=== PATIENT | female | born 1955 | race American Indian/Alaskan Native ===

== ENCOUNTER 2017-06-24 14:56 | Outpatient (CLI) | payer BC ==
--- NOTE | 2017-06-24 16:42 | XRay Report ---
FINAL REPORT EXAM: XR CHEST ROUTINE 2V HISTORY: HYPERTENSION TECHNIQUE: Two view chest PA and lateral PRIORS: None. FINDINGS: Cardiac and mediastinal contours are unremarkable. No focal pulmonary infiltrate is identified. No pleural fluid collection seen. Pulmonary vasculature is unremarkable. IMPRESSION: Negative two-view chest
== END 2017-06-24 14:57 | disposition home or self-care (01) ==
LOC: CARD 14:56
PROVIDERS: ATTEND Internal Medicine
DX: E11.9 Type 2 diabetes mellitus without complications (principal); I10 Essential (primary) hypertension; I51.7 Cardiomegaly; G43.909 Migraine, unspecified, not intractable, without status migrainosus; M79.89 Other specified soft tissue disorders; R79.89 Other specified abnormal findings of blood chemistry; Z79.4 Long term (current) use of insulin
CPT/HCPCS: 71046; 93005; 93010

== ENCOUNTER 2017-09-13 13:17 | Emergency (ER) | payer BC ==
--- NOTE | 2017-09-13 14:11 | Emergency Department Report ---
ED Abdominal Pain HPI - General Chief Complaint: Abdominal Pain Stated Complaint: ABD PAIN Time Seen by Provider: 09/13/17 14:04 Source: patient Mode of arrival: Ambulatory Limitations: No Limitations - History of Present Illness MD Complaint: abdominal pain -: Gradual, week(s) (1) Location: RUQ Radiation: back Migration to: no migration Severity: severe Severity scale (0 -10): 7 Quality: cramping Consistency: intermittent Context: other (when to pmd today, sent to ed for " liver imaging" ) - Related Data Previous Rx's Medication Instructions Recorded Last Taken Type Bisacodyl [Dulcolax suppos] 10 mg ND ONCE PRN #6 supp.rect 09/13/17 Unknown Rx Allergies Allergy/AdvReac Type Severity Reaction Status Date / Time No Known Allergies Allergy Unverified 06/24/17 14:57 ED Review of Systems ROS: Stated complaint: ABD PAIN Other details as noted in HPI Constitutional: denies: chills, fever Eyes: denies: eye pain, eye discharge, vision change ENT: denies: ear pain, throat pain Respiratory: denies: cough, shortness of breath, wheezing Cardiovascular: denies: chest pain, palpitations Endocrine: no symptoms reported Gastrointestinal: abdominal pain, nausea. denies: diarrhea Genitourinary: denies: urgency, dysuria, discharge Musculoskeletal: denies: back pain, joint swelling, arthralgia Skin: denies: rash, lesions Neurological: denies: headache, weakness, paresthesias Psychiatric: denies: anxiety, depression Hematological/Lymphatic: denies: easy bleeding, easy bruising ED Past Medical Hx - Past Medical History Hx Hypertension: Yes Hx Diabetes: Yes - Social History Smoking Status: Never Smoker Substance Use Type: None - Medications Home Medications: Home Medications Medication Instructions Recorded Confirmed Last Taken Type Bisacodyl [Dulcolax suppos] 10 mg ND ONCE PRN #6 supp.rect 09/13/17 Unknown Rx ED Physical Exam - General Limitations: No Limitations General appearance: alert, in no apparent distress - Head Head exam: Present: atraumatic, normocephalic - Eye Eye exam: Present: normal appearance - ENT ENT exam: Present: mucous membranes moist - Neck Neck exam: Present: normal inspection - Respiratory Respiratory exam: Present: normal lung sounds bilaterally. Absent: respiratory distress - Cardiovascular Cardiovascular Exam: Present: regular rate, normal rhythm. Absent: systolic murmur, diastolic murmur, rubs, gallop - GI/Abdominal GI/Abdominal exam: Present: soft, tenderness (ruq), normal bowel sounds - Extremities Exam Extremities exam: Present: normal inspection - Back Exam Back exam: Present: normal inspection - Neurological Exam Neurological exam: Present: alert, oriented X3, CN II-XII intact, normal gait. Absent: motor sensory deficit - Psychiatric Psychiatric exam: Present: normal affect, normal mood - Skin Skin exam: Present: warm, dry, intact, normal color. Absent: rash ED Course Vital Signs 09/13/17 09/13/17 13:19 18:18 Temperature 98.8 F 97.5 F L Pulse Rate 60 56 L Respiratory 15 Rate Blood Pressure 234/96 182/82 O2 Sat by Pulse 100 97 Oximetry ED Medical Decision Making - Lab Data Result diagrams: 09/13/17 13:54 09/13/17 13:54 - Radiology Data Radiology results: report reviewed (2mm gb wall, no stones, no pericholecystic fluid= u/s ct at 6:50= 2.5 cm L lung nodule- reported to pt, and no other acute process, constipation. ) Critical Care Time: No Critical care attestation.: If time is entered above; I have spent that time in minutes in the direct care of this critically ill patient, excluding procedure time. ED Disposition Clinical Impression: Abdominal pain Qualifiers: Abdominal location: generalized Qualified Code(s): R10.84 - Generalized abdominal pain Disposition: DC-01 TO HOME OR SELFCARE Is pt being admited?: No Does the pt Need Aspirin: No Condition: Stable Instructions: Abdominal Pain (ED) Additional Instructions: We were unable to find an emergent reason to explain your symptoms. You did not have pancreatitis or any acute, or emergent process on your cat scan. You were very constipated. Our radiologist did report some incidental findings , such as a 2.5 cm Left Lung nodule. Discuss this with your primary doctor in the morning , and arrange a visit. Share this discharge paragraph with your primary doctor, and continue to search for answers, Also, your primary doctor should arrange an evaluation with a wash rack operator. Prescriptions: Bisacodyl [Dulcolax suppos] 10 mg ND ONCE PRN #6 supp.rect PRN Reason: Constipation Referrals: PRIMARY CARE, [Primary Care Provider] - 3-5 Days Time of Disposition: 18:51
[2017-09-13 14:16] LABS: Basophils % (Auto) 0.1 % (0.0-1.8); Hematocrit 37.9 % (30.3-42.9); Hemoglobin 12.3 gm/dl (10.1-14.3); Lymphocytes # (Auto) 1.5 K/mm3 (1.2-5.4); Lymphocytes % (Auto) 24.5 % (13.4-35.0); Mean Corpuscular HGB Conc 33 % (30-34); Mean Corpuscular Hemoglobin 30 pg (28-32); Mean Corpuscular Volume 92 fl (79-97); Monocytes # (Auto) 0.5 K/mm3 (0.0-0.8); Monocytes % (Auto) 8.6 % (0.0-7.3)
[2017-09-13 14:17] LABS: Platelet Count 97 K/mm3 (140-440)
[2017-09-13 14:26] LABS: Alanine Aminotransferase 13 units/L (7-56); Albumin 2.6 g/dL (3.9-5); BUN/Creatinine Ratio 25; Blood Urea Nitrogen 20 mg/dL (7-17); Calcium 8.7 mg/dL (8.4-10.2); Hemolysis Index 0; Lipase 25 units/L (13-60)
--- NOTE | 2017-09-13 15:03 | Ultrasound Report ---
Sonogram right upper quadrant: History: Cholecystitis. Findings: Aortic diameter 2.7 cm. Normal liver. Normal echogenicity. No intrahepatic or extrahepatic duct dilatation. Common bile duct diameter 4 mm. Gallbladder wall thickness 2 mm. No calculi in gallbladder. No pericholecystic fluid. Right kidney 12.2 x 5.1 x 6.8 cm. Cortical thickness is 1.4 cm. No mass. No hydronephrosis. Normal pancreas. Impression: Essentially negative sonogram right upper quadrant.
[2017-09-13 15:40] LABS: Bilirubin,Urine NEG (Negative); Blood,Urine NEG (Negative); Color,Urine Yellow (Yellow); Mucus,Urine FEW /HPF; Urobilinogen,Urine < 2.0 mg/dL (<2.0)
[2017-09-13] MEDS ORDERED: ZOFRAN IV ONE (15:40)
[2017-09-13] MEDS ORDERED: DILAUDID IV ONE (15:41)
[2017-09-13 15:42] LABS: Protein,Urine >500 mg/dL (Negative)
[2017-09-13 18:28] VITALS: BP 182/82
--- NOTE | 2017-09-13 18:44 | Cat Scan Report ---
FINAL REPORT EXAM: CT ABDOMEN PELVIS W CON HISTORY: abd pain . TECHNIQUE: CT examination of the ABDOMEN after IV contrast CT examination of the PELVIS after IV contrast PRIORS: None. FINDINGS: Nonspecific relatively smoothly marginated lung nodule measures 2.5 cm in the left lower lobe base just posterior to the pericardium. The lesion contains heterogeneous fatty contents without calcification. This may be a pulmonary hamartoma but other neoplasm not excluded. Normal-appearing liver, contracted gallbladder, adrenals, pancreas, and spleen. Intact normal caliber abdominal aorta with slight calcified atherosclerotic plaque. Normal caliber IVC. Atherosclerotic plaque also noted in the common iliac arteries. Nonspecific, smoothly marginated, simple appearing, low density bilateral renal lesions are statistically most likely cysts. Each renal lesion contains fluid density. 4 mm nonobstructing left renal calculus. No hydronephrosis. No right renal calculus. No calculus or distention in the visible ureteral segments, partly obscured by adjacent anatomy. No retroperitoneal adenopathy. No mesenteric mass. Normal-appearing stomach and duodenum. No small bowel distention in the abdomen and pelvis. No pelvic free fluid. Normal-appearing urinary bladder. Scattered prominence of stool from the cecum to rectum may reflect constipation. Prominent gas and caliber throughout the colon may be mild paralytic ileus. Calcified nodules in the uterus are most compatible with degenerated fibroids. No adnexal abnormality. No gross ascites or free air. Normal-appearing terminal ileum and appendix. IMPRESSION: Prominent stool and caliber from cecum to rectum most compatible with constipation. Prominent gas throughout the colon may also reflect mild paralytic ileus 4 mm nonobstructing left renal calculus Calcified uterine nodules suggestive of degenerated fibroids
[2017-09-13] MEDS ORDERED: PERCOCET 5/325 ONE (18:46)
[2017-09-13] MEDS ORDERED: PERCOCET 5/325 PO ONE (18:46)
== END 2017-09-13 19:11 | disposition home or self-care (01) ==
LOC: ED 13:17
DX: R10.11 Right upper quadrant pain (principal); I10 Essential (primary) hypertension; E11.9 Type 2 diabetes mellitus without complications
CPT/HCPCS: 36415; 74177; 76705; 80053; 81001; 83690; 85025; 93005; 93010; 96374; 96375; 99284; J1170; J2405; Q9967

== ENCOUNTER 2019-04-04 20:15 | Emergency (ER) | payer SELFPAY ==
--- NOTE | 2019-04-04 20:52 | Event Note ---
ED Screening Note Date of service: 04/04/19 Time: 20:47 ED Screening Note: This is a 63 y.o. F. that presents to the ER diarrhea and HTN. PMH of Type 2 DM, HTN, & ESRD on dialysis. Patient states she attempt to go to dialysis today and turned away due to blood pressure 207/102. Given clonidine 0.2 with no improvement while in office. Patient reports diarrhea have a foul smell and cause her to wear a diaper. Denies tarry stool. This initial assessment/diagnostic orders/clinical plan/treatment(s) is/are subject to change based on patients health status, clinical progression and re- assessment by fellow clinical providers in the ED. Further treatment and workup at subsequent clinical providers discretion. Patient/guardian urged not to elope from the ED as their condition may be serious if not clinically assessed and managed. Initial orders include: Labs
[2019-04-04 21:41] LABS: Alanine Aminotransferase 22 units/L (7-56); Albumin 3.7 g/dL (3.9-5); BUN/Creatinine Ratio 11; Blood Urea Nitrogen 54 mg/dL (7-17); Calcium 8.6 mg/dL (8.4-10.2); Hemolysis Index 49
[2019-04-04 21:52] LABS: Eosinophils % (Auto) 0.1 % (0.0-4.3); Hematocrit 27.4 % (30.3-42.9); Hemoglobin 8.7 gm/dl (10.1-14.3); Lymphocytes # (Auto) 0.8 K/mm3 (1.2-5.4); Lymphocytes % (Auto) 21.1 % (13.4-35.0); Mean Corpuscular HGB Conc 32 % (30-34); Mean Corpuscular Volume 98 fl (79-97); Monocytes # (Auto) 0.4 K/mm3 (0.0-0.8); Monocytes % (Auto) 9.6 % (0.0-7.3); Platelet Count 137 K/mm3 (140-440); Red Cell Distribution Width 19.5 % (13.2-15.2)
[2019-04-04] MEDS ORDERED: INSULIN REGULAR, HUMAN 100 UNITS/1 ML IV ONE (22:31)
--- NOTE | 2019-04-04 22:39 | Emergency Department Report ---
ED General Adult HPI - General Chief complaint: High BP Stated complaint: DIARRHEA, HIGH BLOOD PRESSURE Time Seen by Provider: 04/04/19 20:46 Source: patient Mode of arrival: Ambulatory Limitations: No Limitations - History of Present Illness Initial comments: 63-year-old female with past medical history diabetes, hypertension and end- stage renal disease on dialysis presents to the hospital with elevated blood pressure and diarrhea. Patient with her dialysis clinic by dialysis was not performed because her blood pressure was 207/106. She received Clonidine 0.2 mg. Patient then had an episode of foul smelling diarrhea was sent to the ER for evaluation. Upon her arrival her blood pressure has improved. She denies headache, chest pain, or shortness of breath. She continues to have urine output several times a day. She states she's had foul smelling diarrhea since yesterday on average 3 episodes a day. She denies recent antibiotic use, t ravel, fever, melena, hematochezia, nausea, or vomiting. - Related Data Previous Rx's Medication Instructions Recorded Last Taken Type Bisacodyl [Dulcolax suppos] 10 mg [place] ONCE PRN #6 supp.rect 09/13/17 Unknown Rx Allergies Allergy/AdvReac Type Severity Reaction Status Date / Time No Known Allergies Allergy Unverified 06/24/17 14:57 ED Review of Systems ROS: Stated complaint: DIARRHEA, HIGH BLOOD PRESSURE Other details as noted in HPI Comment: All other systems reviewed and negative ED Past Medical Hx - Past Medical History Previous Medical History?: Yes Hx Hypertension: Yes Hx Diabetes: Yes - Surgical History Past Surgical History?: Yes Additional Surgical History: mass on intestion, av fistula, - Social History Smoking Status: Never Smoker Substance Use Type: None - Medications Home Medications: Home Medications Medication Instructions Recorded Confirmed Last Taken Type Bisacodyl [Dulcolax suppos] 10 mg [place] ONCE PRN #6 supp.rect 09/13/17 Unknown Rx ED Physical Exam - General Limitations: No Limitations - Other Other exam information: General: No acute distress Head: Atraumatic Eyes: normal appearance ENT: Moist mucous membranes Neck: Normal appearance, no midline tenderness Chest: Clear to auscultation bilaterally CV: Regular rate and rhythm Abdomen: Soft, normal bowel sounds, nontender, nondistended, no rebound or guarding Back: Normal inspection Extremity: Normal inspection infection, full range of motion Neuro: Alert O x 3, no facial asymmetry, speech clear, no gross motor sensory deficit Psych: Appropriate behavior Skin: No rash ED Course Vital Signs 04/04/19 04/04/19 04/04/19 20:23 22:09 22:13 Temperature 97.4 F L Pulse Rate 64 66 Respiratory 18 19 19 Rate Blood Pressure 149/72 Blood Pressure 163/82 [Left] O2 Sat by Pulse 98 98 98 Oximetry 04/04/19 23:56 Temperature Pulse Rate 68 Respiratory 17 Rate Blood Pressure Blood Pressure 167/72 [Left] O2 Sat by Pulse 98 Oximetry - Consultations Consultation #1: 04/04/19 22:32 I attempted to page dr isaiah Goncalves however anwering service would not page since they are not affiliated with [facility] I then called enterprise solutions architect longwall machine operator helper for [facility] Dr cali. agrees no indication for emergent dialysis. recommend contacting her longwall machine operator helper tomorrow. ED Medical Decision Making - Lab Data Result diagrams: 04/04/19 21:15 04/04/19 21:15 Lab Results 04/04/19 04/04/19 04/04/19 Range/Units 21:15 21:15 22:39 WBC 3.9 L (4.5-11.0) K/mm3 RBC 2.80 L (3.65-5.03) M/mm3 Hgb 8.7 L (10.1-14.3) gm/dl Hct 27.4 L (30.3-42.9) % MCV 98 H (79-97) fl MCH 31 (28-32) pg MCHC 32 (30-34) % RDW 19.5 H (13.2-15.2) % Plt Count 137 L (140-440) K/mm3 Lymph % (Auto) 21.1 (13.4-35.0) % [place] % (Auto) 9.6 H (0.0-7.3) % Eos % (Auto) 0.1 (0.0-4.3) % Baso % (Auto) Check Clerk Lymph # 0.8 L (1.2-5.4) K/mm3 [place] # 0.4 (0.0-0.8) K/mm3 Eos # 0.0 (0.0-0.4) K/mm3 Baso # 0.0 (0.0-0.1) K/mm3 Seg Neutrophils % 68.9 (40.0-70.0) % Seg Neutrophils # 2.7 (1.8-7.7) K/mm3 Sodium 136 L (137-145) mmol/L Potassium 4.7 (3.6-5.0) mmol/L Chloride 99.9 (98-107) mmol/L Carbon Dioxide 20 L (22-30) mmol/L Anion Gap 21 mmol/L BUN 54 H (7-17) mg/dL Creatinine 4.7 H (0.7-1.2) mg/dL Estimated GFR 11 ml/min BUN/Creatinine Ratio 11 % Glucose 421 H (65-100) mg/dL POC Glucose 480 H (70-105) Calcium 8.6 (8.4-10.2) mg/dL Total Bilirubin < 0.20 (0.1-1.2) mg/dL AST 20 (5-40) units/L ALT 22 (7-56) units/L Alkaline Phosphatase 72 (35-129) units/L Total Protein 5.8 L (6.3-8.2) g/dL Albumin 3.7 L (3.9-5) g/dL Albumin/Globulin Ratio 1.8 % /16/ Range/Units 23:52 WBC (4.5-11.0) K/mm3 RBC (3.65-5.03) M/mm3 Hgb (10.1-14.3) gm/dl Hct (30.3-42.9) % MCV (79-97) fl MCH (28-32) pg MCHC (30-34) % RDW (13.2-15.2) % Plt Count (140-440) K/mm3 Lymph % (Auto) (13.4-35.0) % [place] % (Auto) (0.0-7.3) % Eos % (Auto) (0.0-4.3) % Baso % (Auto) Lymph # (1.2-5.4) K/mm3 [place] # (0.0-0.8) K/mm3 Eos # (0.0-0.4) K/mm3 Baso # (0.0-0.1) K/mm3 Seg Neutrophils % (40.0-70.0) % Seg Neutrophils # (1.8-7.7) K/mm3 Sodium (137-145) mmol/L Potassium (3.6-5.0) mmol/L Chloride (98-107) mmol/L Carbon Dioxide (22-30) mmol/L Anion Gap mmol/L BUN (7-17) mg/dL Creatinine (0.7-1.2) mg/dL Estimated GFR ml/min BUN/Creatinine Ratio % Glucose (65-100) mg/dL POC Glucose 437 H (70-105) Calcium (8.4-10.2) mg/dL Total Bilirubin (0.1-1.2) mg/dL AST (5-40) units/L ALT (7-56) units/L Alkaline Phosphatase (35-129) units/L Total Protein (6.3-8.2) g/dL Albumin (3.9-5) g/dL Albumin/Globulin Ratio % - Medical Decision Making She has hyperglycemia. She ate pizza and a Butterfinger while in the waiting room did not have her evening insulin dose. She has not had symptoms of DKA. Patient declined IV access for IV insulin. She received subcutaneous regular insulin 10 units. One hour later her glucose is still elevated but trending downward. Patient declined any additional treatment for her hyperglycemia is states she will manage it at home. She is informed to call her longwall machine operator helper in the morning for further instructions regarding her dialysis treatment. At this time I do not feel that antibiotics are warranted for her diarrhea. - Differential Diagnosis hypertensive emergency/urgency, volume overload, enteritis Critical Care Time: No Critical care attestation.: If time is entered above; I have spent that time in minutes in the direct care of this critically ill patient, excluding procedure time. ED Disposition Clinical Impression: Uncontrolled hypertension, Hyperglycemia, ESRD on dialysis, Acute diarrhea Disposition: DC-01 TO HOME OR SELFCARE Is pt being admited?: No Does the pt Need Aspirin: No Condition: Stable Instructions: Hypertension (ED), Diabetic Hyperglycemia (ED), End-Stage Kidney Disease (ED), Acute Diarrhea (ED) Additional Instructions: Continue your medication as prescribed. Follow-up with your doctor or doctor/clinic provided. Return if symptoms worsen as indicated by your discharge instructions. Referrals: PRIMARY CARE, [Primary Care Provider] - 3-5 Days Isaiah Goncalves [Other] - 04/05/19 (call your dialysis clinic in the morning for further instructions regarding scheduling your next dialysis) Time of Disposition: 00:03
[2019-04-05 00:04] VITALS: BP 167/72
== END 2019-04-05 00:30 | disposition home or self-care (01) ==
LOC: ED 20:15
DX: R19.7 Diarrhea, unspecified (principal); E11.65 Type 2 diabetes mellitus with hyperglycemia; E11.22 Type 2 diabetes mellitus with diabetic chronic kidney disease; I12.0 Hypertensive chronic kidney disease with stage 5 chronic kidney disease or end stage renal disease; N18.6 End stage renal disease; Z99.2 Dependence on renal dialysis; Z79.4 Long term (current) use of insulin
CPT/HCPCS: 36415; 80053; 82962; 85025; 96374; J1815

== ENCOUNTER 2021-05-01 05:33 | Observation (INO) | payer BC, MEDICARE ==
[2021-05-01] MEDS ORDERED: ONDANSETRON 4 MG/2 ML INJ IV ONE (06:24)
[2021-05-01] MEDS ORDERED: MORPHINE 4 MG/1 ML INJ IV ONE (06:24)
[2021-05-01] MEDS ORDERED: ASPIRIN 81 MG TAB CHEW PO ONE (06:27)
--- NOTE | 2021-05-01 06:29 | Emergency Department Report ---
ED Chest Pain HPI - General Chief Complaint: Chest Pain Stated Complaint: CHEST PAIN Time Seen by Provider: 05/01/21 06:19 Source: patient Mode of arrival: Ambulatory Limitations: No Limitations - History of Present Illness Initial Comments: Patient is 65 years old female with history of end-stage renal disease on hemodialysis, hypertension. Patient brought to the emergency room for evaluation of substernal chest pain that started last night. Patient described her pain as aching with no radiation. Patient rated her pain as 7 out of 10. No relieving or aggravating factors. Patient denied any fever or chills. No nausea or vomiting. She is also complaining of mild shortness of breath. She stated that she had dialysis yesterday. MD Complaint: chest pain -: Last night Onset: during rest Pain Location: substernal Pain Radiation: none Severity: moderate Severity scale (0 -10): 5 Quality: aching Consistency: constant - Related Data Home Medications Medication Instructions Recorded Confirmed Last Taken Albuterol Mdi (or & Nicu Only) 2 puff IH QID PRN 03/23/21 03/23/21 03/22/21 [ProAir HFA Inhaler] Aspirin EC [Halfprin EC] 81 mg PO QDAY 03/23/21 03/23/21 03/22/21 AtorvaSTATin [Lipitor] 20 mg PO QHS 03/23/21 03/23/21 03/21/21 Calcium Acetate [Phoslo] 667 mg PO TID 03/23/21 03/23/21 03/22/21 Clopidogrel [Plavix] 75 mg PO QDAY 03/23/21 03/23/21 03/22/21 Hydralazine HCl 100 mg PO TID 03/23/21 03/23/21 03/22/21 Insulin Glargine,Hum.rec.anlog 22 unit SQ QHS 03/23/21 03/23/21 03/21/21 [Lantus Solostar] Insulin Lispro [Humalog 100 3 units SQ TIDAC 03/23/21 03/23/21 03/22/21 UNITS/ML Kwikpen] LORazepam [Lorazepam] 0.5 mg PO DAILY PRN 03/23/21 03/23/21 03/22/21 NIFEdipine [Nifedipine ER] 60 mg PO BID 03/23/21 03/23/21 03/22/21 Pnv No.121/Iron/Folic Acid 1 each PO QDAY 03/23/21 03/23/21 03/22/21 [ Multivitamin Tablet] carvediloL [Coreg] 12.5 mg PO BID 03/23/21 03/23/21 03/22/21 cloNIDine-TTS PATCH [Catapres-Tts 1 patch TD Q7D 03/23/21 03/23/21 03/20/21 0.3mg Patch] lisinopriL [Lisinopril] 20 mg PO QDAY 03/23/21 03/23/21 03/22/21 oxyCODONE /ACETAMINOPHEN [Percocet 1 tab PO BID 03/23/21 03/23/21 03/22/21 5/325 mg] Previous Rx's Medication Instructions Recorded Last Taken Type levoFLOXacin [Levaquin] 250 mg PO QDAY #3 tablet 03/27/21 Unknown Rx Allergies Allergy/AdvReac Type Severity Reaction Status Date / Time No Known Allergies Allergy Verified 05/01/21 05:40 Heart Score - HEART Score History: Moderately suspicious EKG: Non-specific Age: 45-65 Risk factors: > 3 risk factors or hx of atherosclerotic disease Troponin: < normal limit HEART Score: 5 - EKG Read Time Time EKG Completed: 05:43 EKG Read Time: 05:47 - Critical Actions Critical Actions: 4-6 pts:12-16.6% risk of adverse cardiac event. Should be admitted ED Review of Systems ROS: Stated complaint: CHEST PAIN Other details as noted in HPI Comment: All other systems reviewed and negative Constitutional: denies: chills, fever Respiratory: shortness of breath, SOB with exertion, SOB at rest. denies: cough, orthopnea Cardiovascular: chest pain. denies: palpitations Gastrointestinal: denies: abdominal pain, nausea, vomiting, diarrhea, constipation, hematemesis Musculoskeletal: denies: back pain Neurological: denies: headache, weakness, numbness ED Past Medical Hx - Past Medical History Hx Hypertension: Yes Hx Diabetes: Yes Hx Renal Disease: Yes (Left fistula, dialysis Saturday, and Saturday) - Surgical History Additional Surgical History: mass on intestion, av fistula, - Social History Smoking Status: Never Smoker - Medications Home Medications: Home Medications Medication Instructions Recorded Confirmed Last Taken Type Albuterol Mdi (or & Nicu Only) 2 puff IH QID PRN 03/23/21 03/23/21 03/22/21 History [ProAir HFA Inhaler] Aspirin EC [Halfprin EC] 81 mg PO QDAY 03/23/21 03/23/21 03/22/21 History AtorvaSTATin [Lipitor] 20 mg PO QHS 03/23/21 03/23/21 03/21/21 History Calcium Acetate [Phoslo] 667 mg PO TID 03/23/21 03/23/21 03/22/21 History Clopidogrel [Plavix] 75 mg PO QDAY 03/23/21 03/23/21 03/22/21 History Hydralazine HCl 100 mg PO TID 03/23/21 03/23/21 03/22/21 History Insulin Glargine,Hum.rec.anlog 22 unit SQ QHS 03/23/21 03/23/21 03/21/21 History [Lantus Solostar] Insulin Lispro [Humalog 100 3 units SQ TIDAC 03/23/21 03/23/21 03/22/21 History UNITS/ML Kwikpen] LORazepam [Lorazepam] 0.5 mg PO DAILY PRN 03/23/21 03/23/21 03/22/21 History NIFEdipine [Nifedipine ER] 60 mg PO BID 03/23/21 03/23/21 03/22/21 History Pnv No.121/Iron/Folic Acid 1 each PO QDAY 03/23/21 03/23/21 03/22/21 History [ Multivitamin Tablet] carvediloL [Coreg] 12.5 mg PO BID 03/23/21 03/23/21 03/22/21 History cloNIDine-TTS PATCH [Catapres-Tts 1 patch TD Q7D 03/23/21 03/23/21 03/20/21 History 0.3mg Patch] lisinopriL [Lisinopril] 20 mg PO QDAY 03/23/21 03/23/21 03/22/21 History oxyCODONE /ACETAMINOPHEN [Percocet 1 tab PO BID 03/23/21 03/23/21 03/22/21 History 5/325 mg] levoFLOXacin [Levaquin] 250 mg PO QDAY #3 tablet 03/27/21 Unknown Rx ED Physical Exam - General Limitations: No Limitations General appearance: alert, in no apparent distress - Head Head exam: Present: atraumatic, normocephalic, normal inspection - Eye Eye exam: Present: normal appearance, PERRL - ENT ENT exam: Present: normal exam, normal orophraynx, mucous membranes moist - Neck Neck exam: Present: normal inspection, full ROM. Absent: tenderness, meningismus - Respiratory Respiratory exam: Present: normal lung sounds bilaterally. Absent: respiratory distress, wheezes, rales, rhonchi, chest wall tenderness - Cardiovascular Cardiovascular Exam: Present: regular rate, normal rhythm, normal heart sounds - GI/Abdominal GI/Abdominal exam: Present: soft, normal bowel sounds. Absent: distended, tenderness, guarding, rebound, rigid, organomegaly, mass, bruit, pulsatile mass - Neurological Exam Neurological exam: Present: alert, oriented X3, CN II-XII intact - Psychiatric Psychiatric exam: Present: normal mood - Skin Skin exam: Present: warm, intact, normal color ED Course Vital Signs 05/01/21 05:34 Temperature 99.4 F Pulse Rate 75 Respiratory 22 Rate Blood Pressure 225/79 [Right] O2 Sat by Pulse 97 Oximetry ED Medical Decision Making - Lab Data Result diagrams: 05/01/21 06:34 05/01/21 06:34 - EKG Data -: EKG Interpreted by Me EKG shows normal: sinus rhythm Rate: normal - EKG Data Interpretation: no acute changes - Radiology Data Radiology results: report reviewed - Medical Decision Making Patient is 65 years old female with history of end-stage renal disease on hemodialysis, hypertension. Patient brought to the emergency room for evaluation of substernal chest pain that started last night. Patient described her pain as aching with no radiation. Patient rated her pain as 7 out of 10. No relieving or aggravating factors. Patient denied any fever or chills. No nausea or vomiting. She is also complaining of mild shortness of breath. She stated that she had dialysis yesterday. EKG showed no ST elevation. Chest x-ray is unremarkable. Labs reviewed and showed slightly elevated troponin however creatinine and BUN are high secondary to her end-stage renal failure. Patient received aspirin, morphine and Zofran. I discussed the patient with he advised to admit the patient to Dr. Montano. Critical Care Time: Yes Critical care time in (mins) excluding proc time.: 35 Critical care attestation.: If time is entered above; I have spent that time in minutes in the direct care of this critically ill patient, excluding procedure time. ED Disposition Clinical Impression: Unstable angina, ESRD needing dialysis Disposition: 02 [facility]M [facility] Is pt being admited?: Yes Condition: Stable Instructions: Angina, [id number]
--- NOTE | 2021-05-01 06:57 | XRay Report ---
XR chest 1V ap INDICATION / CLINICAL INFORMATION: Chest Pain. COMPARISON: 03/26/2021 FINDINGS: SUPPORT DEVICES: None. HEART /PULMONARY VASCULATURE: There is cardiac enlargement. Pulmonary vasculature is mildly congested . LUNGS / PLEURA: No focal airspace consolidation. No sizable pleural effusion. No pneumothorax. ADDITIONAL FINDINGS: No significant additional findings. IMPRESSION: Cardiomegaly with mild congestion of the pulmonary vasculature. Signer Name: Joaquin Lara MD Signed: 05/01/2021 6:53 AM Workstation Name: [id number]
[2021-05-01 07:06] LABS: Basophils % (Auto) 0.1 % (0.0-1.8); Hematocrit 33.7 % (30.3-42.9); Hemoglobin 10.4 gm/dl (10.1-14.3); Lymphocytes # (Auto) 0.3 K/mm3 (1.2-5.4); Lymphocytes % (Auto) 4.2 % (13.4-35.0); Mean Corpuscular HGB Conc 31 % (30-34); Mean Corpuscular Volume 98 fl (79-97); Monocytes # (Auto) 0.7 K/mm3 (0.0-0.8); Monocytes % (Auto) 10.3 % (0.0-7.3); Platelet Count 145 K/mm3 (140-440); Red Blood Count 3.45 M/mm3 (3.65-5.03); Red Cell Distribution Width 15.1 % (13.2-15.2)
[2021-05-01 07:17] LABS: INR 0.89 (0.87-1.13)
[2021-05-01 07:18] LABS: Partial Thromboplastin Time 31.5 Sec. (24.2-36.6)
[2021-05-01 07:23] LABS: Calcium 9.4 mg/dL (8.4-10.2)
[2021-05-01 07:27] LABS: Alanine Aminotransferase 6 units/L (7-56)
[2021-05-01 07:28] LABS: Bilirubin,Direct < 0.2 mg/dL (0-0.2)
[2021-05-01 07:44] LABS: Chol/HDL Ratio 2.51 %
[2021-05-01] MEDS ORDERED: INSULIN REGULAR, HUMAN 100 UNITS/1 ML IV ONE (08:07)
[2021-05-01] MEDS ORDERED: hydrALAZINE 100 MG TAB PO NR (08:24)
--- NOTE | 2021-05-01 08:39 | History and Physical Report ---
Medications and Allergies Allergies Allergy/AdvReac Type Severity Reaction Status Date / Time No Known Allergies Allergy Verified 05/01/21 05:40 Home Medications Medication Instructions Recorded Confirmed Last Taken Type Albuterol Mdi (or & Nicu Only) 2 puff IH QID PRN 03/23/21 03/23/21 03/22/21 Hi story [ProAir HFA Inhaler] Aspirin EC [Halfprin EC] 81 mg PO QDAY 03/23/21 03/23/21 03/22/21 History AtorvaSTATin [Lipitor] 20 mg PO QHS 03/23/21 03/23/21 03/21/21 History Calcium Acetate [Phoslo] 667 mg PO TID 03/23/21 03/23/21 03/22/21 History Clopidogrel [Plavix] 75 mg PO QDAY 03/23/21 03/23/21 03/22/21 History Hydralazine HCl 100 mg PO TID 03/23/21 03/23/21 03/22/21 History Insulin Glargine,Hum.rec.anlog 22 unit SQ QHS 03/23/21 03/23/21 03/21/21 History [Lantus Solostar] Insulin Lispro [Humalog 100 3 units SQ TIDAC 03/23/21 03/23/21 03/22/21 History UNITS/ML Kwikpen] LORazepam [Lorazepam] 0.5 mg PO DAILY PRN 03/23/21 03/23/21 03/22/21 History NIFEdipine [Nifedipine ER] 60 mg PO BID 03/23/21 03/23/21 03/22/21 History Pnv No.121/Iron/Folic Acid 1 each PO QDAY 03/23/21 03/23/21 03/22/21 History [ Multivitamin Tablet] carvediloL [Coreg] 12.5 mg PO BID 03/23/21 03/23/21 03/22/21 History cloNIDine-TTS PATCH [Catapres-Tts 1 patch TD Q7D 03/23/21 03/23/21 03/20/21 History 0.3mg Patch] lisinopriL [Lisinopril] 20 mg PO QDAY 03/23/21 03/23/21 03/22/21 History oxyCODONE /ACETAMINOPHEN [Percocet 1 tab PO BID 11/09/0703/23/21 03/22/21 History 5/325 mg] levoFLOXacin [Levaquin] 250 mg PO QDAY #3 tablet 03/27/21 Unknown Rx Active Meds: Active Medications Acetaminophen (Acetaminophen 325 Mg Tab) 650 mg PO Q4H PRN PRN Reason: Pain MILD(1-3)/Fever >100.5/PIÑA Heparin Sodium (Porcine) (Heparin 5,000 Unit/1 Ml Vial) 5,000 unit SUB-Q Q8HR KO Hydralazine HCl (Hydralazine 100 Mg Tab) 100 mg PO ONCE ONE Stop: 05/01/21 08:25 Morphine Sulfate (Morphine 4 Mg/1 Ml Inj) 4 mg IV Q4H PRN PRN Reason: Pain , Severe (7-10) Naloxone HCl (Naloxone 0.4 Mg/1 Ml Inj) 0.1 mg IV Q2MIN PRN PRN Reason: Res Rate </= 8 or 02 SAT < 92% Ondansetron HCl (Ondansetron 4 Mg/2 Ml Inj) 4 mg IV Q8H PRN PRN Reason: Nausea And Vomiting Oxycodone/Acetaminophen (Oxycodone /Acetaminophen 5-325mg Tab) 1 tab PO Q6H PRN PRN Reason: Pain, Moderate (4-6) Sodium Chloride (Sodium Chloride 0.9% 10 Ml Flush Syringe) 10 ml IV BID KO Sodium Chloride (Sodium Chloride 0.9% 10 Ml Flush Syringe) 10 ml IV PRN PRN PRN Reason: LINE FLUSH Exam - Constitutional Vitals: Temp Pulse Resp BP Pulse Ox 99.4 F 75 22 225/79 97 05/01/21 05:34 05/01/21 05:34 05/01/21 05:34 05/01/21 05:34 05/01/21 05:34 HEART Score - HEART Score EKG: Non-specific Age: 45-65 Risk factors: > 3 risk factors or hx of atherosclerotic disease Troponin: Troponin T 0.080 ng/mL (0.00-0.029) H 05/01/21 06:34 Troponin: < normal limit - Critical Actions Critical Actions: 4-6 pts:12-16.6% risk of adverse cardiac event. Should be a dmitted Results - Labs CBC & Chem 7: 05/01/21 06:34 05/01/21 06:34 Labs: Laboratory Last Values WBC 6.3 K/mm3 (4.5-11.0) 05/01/21 06:34 RBC 3.45 M/mm3 (3.65-5.03) L 05/01/21 06:34 Hgb 10.4 gm/dl (10.1-14.3) 05/01/21 06:34 Hct 33.7 % (30.3-42.9) 05/01/21 06:34 MCV 98 fl (79-97) H 05/01/21 06:34 MCH 30 pg (28-32) 05/01/21 06:34 MCHC 31 % (30-34) 05/01/21 06:34 RDW 15.1 % (13.2-15.2) 05/01/21 06:34 Plt Count 145 K/mm3 (140-440) 05/01/21 06:34 Lymph % (Auto) 4.2 % (13.4-35.0) L 05/01/21 06:34 [place] % (Auto) 10.3 % (0.0-7.3) H 05/01/21 06:34 Eos % (Auto) 0.0 % (0.0-4.3) 05/01/21 06:34 Baso % (Auto) 0.1 % (0.0-1.8) 05/01/21 06:34 Lymph # (Auto) 0.3 K/mm3 (1.2-5.4) L 05/01/21 06:34 [place] # (Auto) 0.7 K/mm3 (0.0-0.8) 05/01/21 06:34 Eos # (Auto) 0.0 K/mm3 (0.0-0.4) 05/01/21 06:34 Baso # (Auto) 0.0 K/mm3 (0.0-0.1) 05/01/21 06:34 Seg Neutrophils % 85.4 % (40.0-70.0) H 05/01/21 06:34 Seg Neutrophils # 5.4 K/mm3 (1.8-7.7) 05/01/21 06:34 PT 13.1 Sec. (12.2-14.9) 05/01/21 06:34 INR 0.89 (0.87-1.13) 05/01/21 06:34 APTT 31.5 Sec. (24.2-36.6) 05/01/21 06:34 Sodium 135 mmol/L (137-145) L 05/01/21 06:34 Potassium 4.9 mmol/L (3.6-5.0) 05/01/21 06:34 Chloride 93.7 mmol/L (98-107) L 05/01/21 06:34 Carbon Dioxide 26 mmol/L (22-30) 05/01/21 06:34 Anion Gap 20 mmol/L 05/01/21 06:34 BUN 43 mg/dL (7-17) H 05/01/21 06:34 Creatinine 7.1 mg/dL (0.6-1.2) H 05/01/21 06:34 Estimated GFR 7 ml/min 05/01/21 06:34 BUN/Creatinine Ratio 6 % 05/01/21 06:34 Glucose 332 mg/dL (65-100) H 05/01/21 06:34 Calcium 9.4 mg/dL (8.4-10.2) 05/01/21 06:34 Total Bilirubin 0.40 mg/dL (0.1-1.2) 05/01/21 06:34 Direct Bilirubin < 0.2 mg/dL (0-0.2) 05/01/21 06:34 Indirect Bilirubin 0.2 mg/dL 05/01/21 06:34 AST 9 units/L (5-40) 05/01/21 06:34 ALT 6 units/L (7-56) L 05/01/21 06:34 Alkaline Phosphatase 101 units/L (35-129) 05/01/21 06:34 Troponin T 0.080 ng/mL (0.00-0.029) H 05/01/21 06:34 Total Protein 6.9 g/dL (6.3-8.2) 05/01/21 06:34 Albumin 4.0 g/dL (3.9-5) 05/01/21 06:34 Albumin/Globulin Ratio 1.4 % 05/01/21 06:34 Triglycerides 51 mg/dL (2-149) 05/01/21 06:34 Cholesterol 146 mg/dL (50-199) 05/01/21 06:34 LDL Cholesterol Direct 83 mg/dL (50-130) 05/01/21 06:34 HDL Cholesterol 58 mg/dL (40-59) 05/01/21 06:34 Cholesterol/HDL Ratio 2.51 % 05/01/21 06:34 Lipase 24 units/L (13-60) 05/01/21 06:34
[2021-05-01] MEDS ORDERED: MORPHINE 4 MG/1 ML INJ IV PRN (09:00)
[2021-05-01] MEDS ORDERED: ONDANSETRON 4 MG/2 ML INJ IV PRN (09:00)
[2021-05-01] MEDS ORDERED: ACETAMINOPHEN 325 MG TAB PO PRN (09:00)
[2021-05-01] MEDS ORDERED: HEPARIN 5,000 UNIT/1 ML VIAL SUB-Q SCH (09:00)
[2021-05-01] MEDS ORDERED: NALOXONE 0.4 MG/1 ML INJ IV PRN (09:00)
[2021-05-01] MEDS ORDERED: oxyCODONE /ACETAMINOPHEN 5-325MG TAB PO PRN (09:00)
[2021-05-01 11:22] VITALS: BP 158/86
--- NOTE | 2021-05-01 11:38 | Discharge Summary ---
Providers - Providers Date of Admission: 05/01/21 08:17 Attending physician: JANE NICHOLS MD 05/01/21 08:17 Consult to Physician [CONS] Urgent Comment: Consulting Provider: CHRISTI SEGAL Physician Instructions: Reason For Exam: dialysis while inpatient Primary care physician: PHARMACOMETRICIAN Hospitalization Condition: Stable Exam - Constitutional Vitals: Temp Pulse Resp BP Pulse Ox 99.4 F 62 16 158/86 98 05/01/21 05:34 05/01/21 11:19 05/01/21 11:19 05/01/21 11:19 05/01/21 11:19 Plan Care Plan Goals: Follow-up with primary care doctor discharge. Continue to go to dialysis as scheduled every Saturday, , Saturday. Follow up with: PRIMARY CARE, [Primary Care Provider] - 3-5 Days Prescriptions: Simethicone [Gas Relief] 80 mg PO Q6H PRN 5 Days #20 tab.chew PRN Reason: Gas Pain
--- NOTE | 2021-05-02 10:16 | Electrocardiograph Report ---
[facility] Test Date: 2021-05-01 Test Time: 05:43:04 Pat Name: LINDSAY ROTH Department: Room: [facility] Gender: F Bill Peddler: SHARA : 1955 Requested By: NORIS ASTORGA Order Number: [id number] Reading MD: Edgardo Elizondo Measurements Intervals [place] Rate: 70 P: 72 W[place]: 154 QRS: 39 QRSD: 95 T: 76 QT: 415 QTc: 450 Interpretive Statements Sinus rhythm Left ventricular hypertrophy nonspecific st-t Compared to ECG 03/23/2021 04:29:42 Electronically Signed On 05-02-2021 10:16:15 EST by Edgardo Elizondo
== END 2021-05-01 15:03 | disposition home or self-care (01) ==
LOC: ED 05:33 → 4A 08:17 → UNDODISOB 13:03
PROVIDERS: ADMIT Student in an Organized Health Care Education/Training Program; ATTEND Student in an Organized Health Care Education/Training Program
DX: I20.0 Unstable angina (principal); I16.0 Hypertensive urgency; I12.0 Hypertensive chronic kidney disease with stage 5 chronic kidney disease or end stage renal disease; N18.6 End stage renal disease; Z99.2 Dependence on renal dialysis; Z79.82 Long term (current) use of aspirin; Z79.4 Long term (current) use of insulin; Z79.899 Other long term (current) drug therapy; Z98.890 Other specified postprocedural states
CPT/HCPCS: 36415; 71045; 80048; 80061; 80076; 83690; 83880; 84484; 85025; 85610; 85730; 93005; 96372; 96374; 96375; 96376; 99291; G0378; J1644; J2270; J2405; Q9967; J1815

== ENCOUNTER 2021-05-02 03:56 | Observation (INO) | payer BC, MEDICARE ==
[2021-05-02] MEDS ORDERED: MORPHINE 4 MG/1 ML INJ IV ONE (04:10)
[2021-05-02] MEDS ORDERED: ONDANSETRON 4 MG/2 ML INJ IV ONE (04:10)
[2021-05-02] MEDS ORDERED: ONDANSETRON 4 MG/2 ML INJ ONE (04:14)
[2021-05-02] MEDS ORDERED: MORPHINE 4 MG/1 ML INJ ONE (04:14)
--- NOTE | 2021-05-02 04:23 | Emergency Department Report ---
ED Chest Pain HPI - General Stated Complaint: cp Time Seen by Provider: 05/02/21 04:01 - History of Present Illness Initial Comments: 65-year-old -Irish female presents to the emergency department via EMS from home with a complaint of sharp substernal chest pain that woke her from sleep a few hours ago. This patient was seen here for the same symptoms yesterday, 05/01. The patient was admitted to the hospitalist service and was discharged home yesterday afternoon after having downtrending troponins and getting relief of her chest discomfort. She has a past medical history of hypertension, diabetes, and end-stage renal disease was on hemodialysis on Saturday//Saturday. Her money room supervisor is Dr. Lama. Patient had an echocardiogram done in March showing only mild diastolic dysfunction with an EF of about 50%. The patient says that she has never had a stress test done. Currently the patient says that the chest pain is 9 out of 10 in intensity. No known aggravating or alleviating factors. EMS initially called in this patient as a possible STEMI alert. EKG was sent over to the business analyst ecommerce on-call, Dr. Angela, who did not feel that the EKG had a morphology consistent with ST elevation [place]. STEMI activation was canceled. - Related Data Home Medications Medication Instructions Recorded Confirmed Last Taken Albuterol Mdi (or & Nicu Only) 2 puff IH QID PRN 03/23/21 05/01/21 03/22/21 [ProAir HFA Inhaler] Aspirin EC [Halfprin EC] 81 mg PO QDAY 03/23/21 05/01/21 03/22/21 AtorvaSTATin [Lipitor] 20 mg PO QHS 03/23/21 05/01/21 03/21/21 Calcium Acetate [Phoslo] 667 mg PO TID 03/23/21 05/01/21 03/22/21 Clopidogrel [Plavix] 75 mg PO QDAY 03/23/21 05/01/21 03/22/21 Hydralazine HCl 100 mg PO TID 03/23/21 05/01/21 03/22/21 Insulin Glargine,Hum.rec.anlog 22 unit SQ QHS 03/23/21 05/01/21 03/21/21 [Lantus Solostar] Insulin Lispro [Humalog 100 3 units SQ TIDAC 03/23/21 05/01/21 03/22/21 UNITS/ML Kwikpen] NIFEdipine [Nifedipine ER] 60 mg PO BID 03/23/21 05/01/21 03/22/21 carvediloL [Coreg] 12.5 mg PO BID 03/23/21 05/01/21 03/22/21 cloNIDine-TTS PATCH [Catapres-Tts 1 patch TD Q7D 03/23/21 05/01/21 03/20/21 0.3mg Patch] lisinopriL [Lisinopril] 20 mg PO QDAY 03/23/21 05/01/21 03/22/21 oxyCODONE /ACETAMINOPHEN [Percocet 1 tab PO BID 03/23/21 05/01/21 03/22/21 5/325 mg] Previous Rx's Medication Instructions Recorded Last Taken Type Simethicone [Gas Relief] 80 mg PO Q6H PRN 5 Days #20 05/01/21 Unknown Rx tab.chew Allergies Allergy/AdvReac Type Severity Reaction Status Date / Time No Known Allergies Allergy Verified 05/01/21 05:40 Heart Score - HEART Score History: Slightly suspicious EKG: Non-specific Age: 45-65 Risk factors: 1-2 risk factors Troponin: 1-3x normal limit HEART Score: 4 - EKG Read Time Time EKG Completed: 03:58 EKG Read Time: 04:00 - Critical Actions Critical Actions: 4-6 pts:12-16.6% risk of adverse cardiac event. Should be admitted ED Review of Systems ROS: Stated complaint: cp Other details as noted in HPI Comment: All other systems reviewed and negative Constitutional: denies: chills, fever Eyes: denies: eye pain, vision change ENT: denies: ear pain, throat pain Respiratory: shortness of breath. denies: cough Cardiovascular: chest pain. denies: palpitations Gastrointestinal: denies: abdominal pain, vomiting Genitourinary: denies: dysuria, discharge Musculoskeletal: denies: back pain, arthralgia Skin: denies: rash, lesions Neurological: denies: headache, weakness ED Past Medical Hx - Past Medical History Hx Hypertension: Yes Hx Diabetes: Yes Hx Renal Disease: Yes (Left fistula, dialysis Saturday, and Saturday) - Surgical History Additional Surgical History: mass on intestion, av fistula, - Social History Smoking Status: Never Smoker Substance Use Type: None - Medications Home Medications: Home Medications Medication Instructions Recorded Confirmed Last Taken Type Albuterol Mdi (or & Nicu Only) 2 puff IH QID PRN 03/23/21 05/01/21 03/22/21 History [ProAir HFA Inhaler] Aspirin EC [Halfprin EC] 81 mg PO QDAY 03/23/21 05/01/21 03/22/21 History AtorvaSTATin [Lipitor] 20 mg PO QHS 03/23/21 05/01/21 03/21/21 History Calcium Acetate [Phoslo] 667 mg PO TID 03/23/21 05/01/21 03/22/21 History Clopidogrel [Plavix] 75 mg PO QDAY 03/23/21 05/01/21 03/22/21 History Hydralazine HCl 100 mg PO TID 03/23/21 05/01/21 03/22/21 History Insulin Glargine,Hum.rec.anlog 22 unit SQ QHS 03/23/21 05/01/21 03/21/21 History [Lantus Solostar] Insulin Lispro [Humalog 100 3 units SQ TIDAC 03/23/21 05/01/21 03/22/21 History UNITS/ML Kwikpen] NIFEdipine [Nifedipine ER] 60 mg PO BID 03/23/21 05/01/21 03/22/21 History carvediloL [Coreg] 12.5 mg PO BID 03/23/21 05/01/21 03/22/21 History cloNIDine-TTS PATCH [Catapres-Tts 1 patch TD Q7D 03/23/21 05/01/21 03/20/21 History 0.3mg Patch] lisinopriL [Lisinopril] 20 mg PO QDAY 03/23/21 05/01/21 03/22/21 History oxyCODONE /ACETAMINOPHEN [Percocet 1 tab PO BID 03/23/21 05/01/21 03/22/21 History 5/325 mg] Simethicone [Gas Relief] 80 mg PO Q6H PRN 5 Days #20 05/01/21 Unknown Rx tab.chew ED Physical Exam - Other Other exam information: GENERAL: The patient is well-developed well-nourished. HENT: Normocephalic. Atraumatic. Patient has moist mucous membranes. EYES: Extraocular motions are intact. NECK: Supple. Trachea is midline. CHEST/LUNGS: Clear to auscultation. There is no respiratory distress noted. Unable to reproduce chest pain to palpation of the chest wall. No crepitus or deformity. HEART/CARDIOVASCULAR: Regular. There is no tachycardia. There is no murmur. ABDOMEN: Abdomen is soft, nontender. Patient has normal bowel sounds. SKIN: Skin is warm and dry. NEURO: The patient is awake, alert, and oriented. The patient is cooperative. The patient has no focal neurologic deficits. Normal speech. MUSCULOSKELETAL: There is no tenderness or deformity. There is no limitation range of motion. ED Course Vital Signs 05/02/21 05/02/21 05/02/21 03:58 04:29 04:45 Temperature 97.8 F Pulse Rate 72 Respiratory 18 22 21 Rate Blood Pressure Blood Pressure 152/70 [Right] O2 Sat by Pulse 99 99 Oximetry 05/02/21 05/02/21 05:01 05:12 Temperature Pulse Rate 75 74 Respiratory Rate Blood Pressure 147/70 147/70 Blood Pressure [Right] O2 Sat by Pulse 97 Oximetry - Consultations Consultation #1: 05/02/21 05:25 I spoke to the money room supervisor on-call, Dr. Hernandez, he will consult on the patient in regards to management of hemodialysis. MAYLIN score - Maylin Score Age > 65: (0) No Aspirin use within the Past 7 Days: (0) No 3 or more CAD Risk Factors: (1) Yes 2 or more Angina events in past 24 hrs: (1) Yes Known CAD with more than 50% Stenosis: (0) No Elevated Cardiac Markers: (0) No ST Deviation Greater than 0.5mm: (1) Yes MAYLIN Score: 3 ED Medical Decision Making - Lab Data Result diagrams: 05/02/21 04:19 05/02/21 04:19 Lab Results 05/02/21 05/02/21 Range/Units 04:19 04:19 WBC 9.4 (4.5-11.0) K/mm3 RBC 3.35 L (3.65-5.03) M/mm3 Hgb 10.5 (10.1-14.3) gm/dl Hct 33.1 (30.3-42.9) % MCV 99 H (79-97) fl MCH 31 (28-32) pg MCHC 32 (30-34) % RDW 15.1 (13.2-15.2) % Plt Count 203 (140-440) K/mm3 Lymph % (Auto) 3.2 L (13.4-35.0) % [place] % (Auto) 9.2 H (0.0-7.3) % Eos % (Auto) 0.0 (0.0-4.3) % Baso % (Auto) 0.2 (0.0-1.8) % Lymph # (Auto) 0.3 L (1.2-5.4) K/mm3 [place] # (Auto) 0.9 H (0.0-0.8) K/mm3 Eos # (Auto) 0.0 (0.0-0.4) K/mm3 Baso # (Auto) 0.0 (0.0-0.1) K/mm3 Seg Neutrophils % 87.4 H (40.0-70.0) % Seg Neutrophils # 8.2 H (1.8-7.7) K/mm3 Sodium 131 L (137-145) mmol/L Potassium 5.5 H (3.6-5.0) mmol/L Chloride 89.8 L (98-107) mmol/L Carbon Dioxide 28 (22-30) mmol/L Anion Gap 19 mmol/L BUN 54 H (7-17) mg/dL Creatinine 8.2 H (0.6-1.2) mg/dL Estimated GFR 6 ml/min BUN/Creatinine Ratio 7 % Glucose 282 H (65-100) mg/dL Calcium 9.6 (8.4-10.2) mg/dL Troponin T 0.086 H D (0.00-0.029) ng/mL - EKG Data -: EKG Interpreted by [facility] EKG shows normal: sinus rhythm (PACs), axis (Left axis deviation), intervals, QRS complexes (LVH), ST-T waves (There are some mild ST depression to aVR) Rate: normal - EKG Data When compared to previous EKG there are: no significant change Interpretation: unchanged when compared t (05/01/21) - Radiology Data Radiology results: image reviewed interpreted by me: Chest x-ray shows pulmonary vascular congestion and some mild interstitial edema. No obvious pneumonia. No widened mediastinum. No pneumothorax. - Medical Decision Making This patient woke up this evening from sleep with substernal chest pain. EMS initially had concern for possible STEMI but it was run by the business analyst ecommerce who agrees that it does not appear consistent with STEMI and no [employer] activation necessary. EKG done upon arrival here was similar to EMS EKG and once again does not show pathology consistent with ST elevation myocardial infarction. Chest x-ray shows mild volume overload, but no pneumonia, pneumothorax or widened mediastinum. The patient received nitro in route with EMS. She was given morphine and then another sublingual nitroglycerin. Mild hypokalemia with a potassium level of 5.5. The first troponin is elevated at 0.086. Nephrology has been contacted and consulted for management of hemodialysis. The patient has a moderate heart and MAYLIN score. She says that she has not had a stress test previously. She will be admitted to the hospital for further evaluation and treatment and was accepted for admission by the hospitalist, Dr. Sanders. Critical Care Time: No Critical care attestation.: If time is entered above; I have spent that time in minutes in the direct care of this critically ill patient, excluding procedure time. ED Disposition Clinical Impression: ESRD needing dialysis, Unstable angina, Hyperkalemia Hypertension Qualifiers: Hypertension type: primary hypertension Qualified Code(s): I10 - Essential (primary) hypertension Disposition: ADMITTED INPATIENT Is pt being admited?: Yes Condition: Serious Instructions: Hypertension (ED) Time of Disposition: 05:26
[2021-05-02] MEDS ORDERED: SIMETHICONE 80 MG CHEW TAB PO ONE (04:26)
[2021-05-02 04:44] LABS: Basophils % (Auto) 0.2 % (0.0-1.8); Hematocrit 33.1 % (30.3-42.9); Hemoglobin 10.5 gm/dl (10.1-14.3); Lymphocytes # (Auto) 0.3 K/mm3 (1.2-5.4); Lymphocytes % (Auto) 3.2 % (13.4-35.0); Mean Corpuscular HGB Conc 32 % (30-34); Mean Corpuscular Volume 99 fl (79-97); Monocytes # (Auto) 0.9 K/mm3 (0.0-0.8); Monocytes % (Auto) 9.2 % (0.0-7.3); Platelet Count 203 K/mm3 (140-440); Red Blood Count 3.35 M/mm3 (3.65-5.03); Red Cell Distribution Width 15.1 % (13.2-15.2)
--- NOTE | 2021-05-02 04:46 | XRay Report ---
XR chest 1V ap INDICATION / CLINICAL INFORMATION: CP. COMPARISON: Radiograph from yesterday. FINDINGS: SUPPORT DEVICES: None. HEART /PULMONARY VASCULATURE: Mild increased congestive changes. LUNGS / PLEURA: Increased faint pulmonary opacities in the right mid and lower lung. No pneumothorax. IMPRESSION: Suggestion of mild CHF with faint pulmonary opacities in the right lung, favored to reflect interstit ial edema Signer Name: Joaquin Lara MD Signed: 05/02/2021 4:42 AM Workstation Name: [id number]
[2021-05-02 05:04] LABS: Calcium 9.6 mg/dL (8.4-10.2)
[2021-05-02] MEDS ORDERED: NITROGLYCERIN 0.4 MG TAB SUBL SL ONE (05:09)
[2021-05-02] MEDS ORDERED: SODIUM POLYSTYRENE 15 GM/60 ML ORAL LIQD PO ONE ×2 (05:28→06:18)
[2021-05-02] MEDS ORDERED: NITROGLYCERIN 0.4 MG TAB SUBL SL PRN (05:59)
[2021-05-02] MEDS ORDERED: traMADol 50 MG TAB PO PRN (05:59)
[2021-05-02] MEDS ORDERED: ACETAMINOPHEN 325 MG TAB PO PRN (05:59)
[2021-05-02] MEDS ORDERED: SIMETHICONE 80 MG CHEW TAB PO PRN (06:03)
[2021-05-02] MEDS ORDERED: DEXTROSE 50% IN WATER (25GM) 50 ML SYRINGE IV PRN (06:04)
--- NOTE | 2021-05-02 06:13 | History and Physical Report ---
History of Present Illness Date of examination: 05/02/21 Date of admission: 05/02/21 Chief complaint: Chest pain History of present illness: 65-year-old -Iranian female with history of hypertension, diabetes, and end-stage renal disease was on hemodialysis on Saturday//Saturday. of sharp substernal chest pain that woke her from sleep a few hours ago. This patient was seen here for the same symptoms yesterday, 05/01. The patient was admitted to the hospitalist service and was discharged home yesterday afternoon after having downtrending troponins and getting relief of her chest discomfort. Her meal cooker is Dr. Lama. Patient had an echocardiogram done in March showing only mild diastolic dysfunction with an EF of about 50%. The patient says that she has never had a stress test done. Currently the patient says that the chest pain is 9 out of 10 in intensity. No known aggravating or alleviating factors. EMS initially called in this patient as a possible STEMI alert. EKG was sent over to the vice president media relations on-call, Dr. Angela, who did not feel that the EKG had a morphology consistent with ST elevation [place]. STEMI activation was canceled. Initial troponin is 0.086, BUN 54 creatinine 8.2 so going to admit the patient will consult nephrology for hemodialysis we also consult sales porter for evaluation Past History Past Medical History: diabetes, ESRD, hypertension, renal failure Medications and Allergies Allergies Allergy/AdvReac Type Severity Reaction Status Date / Time No Known Allergies Allergy Verified 05/01/21 05:40 Home Medications Medication Instructions Recorded Confirmed Last Taken Type Albuterol Mdi (or & Nicu Only) 2 puff IH QID PRN 03/23/21 05/01/21 03/22/21 History [ProAir HFA Inhaler] Aspirin EC [Halfprin EC] 81 mg PO QDAY 03/23/21 05/01/21 03/22/21 History AtorvaSTATin [Lipitor] 20 mg PO QHS 03/23/21 05/01/21 03/21/21 History Calcium Acetate [Phoslo] 667 mg PO TID 03/23/21 05/01/21 03/22/21 History Clopidogrel [Plavix] 75 mg PO QDAY 03/23/21 05/01/21 03/22/21 History Hydralazine HCl 100 mg PO TID 03/23/21 05/01/21 03/22/21 History Insulin Glargine,Hum.rec.anlog 22 unit SQ QHS 03/23/21 05/01/21 03/21/21 History [Lantus Solostar] Insulin Lispro [Humalog 100 3 units SQ TIDAC 03/23/21 05/01/21 03/22/21 History UNITS/ML Kwikpen] NIFEdipine [Nifedipine ER] 60 mg PO BID 03/23/21 05/01/21 03/22/21 History carvediloL [Coreg] 12.5 mg PO BID 03/23/21 05/01/21 03/22/21 History cloNIDine-TTS PATCH [Catapres-Tts 1 patch TD Q7D 03/23/21 05/01/21 03/20/21 History 0.3mg Patch] lisinopriL [Lisinopril] 20 mg PO QDAY 03/23/21 05/01/21 03/22/21 History oxyCODONE /ACETAMINOPHEN [Percocet 1 tab PO BID 03/23/21 05/01/21 03/22/21 History 5/325 mg] Simethicone [Gas Relief] 80 mg PO Q6H PRN 5 Days #20 05/01/21 Unknown Rx tab.chew Active Meds: Active Medications Acetaminophen (Acetaminophen 325 Mg Tab) 650 mg PO Q6H PRN PRN Reason: Pain, Mild (1-3) Aspirin (Aspirin Ec 325 Mg Tab) 325 mg PO QDAY [facility] Atorvastatin Calcium (Atorvastatin 40 Mg Tab) 40 mg PO QHS [facility] Calcium Acetate (Calcium Acetate 667 Mg Cap) 667 mg PO TID [facility] Carvedilol (Carvedilol 25 Mg Tab) 12.5 mg PO BID [facility] Clonidine HCl (Clonidine Tts 0.3 Mg/24 Hr Patch) 0.3 mg TD Q7D [facility] Clopidogrel Bisulfate (Clopidogrel 75 Mg Tab) 75 mg PO QDAY [facility] Heparin Sodium (Porcine) (Heparin 5,000 Unit/1 Ml Vial) 5,000 unit SUB-Q Q8HR [facility] Morphine Sulfate (Morphine 4 Mg/1 Ml Inj) 2 mg IV Q5MIN PRN PRN Reason: Chest Pain unrelieved by NTG Nitroglycerin (Nitroglycerin 0.4 Mg Tab Subl) 0.4 mg SL Q5M PRN PRN Reason: Chest Pain Pantoprazole Sodium (Pantoprazole 40 Mg Tab) 40 mg PO QDAY [facility] Sodium Chloride (Sodium Chloride 0.9% 10 Ml Flush Syringe) 10 ml IV PRN PRN PRN Reason: LINE FLUSH Tramadol HCl (Tramadol 50 Mg Tab) 50 mg PO Q6H PRN PRN Reason: Pain, Moderate (4-6) Review of Systems All systems: negative Cardiovascular: chest pain, shortness of breath Respiratory: shortness of breath Exam - Constitutional Vitals: Temp Pulse Resp BP Pulse Ox 97.8 F 75 20 135/70 95 05/02/21 04:29 05/02/21 05:31 05/02/21 05:31 05/02/21 05:31 05/02/21 05:31 General appearance: Present: no acute distress, well-nourished - EENT Eyes: Present: PERRL ENT: hearing intact, clear oral mucosa - Neck Neck: Present: supple, normal ROM - Respiratory Respiratory effort: normal Respiratory: bilateral: diminished - Cardiovascular Heart Sounds: Present: S1 & S2. Absent: rub, click - Extremities Extremities: pulses symmetrical, No edema Peripheral Pulses: within normal limits - Abdominal General gastrointestinal: Present: soft, non-tender, non-distended, normal bowel sounds Female genitourinary: Present: normal - Integumentary Integumentary: Present: clear, warm, dry - Musculoskeletal Musculoskeletal: gait normal, strength equal bilaterally - Psychiatric Psychiatric: appropriate mood/affect, intact judgment & insight - Neurologic Neurologic: CNII-XII intact, moves all extremities HEART Score - HEART Score EKG: Non-specific Age: 45-65 Risk factors: 1-2 risk factors Troponin: Troponin T 0.086 ng/mL (0.00-0.029) H D 05/02/21 04:19 Troponin: 1-3x normal limit - Critical Actions Critical Actions: 4-6 pts:12-16.6% risk of adverse cardiac event. Should be admitted Results - Labs CBC & Chem 7: 05/02/21 04:19 05/02/21 04:19 Labs: Laboratory Last Values WBC 9.4 K/mm3 (4.5-11.0) 05/02/21 04:19 RBC 3.35 M/mm3 (3.65-5.03) L 05/02/21 04:19 Hgb 10.5 gm/dl (10.1-14.3) 05/02/21 04:19 Hct 33.1 % (30.3-42.9) 05/02/21 04:19 MCV 99 fl (79-97) H 05/02/21 04:19 MCH 31 pg (28-32) 05/02/21 04:19 MCHC 32 % (30-34) 05/02/21 04:19 RDW 15.1 % (13.2-15.2) 05/02/21 04:19 Plt Count 203 K/mm3 (140-440) 05/02/21 04:19 Lymph % (Auto) 3.2 % (13.4-35.0) L 05/02/21 04:19 [place] % (Auto) 9.2 % (0.0-7.3) H 05/02/21 04:19 Eos % (Auto) 0.0 % (0.0-4.3) 05/02/21 04:19 Baso % (Auto) 0.2 % (0.0-1.8) 05/02/21 04:19 Lymph # (Auto) 0.3 K/mm3 (1.2-5.4) L 05/02/21 04:19 [place] # (Auto) 0.9 K/mm3 (0.0-0.8) H 05/02/21 04:19 Eos # (Auto) 0.0 K/mm3 (0.0-0.4) 05/02/21 04:19 Baso # (Auto) 0.0 K/mm3 (0.0-0.1) 05/02/21 04:19 Seg Neutrophils % 87.4 % (40.0-70.0) H 05/02/21 04:19 Seg Neutrophils # 8.2 K/mm3 (1.8-7.7) H 05/02/21 04:19 Sodium 131 mmol/L (137-145) L 05/02/21 04:19 Potassium 5.5 mmol/L (3.6-5.0) H 05/02/21 04:19 Chloride 89.8 mmol/L (98-107) L 05/02/21 04:19 Carbon Dioxide 28 mmol/L (22-30) 05/02/21 04:19 Anion Gap 19 mmol/L 05/02/21 04:19 BUN 54 mg/dL (7-17) H 05/02/21 04:19 Creatinine 8.2 mg/dL (0.6-1.2) H 05/02/21 04:19 Estimated GFR 6 ml/min 05/02/21 04:19 BUN/Creatinine Ratio 7 % 05/02/21 04:19 Glucose 282 mg/dL (65-100) H 05/02/21 04:19 Calcium 9.6 mg/dL (8.4-10.2) 05/02/21 04:19 Troponin T 0.086 ng/mL (0.00-0.029) H D 05/02/21 04:19 - Imaging and Cardiology Chest x-ray: report reviewed Assessment and Plan VTE prophylaxis?: Chemical Plan of care discussed with patient/family: Yes - Patient Problems (1) ACS (acute coronary syndrome) Current Visit: Yes Status: Acute Plan to address problem: Admit the patient to the medical telemetry. Aspirin 81 mg p.o. daily. Plavix 75 mg p.o. daily. Lipitor 40 mg p.o. daily. Nitroglycerin as needed. We do the serial cardiac enzyme. We also do echocardiogram and consult cardiology for evaluation (2) ESRD needing dialysis Current Visit: Yes Status: Acute Plan to address problem: Patient has end-stage renal disease on hemodialysis Saturday, and Saturday. Will consult meal cooker for hemodialysis. Recheck BMP in the morning (3) Hyperkalemia Current Visit: Yes Status: Acute Plan to address problem: We will consult meal cooker for hemodialysis. Kayexalate 30 g p.o. x1 dose. Calcium gluconate 1 g IV x1 dose (4) Hypertension Current Visit: Yes Status: Acute Qualifiers: Hypertension type: primary hypertension Qualified Code(s): I10 - Essential (primary) hypertension Plan to address problem: Nifedipine 60 mg p.o. twice daily. Coreg 12.5 mg p.o. twice daily hydralazine 100 mg p.o. 3 times daily. We will monitor the blood pressure closely (5) Diabetes Current Visit: No Status: Acute Plan to address problem: We will put the patient on Humalog sliding scale Accu-Chek before meals and at bedtime with moderate dose coverage. Insulin glargine 22 units subcu nightly. Diabetic education (6) DVT prophylaxis Current Visit: No Status: Acute Plan to address problem: Heparin 5000 units subcu every every 8 hours for DVT prophylaxis. Pepcid 20 mg p.o. twice daily for GI prophylaxis. Patient is a full code
[2021-05-02] MEDS ORDERED: CALCIUM GLUCONATE 1,000 MG in SODIUM CHLORIDE 0.9% 100 ML IV ONE ×2 (06:18→10:00)
[2021-05-02] MEDS ORDERED: SODIUM CHLORIDE 0.9% 100 ML IV PRN (06:22)
[2021-05-02] MEDS ORDERED: MORPHINE 2 MG/1 ML INJ ONE (06:59)
[2021-05-02] MEDS: MORPHINE 4 MG/1 ML INJ IV PRN ×3 (07:03→23:50)
--- NOTE | 2021-05-02 07:43 | Consultation ---
History of Present Illness - Reason for Consult Consult date: 05/02/21 end stage renal disease, hyperkalemia Requesting physician: CHRISTIAN LOMELI - History of Present Illness 65-year-old male with a history of diabetes mellitus, hypertension complicated by end-stage renal disease on hemodialysis Saturday, and Saturday schedule at [facility] dialysis team flatrajan and [facility] tomorrow Dr. Nikhil Dooley. Patient has been on dialysis for 3 years now. She still makes urine. She went for her regular dialysis on Saturday with no complications. Patient developed chest pain yesterday and came to the emergency room. She was treated with resolution of the pain after she was given morphine and presumably nitroglycerin. Troponin was also trending down and so patient was discharged home. Last night, she developed the chest pain again. It awakened her. It is a sharp substernal pain which she rates at a 9/10 and is unresolved with morphine. Patient denies any shortness of breath. "When I breathe it hurts". No nausea or vomiting. No dizziness or diaphoresis. She has no known history of coronary disease. She has not had a stress test or cardiac catheterization in the past. Past History Past Medical History: diabetes, ESRD, hypertension, renal failure, other (Small bowel cancer) Past Surgical History: Other (Laparotomy and excision of small bowel for mass which turned out to be cancer. 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 denies: smoking, alcohol abuse, prescription drug abuse, IV drug use Family history: CAD (Brother has coronary disease and has had heart attacks. Her daughter had a myocardial infarction at age 41.), diabetes (Mother was diabetic and brother has type II diabetes), hypertension (Mother and brother), stroke (Mother had 4 strokes and ), other (Father was murdered.) Medications and Allergies Allergies Allergy/AdvReac Type Severity Reaction Status Date / Time No Known Allergies Allergy Verified 05/01/21 05:40 Home Medications Medication Instructions Recorded Confirmed Last Taken Type Albuterol Mdi (or & Nicu Only) 2 puff IH QID PRN 03/23/21 05/02/21 03/22/21 History [ProAir HFA Inhaler] Aspirin EC [Halfprin EC] 81 mg PO QDAY 03/23/21 05/02/21 04/30/21 09:00 History AtorvaSTATin [Lipitor] 20 mg PO QHS 03/23/21 05/02/21 04/30/21 21:00 History Calcium Acetate [Phoslo] 667 mg PO TID 03/23/21 05/02/21 05/01/21 09:00 History Clopidogrel [Plavix] 75 mg PO QDAY 03/23/21 05/02/21 05/01/21 09:00 History Hydralazine HCl 100 mg PO TID 03/23/21 05/02/21 05/01/21 09:00 History Insulin Glargine,Hum.rec.anlog 22 unit SQ QHS 03/23/21 05/02/21 04/30/21 21:00 History [Lantus Solostar] Insulin Lispro [Humalog 100 3 units SQ TIDAC 03/23/21 05/02/21 05/01/21 09:00 History UNITS/ML Kwikpen] NIFEdipine [Nifedipine ER] 60 mg PO BID 03/23/21 05/02/21 05/01/21 09:00 History carvediloL [Coreg] 12.5 mg PO BID 03/23/21 05/02/21 05/01/21 09:00 History cloNIDine-TTS PATCH [Catapres-Tts 1 patch TD Q7D 03/23/21 05/02/21 05/01/21 08:00 History 0.3mg Patch] lisinopriL [Lisinopril] 20 mg PO QDAY 03/23/21 05/02/21 05/01/21 08:00 History oxyCODONE /ACETAMINOPHEN [Percocet 1 tab PO BID 03/23/21 05/01/21 05/01/21 09:00 History 5/325 mg] Simethicone [Gas Relief] 80 mg PO Q6H PRN 5 Days #20 05/01/21 05/02/21 Unknown Rx tab.chew LORazepam [Lorazepam] 0.5 mg PO DAILY 05/02/21 05/02/21 05/01/21 08:00 History Active Meds: Active Medications Acetaminophen (Acetaminophen 325 Mg Tab) 650 mg PO Q6H PRN PRN Reason: Pain, Mild (1-3) Aspirin (Aspirin Ec 81 Mg Tab) 81 mg PO QDAY [facility] Atorvastatin Calcium (Atorvastatin 40 Mg Tab) 40 mg PO QHS [facility] Calcium Acetate (Calcium Acetate 667 Mg Cap) 1,334 mg PO TID [facility] Carvedilol (Carvedilol 12.5 Mg Tab) 12.5 mg PO BID [facility] Clonidine HCl (Clonidine Tts 0.3 Mg/24 Hr Patch) 0.3 mg TD Tu [facility] Clopidogrel Bisulfate (Clopidogrel 75 Mg Tab) 75 mg PO QDAY [facility] Dextrose (Dextrose 50% In Water (25gm) 50 Ml Syringe) 50 ml IV Q30MIN PRN; Protocol PRN Reason: Hypoglycemia Heparin Sodium (Porcine) (Heparin 5,000 Unit/1 Ml Vial) 5,000 unit SUB-Q Q8HR [facility] Hydralazine HCl (Hydralazine 100 Mg Tab) 100 mg PO TID [facility] Sodium Chloride (Nacl 0.9%) 100 mls @ 999 mls/hr IV JASS PRN PRN Reason: Hypotension Insulin Glargine (Insulin Glargine 100 Units/Ml) 22 units SUB-Q QHS [facility] Insulin Human Lispro (Insulin Lispro 100 Unit/Ml) 0 unit SUB-Q Q6HR [facility]; Protocol Lisinopril (Lisinopril 20 Mg Tab) 20 mg PO QDAY [facility] Morphine Sulfate (Morphine 4 Mg/1 Ml Inj) 2 mg IV Q5MIN PRN PRN Reason: Chest Pain unrelieved by NTG Last Admin: 05/02/21 07:03 Dose: 2 mg Documented by: Nifedipine (Nifedipine Xl 60 Mg Tab) 60 mg PO BID [facility] Nitroglycerin (Nitroglycerin 0.4 Mg Tab Subl) 0.4 mg SL Q5M PRN PRN Reason: Chest Pain Pantoprazole Sodium (Pantoprazole 40 Mg Tab) 40 mg PO QDAC [facility] Simethicone (Simethicone 80 Mg Chew Tab) 80 mg PO Q6H PRN PRN Reason: Gas pain Sodium Chloride (Sodium Chloride 0.9% 10 Ml Flush Syringe) 10 ml IV PRN PRN PRN Reason: LINE FLUSH Tramadol HCl (Tramadol 50 Mg Tab) 50 mg PO Q6H PRN PRN Reason: Pain, Moderate (4-6) Review of Systems All systems: negative (Constitutional: no fever or chills. No anorexia or weight loss. HEENT: No sore throat or sinus drainage no hearing or vision impairment . Cardiovascular: Admits to chest pain. No SOB, palpitations, lower extremity swelling or dizziness. Respiratory: No cough, sputum, shortness of breath, he mo) Gastrointestinal: no abdominal pain, no nausea, no vomiting, no diarrhea, no constipation, no coffee ground emesis, no melena Genitourinary Female: no urinary frequency, no urgency, no nocturia Musculoskeletal: no low back pain, no hot joints Integumentary: no rash, no pruritis Neurological: no weakness, no numbness, no tingling, no seizures, no headaches Psychiatric: anxiety, no depression Endocrine: no cold intolerance, no heat intolerance Hematologic/Lymphatic: easy bruising, no easy bleeding Exam - Vital Signs Vital signs: Vital Signs Resp Pulse Ox 18 99 05/02/21 03:58 05/02/21 03:58 - Physical Exam Narrative exam: Elderly -Dominican female lying in bed in no acute distress HEENT: NCAT, Neck: Supple, no venous distention CVS: S1S2 RRR with no murmur, rub or gallop Chest: Clear to auscultation Abdomen: Protuberant, soft, nontender, no organomegaly, bowel sounds are present Extremities: No edema, left upper extremity AV fistula Genitourinary deferred Skin warm and dry Neuro: Awake, alert no focal deficits Results - Lab Results 05/02/21 04:19 05/02/21 04:19 Most recent lab results Calcium 9.6 mg/dL (8.4-10.2) 05/02/21 04:19 Assessment and Plan - Patient Problems (1) Hyperkalemia Current Visit: Yes Status: Acute Plan to address problem: Hyperkalemia in a dialysis patient. Will need dialysis today once chest pain is addressed. (2) Hyponatremia Current Visit: Yes Status: Acute Plan to address problem: Hypervolemic hyponatremia. Hemodialysis for fluid removal once chest pain is resolved (3) Chest pain Current Visit: Yes Status: Acute Plan to address problem: Chest pain with known coronary artery disease but with multiple cardiac risk factors. Balloon Tester has been consulted. (4) ESRD needing dialysis Current Visit: Yes Status: Acute Plan to address problem: Chest x-ray showed pulmonary vascular congestion and mild interstitial edema. Hemodialysis today for fluid removal and solute clearance. (5) Hypertensive chronic kidney disease with stage 5 chronic kidney disease or end stage renal disease Current Visit: Yes Status: Acute Plan to address problem: Follow-up blood pressure on current medications (6) Anemia in end-stage renal disease Current Visit: Yes Status: Acute Plan to address problem: Give erythropoietin on dialysis (7) Type 2 diabetes mellitus with diabetic chronic kidney disease Current Visit: Yes Status: Acute Plan to address problem: Blood sugar management by primary attending
[2021-05-02] MEDS ORDERED: LORazepam 2 MG/ML VIAL IV ONE (08:20)
[2021-05-02 08:36] LABS: Basophils # (Auto) 0.1 K/mm3 (0.0-0.1); Eosinophils % (Auto) 0.1 % (0.0-4.3); Hematocrit 32.2 % (30.3-42.9); Hemoglobin 10.2 gm/dl (10.1-14.3); Mean Corpuscular HGB Conc 32 % (30-34); Mean Corpuscular Volume 97 fl (79-97); Monocytes # (Auto) 0.8 K/mm3 (0.0-0.8); Platelet Count 183 K/mm3 (140-440); Red Blood Count 3.32 M/mm3 (3.65-5.03); Red Cell Distribution Width 15.2 % (13.2-15.2)
[2021-05-02 08:53] LABS: Calcium 9.5 mg/dL (8.4-10.2)
[2021-05-02] MEDS ORDERED: INSULIN REGULAR, HUMAN 100 UNITS/1 ML SUB-Q ONE (09:22)
[2021-05-02] MEDS ORDERED: DEXTROSE 50% IN WATER (25GM) 50 ML SYRINGE IV ONE (09:22)
[2021-05-02] MEDS ORDERED: SODIUM BICARB 8.4% 50 MEQ/50 ML SYRINGE IV ONE (09:24)
[2021-05-02] MEDS ORDERED: cloNIDine TTS 0.3 MG/24 HR PATCH TD SCH (10:00)
--- NOTE | 2021-05-02 10:25 | Electrocardiograph Report ---
[facility] Test Date: 2021-05-02 Test Time: 03:58:53 Pat Name: LINDSAY ROTH Department: Room: [facility] Gender: F Hearing Screener: BLAKE : 1955 Requested By: CHRISTIAN LOMELI Order Number: [id number] Reading MD: Edgardo Elizondo Measurements Intervals [place] Rate: 77 P: 39 [place]: 153 QRS: -15 QRSD: 90 T: 76 QT: 386 QTc: 423 Interpretive Statements Sinus rhythm Atrial premature complexes in couplets Probable left ventricular hypertrophy nonspecific st-t Compared to ECG 05/01/2021 05:43:04 Atrial premature complex(es) now present Electronically Signed On 05-02-2021 10:25:11 EST by Edgardo Elizondo
[2021-05-02] MEDS: hydrALAZINE 100 MG TAB PO SCH ×2 (10:46→14:22)
[2021-05-02] MEDS: ASPIRIN EC 81 MG TAB PO SCH (10:46)
[2021-05-02] MEDS: LISINOPRIL 20 MG TAB PO SCH (10:46)
[2021-05-02] MEDS: CLOPIDOGREL 75 MG TAB PO SCH (10:47)
[2021-05-02] MEDS: PANTOPRAZOLE 40 MG TAB PO SCH (10:47)
[2021-05-02] MEDS: CALCIUM ACETATE 667 MG CAP PO SCH ×2 (11:17→14:22)
[2021-05-02] MEDS: carvediloL 12.5 MG TAB PO SCH (11:17)
[2021-05-02] MEDS: NIFEdipine XL 60 MG TAB PO SCH (11:18)
--- NOTE | 2021-05-02 11:48 | Consultation ---
History of Present Illness Consult date: 05/02/21 Consult reason: chest pain History of present illness: The patient is a 65-year-old woman with end-stage renal disease on hemodialysis and chronic hypertension. No prior cardiac history. She presented to the emergency room with chest pain. She describes 2 to 3 days of anterior chest pain which is aggravated by movements of the thorax, and palpation over the anterior chest. There is no shortness of breath, there is no exertional angina, there are no palpitations. Work-up in the hospital so far serial ECGs show a normal sinus rhythm with no ischemic changes, normal ECG. The serial troponin measurements are mildly elevated at 0.08, but unchanged on 5 serial measurements. Chest x-ray shows a normal-sized cardiac silhouette and clear lungs. Last month, in this hospital she underwent an echocardiogram that reported normal left ventricular systolic function with ejection fraction 55 to 60%. Past History Past Medical History: diabetes, ESRD, hypertension, other (Small bowel cancer) Past Surgical History: Other (Laparotomy and excision of small bowel for mass which turned out to be cancer. 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 denies: smoking, alcohol abuse, prescription drug abuse, IV drug use Family history: CAD (Brother has coronary disease and has had heart attacks. Her daughter had a myocardial infarction at age 41.), diabetes (Mother was diabetic and brother has type II diabetes), hypertension (Mother and brother), stroke (Mother had 4 strokes and ), other (Father was murdered.) Medications and Allergies Allergies Allergy/AdvReac Type Severity Reaction Status Date / Time No Known Allergies Allergy Verified 05/01/21 05:40 Home Medications Medication Instructions Recorded Confirmed Last Taken Type Albuterol Mdi (or & Nicu Only) 2 puff IH QID PRN 03/23/21 05/02/21 03/22/21 History [ProAir HFA Inhaler] Aspirin EC [Halfprin EC] 81 mg PO QDAY 03/23/21 05/02/21 04/30/21 09:00 History AtorvaSTATin [Lipitor] 20 mg PO QHS 03/23/21 05/02/21 04/30/21 21:00 History Calcium Acetate [Phoslo] 667 mg PO TID 03/23/21 05/02/21 05/01/21 09:00 History Clopidogrel [Plavix] 75 mg PO QDAY 03/23/21 05/02/21 05/01/21 09:00 History Hydralazine HCl 100 mg PO TID 03/23/21 05/02/21 05/01/21 09:00 History Insulin Glargine,Hum.rec.anlog 22 unit SQ QHS 03/23/21 05/02/21 04/30/21 21:00 History [Lantus Solostar] Insulin Lispro [Humalog 100 3 units SQ TIDAC 03/23/21 05/02/21 05/01/21 09:00 History UNITS/ML Kwikpen] NIFEdipine [Nifedipine ER] 60 mg PO BID 03/23/21 05/02/21 05/01/21 09:00 History carvediloL [Coreg] 12.5 mg PO BID 03/23/21 05/02/21 05/01/21 09:00 History cloNIDine-TTS PATCH [Catapres-Tts 1 patch TD Q7D 03/23/21 05/02/21 05/01/21 08:00 History 0.3mg Patch] lisinopriL [Lisinopril] 20 mg PO QDAY 03/23/21 05/02/21 05/01/21 08:00 History oxyCODONE /ACETAMINOPHEN [Percocet 1 tab PO BID 03/23/21 05/01/21 05/01/21 09:00 History 5/325 mg] Simethicone [Gas Relief] 80 mg PO Q6H PRN 5 Days #20 05/01/21 05/02/21 Unknown Rx tab.chew LORazepam [Lorazepam] 0.5 mg PO DAILY 05/02/21 05/02/21 05/01/21 08:00 History Active Meds: Active Medications Acetaminophen (Acetaminophen 325 Mg Tab) 650 mg PO Q6H PRN PRN Reason: Pain, Mild (1-3) Aspirin (Aspirin Ec 81 Mg Tab) 81 mg PO QDAY ON LICENSE OF [facility] Last Admin: 05/02/21 10:46 Dose: 81 mg Documented by: Atorvastatin Calcium (Atorvastatin 40 Mg Tab) 40 mg PO QHS ON LICENSE OF [facility] Calcium Acetate (Calcium Acetate 667 Mg Cap) 1,334 mg PO TID ON LICENSE OF [facility] Last Admin: 05/02/21 11:17 Dose: Not Given Documented by: Carvedilol (Carvedilol 12.5 Mg Tab) 12.5 mg PO BID ON LICENSE OF [facility] Last Admin: 05/02/21 11:17 Dose: Not Given Documented by: Clonidine HCl (Clonidine Tts 0.3 Mg/24 Hr Patch) 0.3 mg TD Tu ON LICENSE OF [facility] Last Admin: 05/02/21 10:47 Dose: 0.3 mg Documented by: Clopidogrel Bisulfate (Clopidogrel 75 Mg Tab) 75 mg PO QDAY ON LICENSE OF [facility] Last Admin: 05/02/21 10:47 Dose: 75 mg Documented by: Dextrose (Dextrose 50% In Water (25gm) 50 Ml Syringe) 50 ml IV Q30MIN PRN; Protocol PRN Reason: Hypoglycemia Heparin Sodium (Porcine) (Heparin 5,000 Unit/1 Ml Vial) 5,000 unit SUB-Q Q8HR ON LICENSE OF [facility] Hydralazine HCl (Hydralazine 100 Mg Tab) 100 mg PO TID ON LICENSE OF [facility] Last Admin: 05/02/21 10:46 Dose: 100 mg Documented by: Sodium Chloride (Nacl 0.9%) 100 mls @ 999 mls/hr IV JASS PRN PRN Reason: Hypotension Insulin Glargine (Insulin Glargine 100 Units/Ml) 22 units SUB-Q QHS ON LICENSE OF [facility] Insulin Human Lispro (Insulin Lispro 100 Unit/Ml) 0 unit SUB-Q Q6HR ON LICENSE OF [facility]; Protocol Ketorolac Tromethamine (Ketorolac 30 Mg/1 Ml Inj) 15 mg IV Q6HR ON LICENSE OF [facility] Stop: 05/04/21 11:59 Lisinopril (Lisinopril 20 Mg Tab) 20 mg PO QDAY ON LICENSE OF [facility] Last Admin: 05/02/21 10:46 Dose: 20 mg Documented by: Morphine Sulfate (Morphine 4 Mg/1 Ml Inj) 2 mg IV Q5MIN PRN PRN Reason: Chest Pain unrelieved by NTG Last Admin: 05/02/21 07:03 Dose: 2 mg Documented by: Nifedipine (Nifedipine Xl 60 Mg Tab) 60 mg PO BID ON LICENSE OF [facility] Last Admin: 05/02/21 11:18 Dose: Not Given Documented by: Nitroglycerin (Nitroglycerin 0.4 Mg Tab Subl) 0.4 mg SL Q5M PRN PRN Reason: Chest Pain Pantoprazole Sodium (Pantoprazole 40 Mg Tab) 40 mg PO QDAC ON LICENSE OF [facility] Last Admin: 05/02/21 10:47 Dose: 40 mg Documented by: Simethicone (Simethicone 80 Mg Chew Tab) 80 mg PO Q6H PRN PRN Reason: Gas pain Sodium Chloride (Sodium Chloride 0.9% 10 Ml Flush Syringe) 10 ml IV PRN PRN PRN Reason: LINE FLUSH Tramadol HCl (Tramadol 50 Mg Tab) 50 mg PO Q6H PRN PRN Reason: Pain, Moderate (4-6) Review of Systems Cardiovascular: chest pain, no orthopnea, no palpitations, no rapid/irregular heart beat, no edema, no syncope, no lightheadedness, no shortness of breath Physical Examination Vital Signs Resp Pulse Ox 18 99 05/02/21 03:58 05/02/21 03:58 General appearance: no acute distress HEENT: Positive: PERRL Neck: Positive: neck supple Cardiac: Positive: Reg Rate and Rhythm Lungs: Positive: Decreased Breath Sounds Neuro: Positive: Grossly Intact Abdomen: Positive: Soft Female genitourinary: deferred Skin: Positive: Clear Extremities: Absent: edema Results 05/02/21 08:18 05/02/21 08:18 CBC 05/02/21 05/02/21 Range/Units 04:19 08:18 WBC 9.4 12.3 H (4.5-11.0) K/mm3 RBC 3.35 L 3.32 L (3.65-5.03) M/mm3 Hgb 10.5 10.2 (10.1-14.3) gm/dl Hct 33.1 32.2 (30.3-42.9) % Plt Count 203 183 (140-440) K/mm3 Lymph # (Auto) 0.3 L (1.2-5.4) K/mm3 [place] # (Auto) 0.9 H 0.8 (0.0-0.8) K/mm3 Eos # (Auto) 0.0 0.0 (0.0-0.4) K/mm3 Baso # (Auto) 0.0 0.1 (0.0-0.1) K/mm3 Comprehensive Metabolic Panel 05/02/21 05/02/21 Range/Units 04:19 08:18 Sodium 131 L 131 L (137-145) mmol/L Potassium 5.5 H 6.1 H* (3.6-5.0) mmol/L Chloride 89.8 L 91.8 L (98-107) mmol/L Carbon Dioxide 28 24 (22-30) mmol/L BUN 54 H 58 H (7-17) mg/dL Creatinine 8.2 H 8.4 H (0.6-1.2) mg/dL Glucose 282 H 328 H (65-100) mg/dL Calcium 9.6 9.5 (8.4-10.2) mg/dL EKG interpretations - Telemetry EKG Rhythm: Sinus Rhythm Assessment and Plan - Patient Problems (1) Atypical chest pain Current Visit: Yes Status: Acute Plan to address problem: Patient presents with atypical, musculoskeletal type chest pain. Serial ECGs are normal. Serial troponin levels are unremarkable, minimally elevated but unchanged on 5 serial measurements in the patient with end-stage renal disease. We will administer a trial of intravenous Toradol, dosed for renal failure. Further cardiac evaluation and management will depend on clinical course.
[2021-05-02] MEDS: INSULIN LISPRO 100 UNIT/ML SUB-Q SCH ×2 (12:22→18:35)
[2021-05-02 12:26] LABS: Monocytes % (Manual) 10 % (0.0-7.3)
[2021-05-02 12:27] LABS: Anisocytosis 1+; Large Platelets 1+; Platelet Estimate Consistent w Auto
[2021-05-02] MEDS: KETOROLAC 30 MG/1 ML INJ IV SCH ×2 (14:22→18:41)
[2021-05-02] MEDS: HEPARIN 5,000 UNIT/1 ML VIAL SUB-Q SCH (14:22)
[2021-05-02 14:53] LABS: Alanine Aminotransferase 11 units/L (7-56); Albumin 3.7 g/dL (3.9-5); Blood Urea Nitrogen 62 mg/dL (7-17); Calcium 9.7 mg/dL (8.4-10.2); Hemolysis Index 1
[2021-05-02 14:58] LABS: BUN/Creatinine Ratio 7
[2021-05-02 15:04] LABS: Hepatitis C Virus Antibody Non-Reactive (NonReactive)
[2021-05-02 15:09] LABS: Hepatitis B Surface Antigen Nonreactive (Negative)
--- NOTE | 2021-05-02 21:25 | Progress Note ---
Assessment and Plan Assessment and plan: 65-year-old -[place] female with history of hypertension, diabetes, and end-stage renal disease was on hemodialysis on Saturday//Saturday. of sharp substernal chest pain that woke her from sleep a few hours ago. This patient was seen here for the same symptoms yesterday, 05/01. The patient was admitted to the hospitalist service and was discharged home yesterday afternoon after having downtrending troponins and getting relief of her chest discomfort. Her tack picker is Dr. Lama. Patient had an echocardiogram done in March showing only mild diastolic dysfunction with an EF of about 50%. The patient says that she has never had a stress test done. Currently the patient says that the chest pain is 9 out of 10 in intensity. No known aggravating or alleviating factors. EMS initially called in this patient as a possible STEMI alert. EKG was sent over to the academic program specialist on-call, Dr. Angela, who did not feel that the EKG had a morphology consistent with ST elevation PA. STEMI activation was canceled. Initial troponin is 0.086, BUN 54 creatinine 8.2 so going to admit the patient will consult nephrology for hemodialysis we also consult property management specialist for evaluation (1) ACS (acute coronary syndrome) Current Visit: Yes Status: Acute Plan to address problem: Admit the patient to the medical telemetry. Aspirin 81 mg p.o. daily. Plavix 75 mg p.o. daily. Lipitor 40 mg p.o. daily. Nitroglycerin as needed. We do the serial cardiac enzyme. We also do echocardiogram and consult cardiology for evaluation (2) ESRD needing dialysis Current Visit: Yes Status: Acute Plan to address problem: Patient has end-stage renal disease on hemodialysis Saturday, and Saturday. Will consult tack picker for hemodialysis. Recheck BMP in the morning (3) Hyperkalemia Current Visit: Yes Status: Acute Plan to address problem: We will consult tack picker for hemodialysis. Kayexalate 30 g p.o. x1 dose. Calcium gluconate 1 g IV x1 dose (4) Hypertension Current Visit: Yes Status: Acute Qualifiers: Hypertension type: primary hypertension Qualified Code(s): I10 - Essential (primary) hypertension Plan to address problem: Nifedipine 60 mg p.o. twice daily. Coreg 12.5 mg p.o. twice daily hydralazine 100 mg p.o. 3 times daily. We will monitor the blood pressure closely (5) Diabetes Current Visit: No Status: Acute Plan to address problem: We will put the patient on Humalog sliding scale Accu-Chek before meals and at bedtime with moderate dose coverage. Insulin glargine 22 units subcu nightly. Diabetic education (6) DVT prophylaxis Current Visit: No Status: Acute Plan to address problem: Heparin 5000 units subcu every every 8 hours for DVT prophylaxis. Pepcid 20 mg p.o. twice daily for GI prophylaxis. Patient is a full code Hospitalist Physical - Constitutional Vitals: Temp Pulse Resp BP Pulse Ox 98.2 F 84 13 130/70 94 05/02/21 17:22 05/02/21 18:49 05/02/21 18:49 05/02/21 18:49 05/02/21 18:49 General appearance: Present: no acute distress HEART Score - HEART Score EKG: Non-specific Age: 45-65 Risk factors: 1-2 risk factors Troponin: Troponin T 0.075 ng/mL (0.00-0.029) H 05/02/21 14:07 Troponin: 1-3x normal limit - Critical Actions Critical Actions: 4-6 pts:12-16.6% risk of adverse cardiac event. Should be admitted Results - Labs CBC & Chem 7: 05/02/21 08:18 05/02/21 14:07 Labs: Laboratory Last Values WBC 12.3 K/mm3 (4.5-11.0) H 05/02/21 08:18 RBC 3.32 M/mm3 (3.65-5.03) L 05/02/21 08:18 Hgb 10.2 gm/dl (10.1-14.3) 05/02/21 08:18 Hct 32.2 % (30.3-42.9) 05/02/21 08:18 MCV 97 fl (79-97) 05/02/21 08:18 MCH 31 pg (28-32) 05/02/21 08:18 MCHC 32 % (30-34) 05/02/21 08:18 RDW 15.2 % (13.2-15.2) 05/02/21 08:18 Plt Count 183 K/mm3 (140-440) 05/02/21 08:18 Lymph % (Auto) 3.2 % (13.4-35.0) L 05/02/21 04:19 [place] % (Auto) Shoe Lay Out Planner 05/02/21 08:18 Eos % (Auto) 0.1 % (0.0-4.3) 05/02/21 08:18 Baso % (Auto) 0.2 % (0.0-1.8) 05/02/21 04:19 Lymph # (Auto) 0.3 K/mm3 (1.2-5.4) L 05/02/21 04:19 [place] # (Auto) 0.8 K/mm3 (0.0-0.8) 05/02/21 08:18 Eos # (Auto) 0.0 K/mm3 (0.0-0.4) 05/02/21 08:18 Baso # (Auto) 0.1 K/mm3 (0.0-0.1) 05/02/21 08:18 Add Manual Diff Complete 05/02/21 08:18 Seg Neutrophils % 87.4 % (40.0-70.0) H 05/02/21 04:19 Seg Neuts % (Manual) 91 % (40.0-70.0) H 05/02/21 08:18 Lymphocytes % (Manual) 2 % (13.4-35.0) L 05/02/21 08:18 Monocytes % (Manual) 10 % (0.0-7.3) H 05/02/21 08:18 Nucleated RBC % Not Reportable 05/02/21 08:18 Seg Neutrophils # 11.2 K/mm3 (1.8-7.7) H 05/02/21 08:18 Seg Neutrophils # Man 11.1 K/mm3 (1.8-7.7) H 05/02/21 08:18 Lymphocytes # (Manual) 0.2 K/mm3 (1.2-5.4) L 05/02/21 08:18 Monocytes # (Manual) 1.2 K/mm3 (0.0-0.8) H 05/02/21 08:18 WBC Morphology Not Reportable 05/02/21 08:18 Hypersegmented Neuts Not Reportable 05/02/21 08:18 Hyposegmented Neuts Not Reportable 05/02/21 08:18 Hypogranular Neuts Not Reportable 05/02/21 08:18 Smudge Cells Not Reportable 05/02/21 08:18 Toxic Granulation Not Reportable 05/02/21 08:18 Toxic Vacuolation Not Reportable 05/02/21 08:18 Dohle Bodies Not Reportable 05/02/21 08:18 Pelger-Huet Anomaly Not Reportable 05/02/21 08:18 Saleem Rods Not Reportable 05/02/21 08:18 Platelet Estimate Consistent w auto 05/02/21 08:18 Clumped Platelets Not Reportable 05/02/21 08:18 Plt Clumps, EDTA Not Reportable 05/02/21 08:18 Large Platelets 1+ 05/02/21 08:18 Giant Platelets Not Reportable 05/02/21 08:18 Platelet Satelliting Not Reportable 05/02/21 08:18 Plt Morphology Comment Not Reportable 05/02/21 08:18 RBC Morphology Not Reportable 05/02/21 08:18 Dimorphic RBCs Not Reportable 05/02/21 08:18 Polychromasia Not Reportable 05/02/21 08:18 Hypochromasia Not Reportable 05/02/21 08:18 Poikilocytosis Not Reportable 05/02/21 08:18 Anisocytosis 1+ 05/02/21 08:18 Microcytosis Not Reportable 05/02/21 08:18 Macrocytosis Not Reportable 05/02/21 08:18 Spherocytes Not Reportable 05/02/21 08:18 Pappenheimer Bodies Not Reportable 05/02/21 08:18 Sickle Cells Not Reportable 05/02/21 08:18 Target Cells Not Reportable 05/02/21 08:18 Tear Drop Cells Not Reportable 05/02/21 08:18 Ovalocytes Not Reportable 05/02/21 08:18 Helmet Cells Not Reportable 05/02/21 08:18 [place] Bodies Not Reportable 05/02/21 08:18 [place] Rings Not Reportable 05/02/21 08:18 Powers Cells Not Reportable 05/02/21 08:18 Bite Cells Not Reportable 05/02/21 08:18 Crenated Cell Not Reportable 05/02/21 08:18 Elliptocytes Not Reportable 05/02/21 08:18 Acanthocytes (Spur) 1+ 05/02/21 08:18 Rouleaux Not Reportable 05/02/21 08:18 Hemoglobin C Crystals Not Reportable 05/02/21 08:18 Schistocytes Not Reportable 05/02/21 08:18 Malaria parasites Not Reportable 05/02/21 08:18 Parker Bodies Not Reportable 05/02/21 08:18 Hem Pathologist Commnt No 05/02/21 08:18 Sodium 130 mmol/L (137-145) L 05/02/21 14:07 Potassium TNR 05/02/21 14:07 Chloride 93.1 mmol/L (98-107) L 05/02/21 14:07 Carbon Dioxide 25 mmol/L (22-30) 05/02/21 14:07 Anion Gap 18 mmol/L 05/02/21 14:07 BUN 62 mg/dL (7-17) H 05/02/21 14:07 Creatinine 8.7 mg/dL (0.6-1.2) H 05/02/21 14:07 Estimated GFR 6 ml/min 05/02/21 14:07 BUN/Creatinine Ratio 7 % 05/02/21 14:07 Glucose 386 mg/dL (65-100) H 05/02/21 14:07 POC Glucose 161 mg/dL (70-105) H 05/02/21 18:31 Calcium 9.7 mg/dL (8.4-10.2) 05/02/21 14:07 Total Bilirubin 0.40 mg/dL (0.1-1.2) 05/02/21 14:07 AST 14 units/L (5-40) 05/02/21 14:07 ALT 11 units/L (7-56) 05/02/21 14:07 Alkaline Phosphatase 99 units/L (35-129) 05/02/21 14:07 Troponin T 0.075 ng/mL (0.00-0.029) H 05/02/21 14:07 Total Protein 5.9 g/dL (6.3-8.2) L 05/02/21 14:07 Albumin 3.7 g/dL (3.9-5) L 05/02/21 14:07 Albumin/Globulin Ratio 1.7 % 05/02/21 14:07 Hepatitis A IgM Ab Non-reactive (NonReactive) 05/02/21 14:07 Hep Bs Antigen Nonreactive (Negative) 05/02/21 14:07 Hep B Core IgM Ab Non-reactive (NonReactive) 05/02/21 14:07 Hepatitis C Antibody Non-reactive (NonReactive) 05/02/21 14:07 Active Medications - Current Medications Current Medications: Generic Name Dose Route Start Last Admin Trade Name Freq PRN Reason Stop Dose Admin Acetaminophen 650 mg 05/02/21 05:59 Acetaminophen 325 Mg Tab PO Q6H PRN Pain, Mild (1-3) Aspirin 81 mg 05/02/21 10:00 05/02/21 10:46 Aspirin Ec 81 Mg Tab PO 81 mg QDAY KO Administration Atorvastatin Calcium 40 mg 05/02/21 22:00 Atorvastatin 40 Mg Tab PO QHS [facility] Calcium Acetate 1,334 mg 05/02/21 08:00 05/02/21 14:22 Calcium Acetate 667 Mg Cap PO Not Given TID KO Carvedilol 12.5 mg 05/02/21 10:00 05/02/21 11:17 Carvedilol 12.5 Mg Tab PO Not Given BID KO Clonidine HCl 0.3 mg 05/02/21 10:00 05/02/21 10:47 Clonidine Tts 0.3 Mg/24 Hr Patch TD 0.3 mg Tu KO Administration Clopidogrel Bisulfate 75 mg 05/02/21 10:00 05/02/21 10:47 Clopidogrel 75 Mg Tab PO 75 mg QDAY KO Administration Dextrose 50 ml 05/02/21 06:04 Dextrose 50% In Water (25gm) 50 Ml Syringe IV Q30MIN PRN Hypoglycemia Protocol Heparin Sodium (Porcine) 5,000 unit 05/02/21 14:00 05/02/21 14:22 Heparin 5,000 Unit/1 Ml Vial SUB-Q Not Given Q8HR [facility] Hydralazine HCl 100 mg 05/02/21 08:00 05/02/21 14:22 Hydralazine 100 Mg Tab PO Not Given TID [facility] Sodium Chloride 100 mls @ 999 mls/hr 05/02/21 06:22 Nacl 0.9% IV JASS PRN Hypotension Insulin Glargine 22 units 05/02/21 22:00 Insulin Glargine 100 Units/Ml SUB-Q QHS [facility] Insulin Human Lispro 0 unit 05/02/21 12:00 05/02/21 18:35 Insulin Lispro 100 Unit/Ml SUB-Q 1 unit Q6HR KO Administration Protocol Ketorolac Tromethamine 15 mg 05/02/21 12:00 05/02/21 18:41 Ketorolac 30 Mg/1 Ml Inj IV 05/04/21 11:59 15 mg Q6HR KO Administration Lisinopril 20 mg 05/02/21 10:00 05/02/21 10:46 Lisinopril 20 Mg Tab PO 20 mg QDAY KO Administration Morphine Sulfate 2 mg 05/02/21 05:59 05/02/21 15:22 Morphine 4 Mg/1 Ml Inj IV 2 mg Q5MIN PRN Administration Chest Pain unrelieved by NTG Nifedipine 60 mg 05/02/21 10:00 05/02/21 11:18 Nifedipine Xl 60 Mg Tab PO Not Given BID KO Nitroglycerin 0.4 mg 05/02/21 05:59 Nitroglycerin 0.4 Mg Tab Subl SL Q5M PRN Chest Pain Pantoprazole Sodium 40 mg 05/02/21 10:00 05/02/21 10:47 Pantoprazole 40 Mg Tab PO 40 mg QDAC KO Administration Simethicone 80 mg 05/02/21 06:03 Simethicone 80 Mg Chew Tab PO Q6H PRN Gas pain Sodium Chloride 10 ml 05/02/21 05:59 Sodium Chloride 0.9% 10 Ml Flush Syringe IV PRN PRN LINE FLUSH Tramadol HCl 50 mg 05/02/21 05:59 Tramadol 50 Mg Tab PO Q6H PRN Pain, Moderate (4-6) Nutrition/Malnutrition Assess - Dietary Evaluation Nutrition/Malnutrition Findings: Nutrition Notes Start: 05/02/21 15:13 Freq: Status: Active Protocol: Document 05/02/21 15:13 LEMUEL (Rec: 05/02/21 15:23 LEMUEL [id number]) Nutrition Notes Need for Assessment generated from: MD Order,Education Initial or Follow up Brief Note Current Diagnosis CKD (stage V CKD),Coronary Artery Disease,Diabetes, Hypertension Other Pertinent Diagnosis Acute coronary syndrome, ESRD w/o HD, Hyperkalemia. Current Diet NPO (05/03 00:01). Height 5 ft 6 in Weight 58.967 kg [place] Body Weight (kg) 59.09 BMI 20.9 Weight Status Appropriate Subjective/Other Information RD consult for Nutrition Education on Heart healthy nutrition theraphy. Pt currently on ED. Nutrition education will be provided on F/U. #1 Nutrition Diagnosis Food and nutrition-related knowledge deficit Etiology Ongoing and concomitant chronic metabolic conditions. As Evidenced by Signs and Symptoms MD request for Nutrition Education. Nutrition Intervention Education Handouts Provided AND: Cardiac-TLC Nutrition Therapy. Goal #1 During LOS, provide Pt with nutrition education to foster behavioral changes towards a healthy lifestyle. Follow-Up By: 05/08/21 Additional Comments Nutrition education will be provided on F/U.
[2021-05-02] MEDS ORDERED: INSULIN GLARGINE 100 UNITS/ML SUB-Q SCH (22:00)
[2021-05-03] MEDS: carvediloL 12.5 MG TAB PO SCH ×2 (05:22→10:06)
[2021-05-03] MEDS: KETOROLAC 30 MG/1 ML INJ IV SCH ×3 (05:22→12:20)
[2021-05-03] MEDS: hydrALAZINE 100 MG TAB PO SCH ×3 (05:22→13:03)
[2021-05-03] MEDS: CALCIUM ACETATE 667 MG CAP PO SCH ×3 (05:22→13:03)
[2021-05-03] MEDS: NIFEdipine XL 60 MG TAB PO SCH ×2 (05:23→10:07)
[2021-05-03] MEDS: HEPARIN 5,000 UNIT/1 ML VIAL SUB-Q SCH ×3 (05:23→13:03)
[2021-05-03] MEDS: INSULIN LISPRO 100 UNIT/ML SUB-Q SCH ×2 (05:24→06:15)
[2021-05-03] MEDS ORDERED: ASPIRIN EC 325 MG TAB PO SCH (10:00)
[2021-05-03] MEDS: LISINOPRIL 20 MG TAB PO SCH (10:05)
[2021-05-03] MEDS: ASPIRIN EC 81 MG TAB PO SCH (10:06)
[2021-05-03] MEDS: CLOPIDOGREL 75 MG TAB PO SCH (10:06)
[2021-05-03] MEDS: PANTOPRAZOLE 40 MG TAB PO SCH (10:07)
--- NOTE | 2021-05-03 10:35 | Progress Note ---
Assessment and Plan Atypical, musculoskeletal type chest pain Serial ECGs are normal. Serial troponin levels are minimally elevated but unchanged on 5 serial measurements in the patient with end-stage renal disease. Chronic Hypertension ESRD on HD Recommendations: Continue trial of intravenous Toradol, dosed for renal failure. Otherwise, conservative cardiac management. Subjective Date of service: 05/03/21 Interval history: Patient is resting in bed comfortably. She reports she feels better. Denies chest pain. Objective Vital Signs Temp Pulse Resp BP BP Pulse Ox Pulse Ox 05/03/21 08:46 98 05/03/21 07:43 98.0 F 67 16 127/51 94 05/03/21 07:00 98 05/03/21 04:00 98.1 F 70 16 122/45 94 05/02/21 23:06 98.3 F 16 116/62 05/02/21 22:30 98.9 F 74 20 142/87 94 05/02/21 18:49 84 13 130/70 94 05/02/21 17:22 98.2 F 76 18 134/78 96 05/02/21 16:56 72 106/72 05/02/21 16:45 54 L 120/93 05/02/21 16:30 72 118/59 05/02/21 16:15 78 112/69 05/02/21 16:00 79 126/73 05/02/21 15:52 16 05/02/21 15:45 71 125/83 05/02/21 15:30 77 130/79 05/02/21 15:22 18 05/02/21 15:15 82 116/70 05/02/21 15:00 79 127/72 05/02/21 14:45 68 131/92 05/02/21 14:44 70 118/68 05/02/21 14:30 72 121/74 05/02/21 14:15 63 127/71 05/02/21 14:00 70 117/63 05/02/21 13:45 71 133/83 05/02/21 13:30 61 126/67 05/02/21 13:15 70 133/76 05/02/21 13:00 67 122/67 05/02/21 12:55 67 118/68 05/02/21 12:36 98.6 F 65 17 128/58 94 05/02/21 12:24 67 17 123/71 98 - Physical Examination General: No Apparent Distress HEENT: Positive: PERRL Neck: Positive: neck supple Cardiac: Positive: Reg Rate and Rhythm Lungs: Positive: Normal Breath Sounds Neuro: Positive: Grossly Intact Abdomen: Positive: Soft Extremities: Absent: edema - Labs and Meds Cardiac Enzymes 05/02/21 Range/Units 14:07 AST 14 (5-40) units/L Comprehensive Metabolic Panel 05/02/21 05/02/21 Range/Units 14:07 22:36 Sodium 130 L (137-145) mmol/L Potassium TNR 4.5 D Chloride 93.1 L (98-107) mmol/L Carbon Dioxide 25 (22-30) mmol/L BUN 62 H (7-17) mg/dL Creatinine 8.7 H (0.6-1.2) mg/dL Glucose 386 H (65-100) mg/dL Calcium 9.7 (8.4-10.2) mg/dL AST 14 (5-40) units/L ALT 11 (7-56) units/L Alkaline Phosphatase 99 (35-129) units/L Total Protein 5.9 L (6.3-8.2) g/dL Albumin 3.7 L (3.9-5) g/dL
--- NOTE | 2021-05-03 10:38 | Progress Note ---
Assessment and Plan - Patient Problems (1) Hyperkalemia Current Visit: Yes Status: Acute Plan to address problem: Hyperkalemia in a dialysis patient. Potassium is back to normal (2) Hyponatremia Current Visit: Yes Status: Acute Plan to address problem: Hypervolemic hyponatremia. Sodium improved back to normal with dialysis (3) Chest pain Current Visit: Yes Status: Acute Plan to address problem: Cardiology input appreciated. Musculoskeletal chest pain. No intervention planned. (4) ESRD needing dialysis Current Visit: Yes Status: Acute Plan to address problem: Chest x-ray showed pulmonary vascular congestion and mild interstitial edema. Improved with fluid removal with dialysis. (5) Hypertensive chronic kidney disease with stage 5 chronic kidney disease or end stage renal disease Current Visit: Yes Status: Acute Plan to address problem: Follow-up blood pressure on current medications (6) Anemia in end-stage renal disease Current Visit: Yes Status: Acute Plan to address problem: Give erythropoietin on dialysis (7) Type 2 diabetes mellitus with diabetic chronic kidney disease Current Visit: Yes Status: Acute Plan to address problem: Blood sugar management by primary attending Subjective Date of service: 05/03/21 Principal diagnosis: End-stage renal disease, chest pain Interval history: Patient seen lying in bed. She feels better today. No longer having chest pain. Inquires about discharge home Objective - Exam Narrative Exam: Elderly -Green[place]ic female lying in bed in no acute distress HEENT: NCAT, Neck: Supple, no venous distention CVS: S1S2 RRR with no murmur, rub or gallop Chest: Clear to auscultation Abdomen: Protuberant, soft, nontender, no organomegaly, bowel sounds are present Extremities: No edema, left upper extremity AV fistula Genitourinary: Deferred Skin: Warm and dry Neuro: Awake, alert no focal deficits - Vital Signs Vital signs: Vital Signs - 12hr 05/02/21 05/03/21 05/03/21 23:06 04:00 07:00 Temperature 98.3 F 98.1 F Pulse Rate 70 Respiratory 16 16 Rate Blood Pressure 116/62 Blood Pressure 122/45 [Right] O2 Sat by Pulse 94 98 Oximetry 05/03/21 05/03/21 07:43 08:46 Temperature 98.0 F Pulse Rate 67 Respiratory 16 Rate Blood Pressure 127/51 Blood Pressure [Right] O2 Sat by Pulse 94 98 Oximetry - Lab 05/02/21 08:18 12/14/21 22:36 Most recent lab results Calcium 9.7 mg/dL (8.4-10.2) 05/02/21 14:07 Medications & Allergies - Medications Allergies/Adverse Reactions: Allergies No Known Allergies Allergy (Verified 05/01/21 05:40) Home Medications: Home Medications Medication Instructions Recorded Confirmed Last Taken Type Albuterol Mdi (or & Nicu Only) 2 puff IH QID PRN 03/23/21 05/02/21 03/22/21 History [ProAir HFA Inhaler] Aspirin EC [Halfprin EC] 81 mg PO QDAY 03/23/21 05/02/21 04/30/21 09:00 History AtorvaSTATin [Lipitor] 20 mg PO QHS 03/23/21 05/02/21 04/30/21 21:00 History Calcium Acetate [Phoslo] 667 mg PO TID 03/23/21 05/02/21 05/01/21 09:00 History Clopidogrel [Plavix] 75 mg PO QDAY 03/23/21 05/02/21 05/01/21 09:00 History Hydralazine HCl 100 mg PO TID 03/23/21 05/02/21 05/01/21 09:00 History Insulin Glargine,Hum.rec.anlog 22 unit SQ QHS 03/23/21 05/02/21 04/30/21 21:00 History [Lantus Solostar] Insulin Lispro [Humalog 100 3 units SQ TIDAC 03/23/21 05/02/21 05/01/21 09:00 History UNITS/ML Kwikpen] NIFEdipine [Nifedipine ER] 60 mg PO BID 03/23/21 05/02/21 05/01/21 09:00 History carvediloL [Coreg] 12.5 mg PO BID 03/23/21 05/02/21 05/01/21 09:00 History cloNIDine-TTS PATCH [Catapres-Tts 1 patch TD Q7D 03/23/21 05/02/21 05/01/21 08:00 History 0.3mg Patch] lisinopriL [Lisinopril] 20 mg PO QDAY 03/23/21 05/02/21 05/01/21 08:00 History oxyCODONE /ACETAMINOPHEN [Percocet 1 tab PO BID 03/23/21 05/01/21 05/01/21 09:00 History 5/325 mg] Simethicone [Gas Relief] 80 mg PO Q6H PRN 5 Days #20 05/01/21 05/02/21 Unknown Rx tab.chew LORazepam [Lorazepam] 0.5 mg PO DAILY 05/02/21 05/02/21 05/01/21 08:00 History Active Medications: Generic Name Dose Route Start Last Admin Trade Name Freq PRN Reason Stop Dose Admin Acetaminophen 650 mg 05/02/21 05:59 Acetaminophen 325 Mg Tab PO Q6H PRN Pain, Mild (1-3) Aspirin 81 mg 05/02/21 10:00 05/03/21 10:06 Aspirin Ec 81 Mg Tab PO 81 mg QDAY KO Administration Atorvastatin Calcium 40 mg 05/02/21 22:00 05/03/21 05:23 Atorvastatin 40 Mg Tab PO Not Given QHS KO Calcium Acetate 1,334 mg 05/02/21 08:00 05/03/21 10:07 Calcium Acetate 667 Mg Cap PO Not Given TID KO Carvedilol 12.5 mg 05/02/21 10:00 05/03/21 10:06 Carvedilol 12.5 Mg Tab PO 12.5 mg BID KO Administration Clonidine HCl 0.3 mg 05/02/21 10:00 05/02/21 10:47 Clonidine Tts 0.3 Mg/24 Hr Patch TD 0.3 mg Tu KO Administration Clopidogrel Bisulfate 75 mg 05/02/21 10:00 05/03/21 10:06 Clopidogrel 75 Mg Tab PO 75 mg QDAY KO Administration Dextrose 50 ml 05/02/21 06:04 Dextrose 50% In Water (25gm) 50 Ml Syringe IV Q30MIN PRN Hypoglycemia Protocol Heparin Sodium (Porcine) 5,000 unit 05/02/21 14:00 05/03/21 06:07 Heparin 5,000 Unit/1 Ml Vial SUB-Q 5,000 unit Q8HR KO Administration Hydralazine HCl 100 mg 05/02/21 08:00 05/03/21 10:07 Hydralazine 100 Mg Tab PO Not Given TID KO Sodium Chloride 100 mls @ 999 mls/hr 05/02/21 06:22 Nacl 0.9% IV JASS PRN Hypotension Insulin Glargine 22 units 05/02/21 22:00 05/03/21 05:23 Insulin Glargine 100 Units/Ml SUB-Q Not Given QHS [facility] Insulin Human Lispro 0 unit 05/02/21 12:00 05/03/21 06:15 Insulin Lispro 100 Unit/Ml SUB-Q Not Given Q6HR [facility] Protocol Ketorolac Tromethamine 15 mg 05/02/21 12:00 05/03/21 06:06 Ketorolac 30 Mg/1 Ml Inj IV 05/04/21 11:59 15 mg Q6HR KO Administration Lisinopril 20 mg 05/02/21 10:00 05/03/21 10:05 Lisinopril 20 Mg Tab PO 20 mg QDAY [facility] Administration Morphine Sulfate 2 mg 05/02/21 05:59 05/02/21 23:50 Morphine 4 Mg/1 Ml Inj IV 2 mg Q5MIN PRN Administration Chest Pain unrelieved by NTG Nifedipine 60 mg 05/02/21 10:00 05/03/21 10:07 Nifedipine Xl 60 Mg Tab PO Not Given BID [facility] Nitroglycerin 0.4 mg 05/02/21 05:59 Nitroglycerin 0.4 Mg Tab Subl SL Q5M PRN Chest Pain Pantoprazole Sodium 40 mg 05/02/21 10:00 05/03/21 10:07 Pantoprazole 40 Mg Tab PO Not Given QDAC [facility] Simethicone 80 mg 05/02/21 06:03 Simethicone 80 Mg Chew Tab PO Q6H PRN Gas pain Sodium Chloride 10 ml 05/02/21 05:59 Sodium Chloride 0.9% 10 Ml Flush Syringe IV PRN PRN LINE FLUSH Tramadol HCl 50 mg 05/02/21 05:59 Tramadol 50 Mg Tab PO Q6H PRN Pain, Moderate (4-6)
[2021-05-03] MEDS ORDERED: INSULIN LISPRO 100 UNIT/ML SUB-Q SCH (12:00)
--- NOTE | 2021-05-03 12:27 | Electrocardiograph Report ---
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
[2021-05-03 16:26] VITALS: BP 135/66
--- NOTE | 2021-05-03 16:48 | Discharge Summary ---
Providers - Providers Date of Admission: 05/02/21 05:26 Attending physician: NGUYEN KIRKLAND MD 05/02/21 Consult to Cardiac Rehabilitation [CONS] Routine Reason For Exam: Phase I 05/02/21 05:23 Consult to Physician [CONS] Routine Comment: Dr. Quintero spoke with Dr. Santos @ 0522 Consulting Provider: ALESSIA SANTOS Physician Instructions: Reason For Exam: ESRD needing dialysis 05/02/21 06:04 Consult to Dietitian/Nutrition [CONS] Routine Physician Instructions: Reason For Exam: Reason for Consult: Diet education 05/02/21 06:10 Consult to Physician [CONS] Routine Comment: Consulting Provider: MARGE CHAPA Physician Instructions: Reason For Exam: acs Primary care physician: GLORY HOLE TENDER Hospitalization Condition: Stable Hospital course: 65-year-old -Armenian female with history of hypertension, diabetes, and end-stage renal disease was on hemodialysis on Saturday//Saturday. of sharp substernal chest pain that woke her from sleep a few hours ago. This patient was seen here for the same symptoms yesterday, 05/01. The patient was admitted to the hospitalist service and was discharged home yesterday afternoon after having downtrending troponins and getting relief of her chest discomfort. Her rn obgyn is Dr. Lama. Patient had an echocardiogram done in March showing only mild diastolic dysfunction with an EF of about 50%. The patient says that she has never had a stress test done. Currently the patient says that the chest pain is 9 out of 10 in intensity. No known aggravating or alleviating factors. EMS initially called in this patient as a possible STEMI alert. EKG was sent over to the medical social consultant on-call, Dr. Chapa, who did not feel that the EKG had a morphology consistent with ST elevation DC. STEMI activation was canceled. Initial troponin is 0.086, BUN 54 creatinine 8.2 so going to admit the patient will consult nephrology for hemodialysis we also consult social work lecturer for evaluation (1) atypical recurrent midsternal chest pains Current Visit: Yes Status: Acute Plan to address problem: Patient presents with recurrent midsternal chest pains worse with certain movements as well with deep breathing. Patient did have work-up in 03/2021 for the same presentation including CTA chest which was negative for aortic dissection and pulmonary embolism. Echocardiogram showed normal LVEF with normal wall motion, mild right ventricular dilatation and mild pulmonary hypertension. No reproducible chest wall tenderness to palpation. Patient was evaluated by again Dr Chapa, social work lecturer who felt the patient's likely noncardiac/musculoskeletal. The pain is improved with the Toradol injections. He did not recommend any further cardiac work-up. Patient was given a prescription for Protonix 40 mg daily as well as tramadol 50 mg twice daily as needed. Patient will see her PCP for follow-up. Patient was discharged in stable hemodynamic condition. She was agreeable with this plan of care and was happy to be discharged. (2) ESRD needing dialysis Current Visit: Yes Status: Acute Plan to address problem: Patient has end-stage renal disease on hemodialysis Saturday, and Saturday. Continue dialysis in house. (3) Hyperkalemia, 6.1 Current Visit: Yes Status: Acute Plan to address problem: Patient was emergently treated with calcium gluconate, D50, insulin and sodium bicarbonate followed by dialysis. Postdialysis potassium was 4.5. Potassium was in normal range during the March admission to this hospital. Nephrology was planning to increase her dialysis time from 2 hours to 3 hours per session. (4) Hypertension Current Visit: Yes Status: Acute Qualifiers: Hypertension type: primary hypertension Qualified Code(s): I10 - Essential (primary) hypertension Plan to address problem: Nifedipine 60 mg p.o. twice daily. Coreg 12.5 mg p.o. twice daily hydralazine 100 mg p.o. 3 times daily. (5) Diabetes Current Visit: No Status: Acute Plan to address problem: Continued basal and bolus insulin therapy. Disposition: 01 HOME / SELF CARE / HOMELESS Final Discharge Diagnosis (Prints w/discharge instructions): Noncardiac recurrent midsternal chest pain. CTA chest - 03/2021. ESRD on hemodialysis. Hypertension. Diabetes mellitus. Normal LV EF by echo in 03/2021 Core Measure Documentation - Palliative Care Palliative Care/ Comfort Measures: Not Applicable - Core Measures Any of the following diagnoses?: none Exam - Constitutional Vitals: Temp Pulse Resp BP Pulse Ox 97.9 F 66 16 135/66 95 05/03/21 16:22 05/03/21 16:22 05/03/21 16:22 05/03/21 16:22 05/03/21 16:22 General appearance: Present: no acute distress, other (Alert and oriented) - EENT Eyes: Present: PERRL ENT: clear oral mucosa - Neck Neck: Present: supple - Respiratory Respiratory effort: normal Respiratory: bilateral: CTA - Cardiovascular Rhythm: regular - Extremities Extremities: No edema - Abdominal General gastrointestinal: Present: soft, non-tender, non-distended, normal bowel sounds - Integumentary Integumentary: Absent: rash - Musculoskeletal Musculoskeletal: strength equal bilaterally - Neurologic Neurologic: no focal deficits - Additional findings Additional findings: No chest wall tenderness anteriorly to palpation. Plan Activity: advance as tolerated Diet: diabetic (1800 cals), renal Special Instructions: restrict fluid intake to (1000 ml) Follow up with: PRIMARY CARE, [Primary Care Provider] - 7 Days Prescriptions: Pantoprazole [Protonix TAB] 40 mg PO QDAC #30 tablet traMADoL [Ultram 50 MG tab] 50 mg PO BID PRN #30 tablet PRN Reason: Pain, Moderate (4-6)
== END 2021-05-03 19:05 | disposition home or self-care (01) ==
LOC: ED 03:56 → 4A 05:26
PROVIDERS: ADMIT Hospitalist; ATTEND Internal Medicine
DX: I24.9 Acute ischemic heart disease, unspecified (principal); I12.0 Hypertensive chronic kidney disease with stage 5 chronic kidney disease or end stage renal disease; N18.6 End stage renal disease; E11.22 Type 2 diabetes mellitus with diabetic chronic kidney disease; D63.1 Anemia in chronic kidney disease; R07.89 Other chest pain; E87.1 Hypo-osmolality and hyponatremia; E87.5 Hyperkalemia; Z99.2 Dependence on renal dialysis; Z79.82 Long term (current) use of aspirin; Z79.4 Long term (current) use of insulin; Z79.899 Other long term (current) drug therapy; Z98.890 Other specified postprocedural states
CPT/HCPCS: 36415; 71045; 80053; 82962; 84132; 84484; 85025; 93005; 96372; 96374; 96375; 96376; 99285; G0257; G0378; J0610; J1644; J1885; J2060; J2270; J2405; J3490; 80048; 80074; 85007; Q9967; J1815

== ENCOUNTER 2021-12-02 00:25 | Inpatient (IN) | payer MEDICARE, BC ==
[2021-12-02 01:56] LABS: Basophils % (Auto) 0.2 % (0.0-1.8); Hematocrit 35.1 % (30.3-42.9); Hemoglobin 11.4 gm/dl (10.1-14.3); Lymphocytes # (Auto) 0.6 K/mm3 (1.2-5.4); Lymphocytes % (Auto) 6.1 % (13.4-35.0); Mean Corpuscular HGB Conc 33 % (30-34); Mean Corpuscular Volume 95 fl (79-97); Monocytes # (Auto) 0.9 K/mm3 (0.0-0.8); Monocytes % (Auto) 9.1 % (0.0-7.3); Platelet Count 148 K/mm3 (140-440); Red Blood Count 3.69 M/mm3 (3.65-5.03); Red Cell Distribution Width 15.6 % (13.2-15.2)
[2021-12-02 02:22] LABS: Albumin 4.4 g/dL (3.9-5)
[2021-12-02] MEDS ORDERED: MORPHINE 4 MG/1 ML INJ IV ONE (11:23)
--- NOTE | 2021-12-02 11:28 | Emergency Department Report ---
ED Abdominal Pain HPI - General Chief Complaint: Abdominal Pain Stated Complaint: ABDOMINAL PAIN Time Seen by Provider: 12/02/21 11:03 Source: patient Mode of arrival: Wheelchair Limitations: No Limitations - History of Present Illness Initial Comments: Patient is a 66-year-old female with chronic kidney disease on dialysis presenting to ED with complaint of acute onset of lower abdominal pain beginning yesterday. She reports associated nausea and vomiting with abdominal distention. Denies any issues with bowel movements. Denies fever or chills. Pain is progressively worsening. No modifying factors. - Related Data Home Medications Medication Instructions Recorded Confirmed Last Taken Albuterol Mdi (or & Nicu Only) 2 puff IH QID PRN 03/23/21 05/03/21 05/01/21 [ProAir HFA Inhaler] Aspirin EC [Halfprin EC] 81 mg PO QDAY 03/23/21 05/02/21 04/30/21 09:00 AtorvaSTATin [Lipitor] 20 mg PO QHS 03/23/21 05/02/21 04/30/21 21:00 Calcium Acetate [Phoslo] 667 mg PO TID 03/23/21 05/02/21 05/01/21 09:00 Clopidogrel [Plavix] 75 mg PO QDAY 03/23/21 05/02/21 05/01/21 09:00 Hydralazine HCl 100 mg PO TID 03/23/21 05/02/21 05/01/21 09:00 Insulin Glargine,Hum.rec.anlog 22 unit SQ QHS 03/23/21 05/02/21 04/30/21 21:00 [Lantus Solostar] Insulin Lispro [Humalog 100 3 units SQ TIDAC 03/23/21 05/02/21 05/01/21 09:00 UNITS/ML Kwikpen] NIFEdipine [Nifedipine ER] 60 mg PO BID 03/23/21 05/03/21 2 Weeks Ago ~04/19/21 carvediloL [Coreg] 12.5 mg PO BID 03/23/21 05/02/21 05/01/21 09:00 cloNIDine-TTS PATCH [Catapres-Tts 1 patch TD Q7D 03/23/21 05/02/21 05/01/21 08:00 0.3mg Patch] lisinopriL [Lisinopril] 20 mg PO QDAY 03/23/21 05/02/21 04/30/21 oxyCODONE /ACETAMINOPHEN [Percocet 1 tab PO BID 03/23/21 05/03/21 04/30/21 5/325 mg] LORazepam [Lorazepam] 0.5 mg PO DAILY 05/02/21 05/02/21 05/01/21 08:00 Vit-Fe Fumar-FA [ 1 tab PO QDAY 05/03/21 05/03/21 05/01/21 Vitamin] Previous Rx's Medication Instructions Recorded Last Taken Type Simethicone [Gas Relief] 80 mg PO Q6H PRN 5 Days #20 05/01/21 Unknown Rx tab.chew Pantoprazole [Protonix TAB] 40 mg PO QDAC #30 tablet 05/03/21 Unknown Rx traMADoL [Ultram 50 MG tab] 50 mg PO BID PRN #30 tablet 05/03/21 Unknown Rx Allergies Allergy/AdvReac Type Severity Reaction Status Date / Time No Known Allergies Allergy Verified 05/03/21 11:21 ED Review of Systems ROS: Stated complaint: ABDOMINAL PAIN Other details as noted in HPI Constitutional: denies: chills, fever Respiratory: denies: cough, shortness of breath, wheezing Cardiovascular: denies: chest pain, palpitations Gastrointestinal: abdominal pain, nausea, vomiting Musculoskeletal: denies: back pain, joint swelling, arthralgia Skin: denies: rash, lesions Neurological: denies: headache, weakness, paresthesias Psychiatric: denies: anxiety, depression ED Past Medical Hx - Past Medical History Hx Hypertension: Yes Hx Diabetes: Yes Hx Renal Disease: Yes (Left fistula, dialysis Saturday, and Saturday) - Surgical History Additional Surgical History: mass on intestion, av fistula, - Social History Smoking Status: Never Smoker - Medications Home Medications: Home Medications Medication Instructions Recorded Confirmed Last Taken Type Albuterol Mdi (or & Nicu Only) 2 puff IH QID PRN 03/23/21 05/03/21 05/01/21 History [ProAir HFA Inhaler] Aspirin EC [Halfprin EC] 81 mg PO QDAY 03/23/21 05/02/21 04/30/21 09:00 History AtorvaSTATin [Lipitor] 20 mg PO QHS 03/23/21 05/02/21 04/30/21 21:00 History Calcium Acetate [Phoslo] 667 mg PO TID 03/23/21 05/02/21 05/01/21 09:00 History Clopidogrel [Plavix] 75 mg PO QDAY 03/23/21 05/02/21 05/01/21 09:00 History Hydralazine HCl 100 mg PO TID 03/23/21 05/02/21 05/01/21 09:00 History Insulin Glargine,Hum.rec.anlog 22 unit SQ QHS 03/23/21 05/02/21 04/30/21 21:00 History [Lantus Solostar] Insulin Lispro [Humalog 100 3 units SQ TIDAC 03/23/21 05/02/21 05/01/21 09:00 History UNITS/ML Kwikpen] NIFEdipine [Nifedipine ER] 60 mg PO BID 03/23/21 05/03/21 2 Weeks Ago History ~04/19/21 carvediloL [Coreg] 12.5 mg PO BID 03/23/21 05/02/21 05/01/21 09:00 History cloNIDine-TTS PATCH [Catapres-Tts 1 patch TD Q7D 03/23/21 05/02/21 05/01/21 08:00 History 0.3mg Patch] lisinopriL [Lisinopril] 20 mg PO QDAY 03/23/21 05/02/21 04/30/21 History oxyCODONE /ACETAMINOPHEN [Percocet 1 tab PO BID 03/23/21 05/03/21 04/30/21 History 5/325 mg] Simethicone [Gas Relief] 80 mg PO Q6H PRN 5 Days #20 05/01/21 05/02/21 Unknown Rx tab.chew LORazepam [Lorazepam] 0.5 mg PO DAILY 05/02/21 05/02/21 05/01/21 08:00 History Pantoprazole [Protonix TAB] 40 mg PO QDAC #30 tablet 05/03/21 Unknown Rx Vit-Fe Fumar-FA [ 1 tab PO QDAY 05/03/21 05/03/21 05/01/21 His tory Vitamin] traMADoL [Ultram 50 MG tab] 50 mg PO BID PRN #30 tablet 05/03/21 Unknown Rx ED Physical Exam - General Limitations: No Limitations General appearance: alert, in distress - Head Head exam: Present: atraumatic, normocephalic - Respiratory Respiratory exam: Present: normal lung sounds bilaterally. Absent: respiratory distress - Cardiovascular Cardiovascular Exam: Present: regular rate, normal rhythm, normal heart sounds - GI/Abdominal GI/Abdominal exam: Present: soft, distended, tenderness, guarding - Rectal Rectal exam: Present: deferred - Neurological Exam Neurological exam: Present: alert, oriented X3 - Psychiatric Psychiatric exam: Present: normal affect, normal mood - Skin Skin exam: Present: warm, dry, intact, normal color ED Course Vital Signs 12/02/21 12/02/21 12/02/21 00:29 10:52 11:00 Temperature 100.0 F H Pulse Rate 98 H 74 76 Respiratory 18 19 22 Rate Blood Pressure 136/82 180/84 O2 Sat by Pulse 97 100 Oximetry 12/02/21 12/02/21 12/02/21 12:00 13:00 14:01 Temperature Pulse Rate 75 74 Respiratory 25 H 18 Rate Blood Pressure 166/81 166/81 167/74 O2 Sat by Pulse 94 94 96 Oximetry 12/02/21 12/02/21 12/02/21 15:01 16:01 17:01 Temperature Pulse Rate 73 75 81 Respiratory 21 18 13 Rate Blood Pressure 157/77 157/77 153/80 O2 Sat by Pulse 92 91 93 Oximetry 12/02/21 18:01 Temperature Pulse Rate 81 Respiratory 21 Rate Blood Pressure 141/71 O2 Sat by Pulse 96 Oximetry ED Medical Decision Making - Lab Data Result diagrams: 12/02/21 01:42 12/02/21 01:42 - Medical Decision Making Labs reviewed. Chronic kidney disease noted. Lipase 80. WBC count within normal limits. CT abdomen pelvis shows moderate SBO with findings concerning for possible perforation. I discussed the case with Dr. Rodriguez who will evaluate at bedside. Patient started on Zosyn. Will place NG tube and admit to hospitalist. Surgery to follow as consult. Critical care attestation.: If time is entered above; I have spent that time in minutes in the direct care of this critically ill patient, excluding procedure time. ED Disposition Clinical Impression: Small bowel obstruction, Bowel perforation Disposition: ADMITTED INPATIENT Is pt being admited?: Yes Condition: Stable Instructions: Abdominal Pain (ED)
[2021-12-02] MEDS ORDERED: MORPHINE 4 MG/1 ML INJ IM ONE (13:02)
[2021-12-02] MEDS ORDERED: PIPERACILLIN/TAZOBACTAM 3.375 3.375 GM/50 ML BAG IV ONE (13:21)
--- NOTE | 2021-12-02 13:27 | Cat Scan Report ---
CT ABDOMEN AND PELVIS WITHOUT CONTRAST INDICATION: Abdominal pain CONTRAST: Without IV COMPARISON: CTA chest 03/24/2021, CT abdomen and pelvis 09/13/[address] scans at this location are performed using CT dose reduction for ALARA by means of automated e xposure control. FINDINGS: Heart is enlarged. Coronary artery calcifications. Minimal pericardial effusion. Small left pleural effusion. Mild left basilar atelectatic changes without definite pneumonic infiltrate. Sligh t patchy increased interstitial markings noted in the right middle lobe which are not significantly c hanged in most areas though medially there is mild increase in markings which I favor to be more atel ectatic than pneumonic infiltrate. The more prominent infiltrate seen on the left previously is not w ell compared today but appears to at least partially cleared. However, a rounded density posterior to the left heart border is again seen which is 2.5 cm in diameter which is mildly smaller than the 2.8 cm previously. This is water density internally and may be a small pericardial cyst. No significant abdominal wall herniation. Mild ascites is seen in the abdomen and pelvis. Small left renal cyst again noted. Small probable right renal cysts are seen though a 6 mm protrusion from the l ower pole of the right kidney posteriorly is mildly hyperdense and indeterminate. This area was not c overed on previous CTA chest for comparison. Mild left nephrolithiasis is seen without obstructive ch alberta. Punctate calculus is seen in the lower pole the right kidney. No obvious ureteral calculi or di latation. Urinary bladder shows no abnormalities. Gallbladder shows no calculi are obvious wall thickening. No biliary dilatation. No significant abnor malities noted of liver, spleen, pancreas, or adrenals. No lymphadenopathy. Atherosclerotic changes w ithout aneurysmal dilatation. Uterus shows multiple calcified leiomyomata. No adnexal masses. Appendix not clearly visualized. Gas and stool are seen in the colon. Moderate small bowel dilatation is seen involving mid small bowel loops with distal loops decompressed. No significant small bowel w all thickening or intramural gas. Adjacent to the anterior pelvic wall just to the left of midline in the infraumbilical region of the upper pelvis there is a small amount of gas within fluid adjacent to the pelvic wall musculature but appearing to be within the abdominal pelvic cavity which is not well organized. Slight stranding is s een in the subcutaneous fat at 1 area anterior to this region which was not present in 2018 and sugge sts interval progression of procedure but no gas is seen in the subcutaneous tissues. IMPRESSION: 1. Evidence of moderate mid to lower small bowel obstruction 2. Mild bilateral nephrolithiasis without acute change seen 3. Mild ascites 4. Possible pericardial cyst 5. Fluid and small amounts of gas which appear extraluminal directly adjacent to the upper left anter ior pelvic wall as above. Unless there has been a recent interventional procedure, this is of concern for small amount of perforation. No definite abscess is seen at this time. Reviewed with a colleague CRITICAL RESULT: Time of Discovery (CATTLE [employer] WHE[employer]ER/CDT): 1210 Time of Communication (CATTLE [employer] WHE[employer]ARMER/CDT): 1220 Licensed Practitioner Receiving Report: Dr. Olivier Read-Back Performed: Not applicable. Signer Name: Todd Smith MD Signed: 12/02/2021 1:22 PM Workstation Name: [email or web address] [id number]
--- NOTE | 2021-12-02 14:48 | Consultation ---
History of Present Illness Consult date: 12/02/21 Reason for consult: abdominal pain - History of present illness History of present illness: Patient is a 66-year-old female with chronic kidney disease on dialysis presenting to ED with complaint of acute onset of lower abdominal pain beginning yesterday. She reports associated nausea and vomiting with abdominal distention. Denies any issues with bowel movements. Denies fever or chills. Pain is progressively worsening. No modifying factors. WBC count is normal. CT scan of the abdomen pelvis is showing distention of the small bowel consistent with a partial small bowel obstruction. There may be some extraluminal bowel air as well. However this is difficult to see and may not actually represent a perforation. Patient also has a history of carcinoid tumor with exploration by Dr. Masterson at [facility]. She is being seen every 3 months by the medical oncologist also at [facility]. On her last visit she was told that there was no evidence of recurrence of her carcinoid tumor. She states that she is also had a colonoscopy that was normal more than a year ago. Medications and Allergies Allergies Allergy/AdvReac Type Severity Reaction Status Date / Time No Known Allergies Allergy Verified 05/03/21 11:21 Home Medications Medication Instructions Recorded Confirmed Last Taken Type Albuterol Mdi (or & Nicu Only) 2 puff IH QID PRN 03/23/21 05/03/21 05/01/21 History [ProAir HFA Inhaler] Aspirin EC [Halfprin EC] 81 mg PO QDAY 03/23/21 05/02/21 04/30/21 09:00 History AtorvaSTATin [Lipitor] 20 mg PO QHS 03/23/21 05/02/21 04/30/21 21:00 History Calcium Acetate [Phoslo] 667 mg PO TID 03/23/21 05/02/21 05/01/21 09:00 History Clopidogrel [Plavix] 75 mg PO QDAY 03/23/21 05/02/21 05/01/21 09:00 History Hydralazine HCl 100 mg PO TID 03/23/21 05/02/21 05/01/21 09:00 History Insulin Glargine,Hum.rec.anlog 22 unit SQ QHS 03/23/21 05/02/21 04/30/21 21:00 History [Lantus Solostar] Insulin Lispro [Humalog 100 3 units SQ TIDAC 03/23/21 05/02/21 05/01/21 09:00 History UNITS/ML Kwikpen] NIFEdipine [Nifedipine ER] 60 mg PO BID 03/23/21 05/03/21 2 Weeks Ago History ~04/19/21 carvediloL [Coreg] 12.5 mg PO BID 03/23/21 05/02/21 05/01/21 09:00 History cloNIDine-TTS PATCH [Catapres-Tts 1 patch TD Q7D 03/23/21 05/02/21 05/01/21 08:00 History 0.3mg Patch] lisinopriL [Lisinopril] 20 mg PO QDAY 03/23/21 05/02/21 04/30/21 History oxyCODONE /ACETAMINOPHEN [Percocet 1 tab PO BID 03/23/21 05/03/21 04/30/21 History 5/325 mg] Simethicone [Gas Relief] 80 mg PO Q6H PRN 5 Days #20 05/01/21 05/02/21 Unknown Rx tab.chew LORazepam [Lorazepam] 0.5 mg PO DAILY 05/02/21 05/02/21 05/01/21 08:00 History Pantoprazole [Protonix TAB] 40 mg PO QDAC #30 tablet 05/03/21 Unknown Rx Vit-Fe Fumar-FA [ 1 tab PO QDAY 05/03/21 05/03/21 05/01/21 History Vitamin] traMADoL [Ultram 50 MG tab] 50 mg PO BID PRN #30 tablet 05/03/21 Unknown Rx Exam Vital Signs Temp Pulse Resp BP Pulse Ox 100.0 F H 98 H 18 136/82 97 12/02/21 00:29 12/02/21 00:29 12/02/21 00:29 12/02/21 00:29 12/02/21 00:29 - General physical appearance Positive: well developed, moderate distress - Neck Positive: no masses, no bruits, trachea midline - Respiratory Positive: normal expansion - Cardiovascular Rhythm: regular - Extremities Extremities: no ischemia, No edema - Abdomen Abdomen: Present: soft, tender, distended, guarding. Absent: rigid Hernia: none - Neurologic Neurologic: alert and oriented to time, place and person, motor strength and sensation are grossly intact, CN II-XII intact Results - Labs 12/02/21 01:42 12/02/21 01:42 Abnormal lab results 12/02/21 12/02/21 Range/Units 01:42 01:42 RDW 15.6 H (13.2-15.2) % Lymph % (Auto) 6.1 L (13.4-35.0) % [place] % (Auto) 9.1 H (0.0-7.3) % Lymph # (Auto) 0.6 L (1.2-5.4) K/mm3 [place] # (Auto) 0.9 H (0.0-0.8) K/mm3 Seg Neutrophils % 84.6 H (40.0-70.0) % Seg Neutrophils # 8.2 H (1.8-7.7) K/mm3 Sodium 133 L (137-145) mmol/L Chloride 81.9 L (98-107) mmol/L Carbon Dioxide 33 H (22-30) mmol/L BUN 54 H (7-17) mg/dL Creatinine 7.9 H (0.6-1.2) mg/dL Glucose 473 H (65-100) mg/dL Alkaline Phosphatase 158 H (35-129) units/L Lipase 80 H (13-60) units/L Diabetes panel 12/02/21 Range/Units 01:42 Sodium 133 L (137-145) mmol/L Potassium 4.7 (3.6-5.0) mmol/L Chloride 81.9 L (98-107) mmol/L Carbon Dioxide 33 H (22-30) mmol/L BUN 54 H (7-17) mg/dL Creatinine 7.9 H (0.6-1.2) mg/dL Glucose 473 H (65-100) mg/dL Calcium 10.0 (8.4-10.2) mg/dL AST 15 (5-40) units/L ALT 10 (7-56) units/L Alkaline Phosphatase 158 H (35-129) units/L Total Protein 8.0 (6.3-8.2) g/dL Albumin 4.4 (3.9-5) g/dL Calcium panel 12/02/21 Range/Units 01:42 Calcium 10.0 (8.4-10.2) mg/dL Albumin 4.4 (3.9-5) g/dL Pituitary panel 12/02/21 Range/Units 01:42 Sodium 133 L (137-145) mmol/L Potassium 4.7 (3.6-5.0) mmol/L Chloride 81.9 L (98-107) mmol/L Carbon Dioxide 33 H (22-30) mmol/L BUN 54 H (7-17) mg/dL Creatinine 7.9 H (0.6-1.2) mg/dL Glucose 473 H (65-100) mg/dL Calcium 10.0 (8.4-10.2) mg/dL Adrenal panel 12/02/21 Range/Units 01:42 Sodium 133 L (137-145) mmol/L Potassium 4.7 (3.6-5.0) mmol/L Chloride 81.9 L (98-107) mmol/L Carbon Dioxide 33 H (22-30) mmol/L BUN 54 H (7-17) mg/dL Creatinine 7.9 H (0.6-1.2) mg/dL Glucose 473 H (65-100) mg/dL Calcium 10.0 (8.4-10.2) mg/dL Total Bilirubin 0.40 (0.1-1.2) mg/dL AST 15 (5-40) units/L ALT 10 (7-56) units/L Alkaline Phosphatase 158 H (35-129) units/L Total Protein 8.0 (6.3-8.2) g/dL Albumin 4.4 (3.9-5) g/dL Assessment and Plan 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 There may also be a small perforation. IV fluid at this time with antibiotics is planned. An NG tube should also be placed and close observation for now. We will continue to follow patient with you.
[2021-12-02] MEDS ORDERED: LORazepam 2 MG/ML VIAL IV ONE (16:33)
[2021-12-02] MEDS ORDERED: ALBUTEROL 8.5 GM MDI INHALATION IH PRN (19:24)
--- NOTE | 2021-12-02 19:24 | History and Physical Report ---
History of Present Illness Date of examination: 12/02/21 Date of admission: 12/02/2021 Chief complaint: Abdominal pain for 1 day History of present illness: Patient is a 66-year-old female with chronic kidney disease on dialysis presenting to ED with complaint of acute onset of lower abdominal pain beginning yesterday. She reports associated nausea and vomiting with abdominal distention. Denies any issues with bowel movements. Denies fever or chills. Pain is progressively worsening. No modifying factors. - Past Medical History --Hypertension: Yes --Diabetes: Yes -- Renal Disease: Yes (Left fistula, dialysis Saturday, and Saturday) - Surgical History --Additional Surgical History: mass on intestion, av fistula, - Social History --Smoking Status: Never Smoker Review of Systems ROS: Stated complaint: ABDOMINAL PAIN Other details as noted in HPI Constitutional: denies: chills, fever Respiratory: denies: cough, shortness of breath, wheezing Cardiovascular: denies: chest pain, palpitations Gastrointestinal: abdominal pain, nausea, vomiting Musculoskeletal: denies: back pain, joint swelling, arthralgia Skin: denies: rash, lesions Neurological: denies: headache, weakness, paresthesias Psychiatric: denies: anxiety, depression Medications and Allergies Allergies Allergy/AdvReac Type Severity Reaction Status Date / Time No Known Allergies Allergy Verified 05/03/21 11:21 Home Medications Medication Instructions Recorded Confirmed Last Taken Type Albuterol Mdi (or & Nicu Only) 2 puff IH QID PRN 03/23/21 12/03/21 05/01/21 History [ProAir HFA Inhaler] Aspirin EC [Halfprin EC] 81 mg PO QDAY 03/23/21 12/03/21 12/02/21 14:00 History Calcium Acetate [Phoslo] 667 mg PO TID 03/23/21 12/03/21 12/02/21 14:00 History Hydralazine HCl 100 mg PO TID 03/23/21 12/03/21 12/02/21 14:00 History Insulin Glargine,Hum.rec.anlog 22 unit SQ QHS 03/23/21 12/03/21 12/01/21 22:00 History [Lantus Solostar] Insulin Lispro [Humalog 100 3 units SQ TIDAC 03/23/21 12/03/2112/02/22 14:00 History UNITS/ML Kwikpen] NIFEdipine [Nifedipine ER] 60 mg PO BID 03/23/21 12/03/21 12/02/21 14:00 History carvediloL [Coreg] 12.5 mg PO BID 03/23/21 12/03/21 12/02/21 14:00 History cloNIDine-TTS PATCH [Catapres-Tts 1 patch TD Q7D 03/23/21 12/03/21 11/25/21 15:00 History 0.3mg Patch] lisinopriL [Lisinopril] 20 mg PO QDAY 03/23/21 12/03/21 12/02/21 14:00 History LORazepam [Lorazepam] 0.5 mg PO DAILY 05/02/21 12/03/21 12/02/21 14:00 History Vit-Fe Fumar-FA [ 1 tab PO QDAY 05/03/21 12/03/21 12/02/21 14:00 History Vitamin] Exam - Constitutional Vitals: Temp Pulse Resp BP Pulse Ox 100.0 F H 81 21 141/71 96 12/02/21 00:29 12/02/21 18:01 12/02/21 18:01 12/02/21 18:01 12/02/21 18:01 General appearance: Present: no acute distress, well-nourished - EENT Eyes: Present: PERRL ENT: hearing intact, clear oral mucosa - Neck Neck: Present: supple, normal ROM - Respiratory Respiratory effort: normal Respiratory: bilateral: CTA - Cardiovascular Heart rate: 78 Rhythm: regular Heart Sounds: Present: S1 & S2. Absent: rub, click - Extremities Extremities: pulses symmetrical, No edema Peripheral Pulses: within normal limits - Abdominal General gastrointestinal: Present: soft, tender, non-distended, normal bowel sounds Localized gastrointestinal: tender: diffuse, guarding: diffuse, rebound: diffuse Female genitourinary: Present: normal - Integumentary Integumentary: Present: clear, warm, dry - Musculoskeletal Musculoskeletal: gait normal, strength equal bilaterally - Psychiatric Psychiatric: appropriate mood/affect, intact judgment & insight - Neurologic Neurologic: CNII-XII intact, moves all extremities Results - Labs CBC & Chem 7: 12/03/21 04:37 12/03/21 04:37 Labs: Laboratory Last Values WBC 9.8 K/mm3 (4.5-11.0) 12/02/21 01:42 RBC 3.69 M/mm3 (3.65-5.03) 12/02/21 01:42 Hgb 11.4 gm/dl (10.1-14.3) 12/02/21 01:42 Hct 35.1 % (30.3-42.9) 12/02/21 01:42 MCV 95 fl (79-97) 12/02/21 01:42 MCH 31 pg (28-32) 12/02/21 01:42 MCHC 33 % (30-34) 12/02/21 01:42 RDW 15.6 % (13.2-15.2) H 12/02/21 01:42 Plt Count 148 K/mm3 (140-440) 12/02/21 01:42 Lymph % (Auto) 6.1 % (13.4-35.0) L 12/02/21 01:42 [place] % (Auto) 9.1 % (0.0-7.3) H 12/02/21 01:42 Eos % (Auto) 0.0 % (0.0-4.3) 12/02/21 01:42 Baso % (Auto) 0.2 % (0.0-1.8) 12/02/21 01:42 Lymph # (Auto) 0.6 K/mm3 (1.2-5.4) L 12/02/21 01:42 [place] # (Auto) 0.9 K/mm3 (0.0-0.8) H 12/02/21 01:42 Eos # (Auto) 0.0 K/mm3 (0.0-0.4) 12/02/21 01:42 Baso # (Auto) 0.0 K/mm3 (0.0-0.1) 12/02/21 01:42 Seg Neutrophils % 84.6 % (40.0-70.0) H 12/02/21 01:42 Seg Neutrophils # 8.2 K/mm3 (1.8-7.7) H 12/02/21 01:42 Sodium 133 mmol/L (137-145) L 12/02/21 01:42 Potassium 4.7 mmol/L (3.6-5.0) 12/02/21 01:42 Chloride 81.9 mmol/L (98-107) L 12/02/21 01:42 Carbon Dioxide 33 mmol/L (22-30) H 12/02/21 01:42 Anion Gap 23 mmol/L 12/02/21 01:42 BUN 54 mg/dL (7-17) H 12/02/21 01:42 Creatinine 7.9 mg/dL (0.6-1.2) H 12/02/21 01:42 Estimated GFR 6 ml/min 12/02/21 01:42 BUN/Creatinine Ratio 7 % 12/02/21 01:42 Glucose 473 mg/dL (65-100) H 12/02/21 01:42 Calcium 10.0 mg/dL (8.4-10.2) 12/02/21 01:42 Total Bilirubin 0.40 mg/dL (0.1-1.2) 12/02/21 01:42 AST 15 units/L (5-40) 12/02/21 01:42 ALT 10 units/L (7-56) 12/02/21 01:42 Alkaline Phosphatase 158 units/L (35-129) H 12/02/21 01:42 Total Protein 8.0 g/dL (6.3-8.2) 12/02/21 01:42 Albumin 4.4 g/dL (3.9-5) 12/02/21 01:42 Albumin/Globulin Ratio 1.2 % 12/02/21 01:42 Lipase 80 units/L (13-60) H 12/02/21 01:42 Short CBC 12/03/21 Range/Units 04:37 WBC 4.2 L (4.5-11.0) K/mm3 Hgb 9.5 L (10.1-14.3) gm/dl Hct 28.2 L D (30.3-42.9) % Plt Count 121 L (140-440) K/mm3 BMP 12/03/21 04:37 Sodium 137 Potassium 4.6 Chloride 87.2 L Carbon Dioxide 30 BUN 75 H Creatinine 10.1 H Glucose 139 H Calcium 9.0 Liver Function 12/03/21 Range/Units 04:37 Total Bilirubin 0.50 (0.1-1.2) mg/dL AST 11 (5-40) units/L ALT 7 (7-56) units/L Alkaline Phosphatase 113 (35-129) units/L Albumin 3.5 L (3.9-5) g/dL - Imaging and Cardiology CT scan - abdomen: report reviewed Imaging and Cardiology: Abdominal CAT scan Evidence of moderate mid to lower small bowel obstruction Mild bilateral hydro nephrolithiasis without acute change seen Mild ascites Possible pericardial cyst Fluid is 1 mL of the suture. Etc. mL directly adjacent to the upper left anterior liver as above unrelated to any recent interventional procedures of concern for small amount of perforation no definite abscess is seen at this time. Assessment and Plan Advance Directives: Yes (Full code) VTE prophylaxis?: Chemical Plan of care discussed with patient/family: Yes - Patient Problems (1) Small bowel obstruction Current Visit: Yes Status: Acute Plan to address problem: NG tube for decompression Surgery consult appreciated NG tube to low Gomco suction (2) Bowel perforation Current Visit: Yes Status: Acute Plan to address problem: Questionable IV antibiotic started with Zosyn and vancomycin No elevated white count Discussed with surgery (3) End stage renal disease Current Visit: Yes Status: Chronic Plan to address problem: Hemodialysis as per schedule (4) IDDM (insulin dependent diabetes mellitus) Current Visit: Yes Status: Chronic Plan to address problem: High-dose insulin sliding scale coverage and frequent Accu-Cheks every 4 hours (5) Hypertension Current Visit: Yes Status: Chronic Qualifiers: Hypertension type: primary hypertension Qualified Code(s): I10 - Essential (primary) hypertension Plan to address problem: Catapres patch if necessary (6) DVT prophylaxis Current Visit: No Status: Acute Plan to address problem: On heparin and GI prophylaxis (7) Advance care planning Current Visit: Yes Status: Acute Plan to address problem: Date patient denies education conducted, care plan discussed, diagnosis discussed, prognosis discussed. Patient acknowledges understanding and agrees with care plan. +30 minutes.
[2021-12-02] MEDS ORDERED: ALBUTEROL 2.5 MG/3 ML NEBU IH PRN (19:47)
[2021-12-02] MEDS ORDERED: ACETAMINOPHEN 650 MG RECT SUPP PR PRN (19:53)
[2021-12-02] MEDS ORDERED: VANCOMYCIN/NS 1 GM/250 ML 1 GM/250 ML BAG IV ONE (20:24)
[2021-12-02] MEDS ORDERED: FAMOTIDINE 20 MG/2 ML INJ IV SCH (22:00)
[2021-12-02] MEDS ORDERED: PIPERACIL/TAZOBACTA 4.5/NS 100 4.5 GM/100 ML VIAL IV SCH (22:00)
[2021-12-02] MEDS: INSULIN LISPRO 100 UNIT/ML SUB-Q SCH (22:35)
[2021-12-02] MEDS: HEPARIN 5,000 UNIT/1 ML VIAL SUB-Q SCH (22:36)
[2021-12-02] MEDS: FAMOTIDINE 20 MG/2 ML INJ IV SCH (23:08)
[2021-12-03] MEDS: D5W/0.9% NACL 1,000 ML IV SCH (00:04)
[2021-12-03] MEDS: PIPERACIL-TAZO 2.25 GM/50 ML 2.25 GM/50 ML BAG IV SCH ×4 (01:07→22:04)
[2021-12-03] MEDS: MORPHINE 2 MG/1 ML INJ IV PRN ×3 (02:50→23:24)
[2021-12-03] MEDS: INSULIN LISPRO 100 UNIT/ML SUB-Q SCH ×6 (02:51→22:03)
[2021-12-03 05:23] LABS: Hematocrit 28.2 % (30.3-42.9); Hemoglobin 9.5 gm/dl (10.1-14.3); Mean Corpuscular HGB Conc 34 % (30-34); Mean Corpuscular Volume 93 fl (79-97); Platelet Count 121 K/mm3 (140-440); Red Blood Count 3.03 M/mm3 (3.65-5.03); Red Cell Distribution Width 15.3 % (13.2-15.2)
[2021-12-03 05:37] LABS: Albumin 3.5 g/dL (3.9-5)
[2021-12-03 06:12] LABS: Anisocytosis 1+; Basophils % (Manual) 0 % (0.0-1.8); Eosinophils % (Manual) 0 % (0.0-4.3); Total Cells Counted 100
[2021-12-03 06:13] LABS: Platelet Estimate Consistent w Auto
--- NOTE | 2021-12-03 08:12 | Progress Note ---
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 There may also be a small perforation. IV fluid at this time with antibiotics is planned. An NG tube should also be placed and close observation for now. We will continue to follow patient with you. Subjective Date of service: 12/03/21 Patient Reports: Positive: no new complaints, still having pain, pain is less Narrative: Patient notes that she has not had any flatus or BM. She continues to have pain in the abdomen that is slightly improved. NG tube is in place. Continue IV fluids and NG tube decompression and try to get records from [place] patient's carcinoid and prior regimens. Objective Vital Signs - 12hr 12/02/21 12/02/21 12/02/21 20:17 20:18 20:21 Temperature Pulse Rate 90 90 Respiratory 24 23 Rate Respiratory Rate [ Generalized] Blood Pressure 140/73 140/73 O2 Sat by Pulse 90 99 92 Oximetry 12/02/21 12/02/21 12/02/21 20:31 20:41 20:51 Temperature Pulse Rate 93 H 92 H 89 Respiratory 24 23 22 Rate Respiratory Rate [ Generalized] Blood Pressure 140/73 140/73 152/76 O2 Sat by Pulse 91 92 96 Oximetry 12/02/21 12/02/21 12/02/21 21:01 21:11 21:21 Temperature Pulse Rate 91 H 90 90 Respiratory 22 24 25 H Rate Respiratory Rate [ Generalized] Blood Pressure 152/76 152/76 152/76 O2 Sat by Pulse 92 92 94 Oximetry 12/02/21 12/02/21 12/02/21 21:31 21:40 21:51 Temperature Pulse Rate 90 89 88 Respiratory 26 H 19 22 Rate Respiratory Rate [ Generalized] Blood Pressure 152/76 152/76 142/84 O2 Sat by Pulse 94 91 96 Oximetry 12/02/21 12/02/21 12/02/21 22:01 22:11 22:21 Temperature Pulse Rate 87 87 86 Respiratory 19 25 H 24 Rate Respiratory Rate [ Generalized] Blood Pressure 152/76 152/76 152/76 O2 Sat by Pulse 94 89 95 Oximetry 12/02/21 12/02/21 12/02/21 22:31 22:41 23:44 Temperature 100.4 F H Pulse Rate 87 87 87 Respiratory 25 H 26 H 20 Rate Respiratory Rate [ Generalized] Blood Pressure 152/76 152/76 153/79 O2 Sat by Pulse 96 92 96 Oximetry 12/03/21 12/03/21 12/03/21 00:26 00:32 01:00 Temperature Pulse Rate Respiratory 17 Rate Respiratory 18 Rate [ Generalized] Blood Pressure 163/101 O2 Sat by Pulse 98 Oximetry 12/03/21 12/03/21 12/03/21 02:50 03:20 04:24 Temperature 99.5 F Pulse Rate 85 Respiratory 18 17 20 Rate Respiratory Rate [ Generalized] Blood Pressure 150/75 O2 Sat by Pulse 97 Oximetry - Labs 12/03/21 04:37 12/03/21 04:37 Diabetes panel 12/03/21 Range/Units 04:37 Sodium 137 (137-145) mmol/L Potassium 4.6 (3.6-5.0) mmol/L Chloride 87.2 L (98-107) mmol/L Carbon Dioxide 30 (22-30) mmol/L BUN 75 H (7-17) mg/dL Creatinine 10.1 H (0.6-1.2) mg/dL Glucose 139 H (65-100) mg/dL Calcium 9.0 (8.4-10.2) mg/dL AST 11 (5-40) units/L ALT 7 (7-56) units/L Alkaline Phosphatase 113 (35-129) units/L Total Protein 6.5 (6.3-8.2) g/dL Albumin 3.5 L (3.9-5) g/dL Calcium panel 12/03/21 Range/Units 04:37 Calcium 9.0 (8.4-10.2) mg/dL Albumin 3.5 L (3.9-5) g/dL Pituitary panel 12/03/21 Range/Units 04:37 Sodium 137 (137-145) mmol/L Potassium 4.6 (3.6-5.0) mmol/L Chloride 87.2 L (98-107) mmol/L Carbon Dioxide 30 (22-30) mmol/L BUN 75 H (7-17) mg/dL Creatinine 10.1 H (0.6-1.2) mg/dL Glucose 139 H (65-100) mg/dL Calcium 9.0 (8.4-10.2) mg/dL Adrenal panel 12/03/21 Range/Units 04:37 Sodium 137 (137-145) mmol/L Potassium 4.6 (3.6-5.0) mmol/L Chloride 87.2 L (98-107) mmol/L Carbon Dioxide 30 (22-30) mmol/L BUN 75 H (7-17) mg/dL Creatinine 10.1 H (0.6-1.2) mg/dL Glucose 139 H (65-100) mg/dL Calcium 9.0 (8.4-10.2) mg/dL Total Bilirubin 0.50 (0.1-1.2) mg/dL AST 11 (5-40) units/L ALT 7 (7-56) units/L Alkaline Phosphatase 113 (35-129) units/L Total Protein 6.5 (6.3-8.2) g/dL Albumin 3.5 L (3.9-5) g/dL
[2021-12-03] MEDS: HYDROmorphone 0.5 MG/0.5 ML INJ IV PRN ×2 (10:30→18:15)
[2021-12-03] MEDS: FAMOTIDINE 20 MG/2 ML INJ IV SCH ×2 (10:30→22:00)
[2021-12-03] MEDS: HEPARIN 5,000 UNIT/1 ML VIAL SUB-Q SCH ×2 (10:40→22:04)
--- NOTE | 2021-12-03 10:40 | Progress Note ---
Assessment and Plan Assessment and plan: CT scan - abdomen: report reviewed Imaging and Cardiology: Abdominal CAT scan Evidence of moderate mid to lower small bowel obstruction Mild bilateral hydro nephrolithiasis without acute change seen Mild ascites,Possible pericardial cyst Fluid is 1 mL of the suture. Etc. mL directly adjacent to the upper left anterior liver as above unrelated to any recent interventional procedures of concern for small amount of perforation no definite abscess is seen at this time. Assessment and Plan Advance Directives: Yes (Full code) VTE prophylaxis?: Chemical Plan of care discussed with patient/family: Yes - Patient Problems (1) Small bowel obstruction NG tube for decompression Surgery consult appreciated NG tube to low Gomco suction (2) Bowel perforation Questionable IV antibiotic started with Zosyn and vancomycin No elevated white count Discussed with surgery (3) End stage renal disease Hemodialysis as per schedule (4) IDDM (insulin dependent diabetes mellitus) High-dose insulin sliding scale coverage and frequent Accu-Cheks every 4 hours (5) Hypertension Catapres patch if necessary (6) DVT prophylaxis On heparin and GI prophylaxis (7) Advance care planning Date patient denies education conducted, care plan discussed, diagnosis discussed, prognosis discussed. Patient acknowledges understanding and agrees with care plan. +30 minutes. Will closely monitor the patient and adjust the management as needed Transportation Maintenance Specialist recommendations noted and appreciated Plan of care reviewed with the patient and her nurse I also discussed with surgeon Dr. Michael Lynne History Interval history: I have discussed with surgeon Dr. Lynne the findings of CT scan. He feels that this is possibly a carcinoid syndrome Recommend n.p.o. status and NG tube placement Seen and examined the patient at the bedside Vital signs noted Hospitalist Physical - Constitutional Vitals: Temp Pulse Resp BP Pulse Ox 99.5 F 85 20 150/75 97 12/03/21 04:24 12/03/21 04:24 12/03/21 04:24 12/03/21 04:24 12/03/21 04:24 General appearance: Present: no acute distress, well-nourished - EENT Eyes: Present: PERRL, EOM intact - Neck Neck: Present: supple, normal ROM - Respiratory Respiratory effort: normal Respiratory: bilateral: diminished, negative: rales, rhonchi, wheezing - Cardiovascular Rhythm: regular Heart Sounds: Present: S1 & S2 - Extremities Extremities: no ischemia, No edema - Abdominal General gastrointestinal: soft, non-tender, non-distended, normal bowel sounds - Integumentary Integumentary: Present: clear, warm - Psychiatric Psychiatric: appropriate mood/affect, cooperative - Neurologic Neurologic: CNII-XII intact, moves all extremities Results - Labs CBC & Chem 7: 12/03/21 04:37 12/03/21 04:37 Labs: Laboratory Last Values WBC 4.2 K/mm3 (4.5-11.0) L 12/03/21 04:37 RBC 3.03 M/mm3 (3.65-5.03) L 12/03/21 04:37 Hgb 9.5 gm/dl (10.1-14.3) L 12/03/21 04:37 Hct 28.2 % (30.3-42.9) L D 12/03/21 04:37 MCV 93 fl (79-97) 12/03/21 04:37 MCH 31 pg (28-32) 12/03/21 04:37 MCHC 34 % (30-34) 12/03/21 04:37 RDW 15.3 % (13.2-15.2) H 12/03/21 04:37 Plt Count 121 K/mm3 (140-440) L 12/03/21 04:37 Lymph % (Auto) 6.1 % (13.4-35.0) L 12/02/21 01:42 [place] % (Auto) [place] [employer] 12/03/21 04:37 Eos % (Auto) 0.0 % (0.0-4.3) 12/02/21 01:42 Baso % (Auto) 0.2 % (0.0-1.8) 12/02/21 01:42 Lymph # (Auto) 0.6 K/mm3 (1.2-5.4) L 12/02/21 01:42 [place] # (Auto) 0.9 K/mm3 (0.0-0.8) H 12/02/21 01:42 Eos # (Auto) 0.0 K/mm3 (0.0-0.4) 12/02/21 01:42 Baso # (Auto) 0.0 K/mm3 (0.0-0.1) 12/02/21 01:42 Add Manual Diff Complete 12/03/21 04:37 Total Counted 100 12/03/21 04:37 Seg Neutrophils % 84.6 % (40.0-70.0) H 12/02/21 01:42 Seg Neuts % (Manual) 70.0 % (40.0-70.0) 12/03/21 04:37 Band Neutrophils % 1.0 % 12/03/21 04:37 Lymphocytes % (Manual) 18.0 % (13.4-35.0) 12/03/21 04:37 Reactive Lymphs % (Man) 0 % 12/03/21 04:37 Monocytes % (Manual) 11.0 % (0.0-7.3) H 12/03/21 04:37 Eosinophils % (Manual) 0 % (0.0-4.3) 12/03/21 04:37 Basophils % (Manual) 0 % (0.0-1.8) 12/03/21 04:37 Metamyelocytes % 0 % 12/03/21 04:37 Myelocytes % 0 % 12/03/21 04:37 Promyelocytes % 0 % 12/03/21 04:37 Blast Cells % 0 % 12/03/21 04:37 Nucleated RBC % Not Reportable 12/03/21 04:37 Seg Neutrophils # 8.2 K/mm3 (1.8-7.7) H 12/02/21 01:42 Seg Neutrophils # Man 2.9 K/mm3 (1.8-7.7) 12/03/21 04:37 Band Neutrophils # 0.0 K/mm3 12/03/21 04:37 Lymphocytes # (Manual) 0.8 K/mm3 (1.2-5.4) L 12/03/21 04:37 Abs React Lymphs (Man) 0.0 K/mm3 12/03/21 04:37 Monocytes # (Manual) 0.5 K/mm3 (0.0-0.8) 12/03/21 04:37 Eosinophils # (Manual) 0.0 K/mm3 (0.0-0.4) 12/03/21 04:37 Basophils # (Manual) 0.0 K/mm3 (0.0-0.1) 12/03/21 04:37 Metamyelocytes # 0.0 K/mm3 12/03/21 04:37 Myelocytes # 0.0 K/mm3 12/03/21 04:37 Promyelocytes # 0.0 K/mm3 12/03/21 04:37 Blast Cells # 0.0 K/mm3 12/03/21 04:37 WBC Morphology Not Reportable 12/03/21 04:37 Hypersegmented Neuts Not Reportable 12/03/21 04:37 Hyposegmented Neuts Not Reportable 12/03/21 04:37 Hypogranular Neuts Not Reportable 12/03/21 04:37 Smudge Cells Not Reportable 12/03/21 04:37 Toxic Granulation Not Reportable 12/03/21 04:37 Toxic Vacuolation Not Reportable 12/03/21 04:37 Dohle Bodies Not Reportable 12/03/21 04:37 Pelger-Huet Anomaly Not Reportable 12/03/21 04:37 Saleem Rods Not Reportable 12/03/21 04:37 Platelet Estimate Consistent w auto 12/03/21 04:37 Clumped Platelets Not Reportable 12/03/21 04:37 Plt Clumps, EDTA Not Reportable 12/03/21 04:37 Large Platelets Not Reportable 12/03/21 04:37 Giant Platelets Not Reportable 12/03/21 04:37 Platelet Satelliting Not Reportable 12/03/21 04:37 Plt Morphology Comment Not Reportable 12/03/21 04:37 RBC Morphology Not Reportable 12/03/21 04:37 Dimorphic RBCs Not Reportable 12/03/21 04:37 Polychromasia Not Reportable 12/03/21 04:37 Hypochromasia Not Reportable 12/03/21 04:37 Poikilocytosis Not Reportable 12/03/21 04:37 Anisocytosis 1+ 12/03/21 04:37 Microcytosis Not Reportable 12/03/21 04:37 Macrocytosis Not Reportable 12/03/21 04:37 Spherocytes Not Reportable 12/03/21 04:37 Pappenheimer Bodies Not Reportable 12/03/21 04:37 Sickle Cells Not Reportable 12/03/21 04:37 Target Cells Not Reportable 12/03/21 04:37 Tear Drop Cells Not Reportable 12/03/21 04:37 Ovalocytes Not Reportable 12/03/21 04:37 Helmet Cells Not Reportable 12/03/21 04:37 [place] Bodies Not Reportable 12/03/21 04:37 [place] Rings Not Reportable 12/03/21 04:37 [place] Cells Not Reportable 12/03/21 04:37 Bite Cells Not Reportable 12/03/21 04:37 Crenated Cell Not Reportable 12/03/21 04:37 Elliptocytes Not Reportable 12/03/21 04:37 Acanthocytes (Spur) Not Reportable 12/03/21 04:37 Rouleaux Not Reportable 12/03/21 04:37 Hemoglobin C Crystals Not Reportable 12/03/21 04:37 Schistocytes Not Reportable 12/03/21 04:37 Malaria parasites Not Reportable 12/03/21 04:37 Parker Bodies Not Reportable 12/03/21 04:37 Hem Pathologist Commnt No 12/03/21 04:37 Sodium 137 mmol/L (137-145) 12/03/21 04:37 Potassium 4.6 mmol/L (3.6-5.0) 12/03/21 04:37 Chloride 87.2 mmol/L (98-107) L 12/03/21 04:37 Carbon Dioxide 30 mmol/L (22-30) 12/03/21 04:37 Anion Gap 24 mmol/L 12/03/21 04:37 BUN 75 mg/dL (7-17) H 12/03/21 04:37 Creatinine 10.1 mg/dL (0.6-1.2) H 12/03/21 04:37 Estimated GFR 5 ml/min 12/03/21 04:37 BUN/Creatinine Ratio 7 % 12/03/21 04:37 Glucose 139 mg/dL (65-100) H 12/03/21 04:37 POC Glucose 120 mg/dL (70-105) H 12/03/21 05:32 Calcium 9.0 mg/dL (8.4-10.2) 12/03/21 04:37 Total Bilirubin 0.50 mg/dL (0.1-1.2) 12/03/21 04:37 AST 11 units/L (5-40) 12/03/21 04:37 ALT 7 units/L (7-56) 12/03/21 04:37 Alkaline Phosphatase 113 units/L (35-129) 12/03/21 04:37 Total Protein 6.5 g/dL (6.3-8.2) 12/03/21 04:37 Albumin 3.5 g/dL (3.9-5) L 12/03/21 04:37 Albumin/Globulin Ratio 1.2 % 12/03/21 04:37 Lipase 80 units/L (13-60) H 12/02/21 01:42 Boles/IV: Voiding Method Bedpan Active Medications - Current Medications Current Medications: Generic Name Dose Route Start Last Admin Trade Name Freq PRN Reason Stop Dose Admin Acetaminophen 650 mg 12/02/21 19:53 Acetaminophen 650 Mg Rect Supp NE Q4H PRN Pain MILD(1-3)/Fever >100.5/PIÑA Albuterol 2.5 mg 12/02/21 19:47 Albuterol 2.5 Mg/3 Ml Nebu IH Q4HRT PRN Shortness Of Breath Famotidine 10 mg 12/02/21 22:00 12/02/21 23:08 Famotidine 20 Mg/2 Ml Inj IV 10 mg BID KO Administration Heparin Sodium (Porcine) 5,000 unit 12/02/21 22:00 12/02/21 22:36 Heparin 5,000 Unit/1 Ml Vial SUB-Q 5,000 unit Q12HR KO Administration Hydromorphone HCl 0.5 mg 12/02/21 19:53 Hydromorphone 0.5 Mg/0.5 Ml Inj IV Q3H PRN Pain , Severe (7-10) Dextrose/Sodium Chloride 1,000 mls @ 100 mls/hr 12/02/21 20:00 12/03/21 00:04 D5ns IV 100 mls/hr DIRECT KO Administration Piperacillin Sod/Tazobactam Sod 2.25 gm in 50 mls @ 100 mls/hr 12/02/21 23:00 12/03/21 01:07 Zosyn/Ns 2.25 Gm/50ml IV 100 mls/hr Q8H KO Administration Protocol Insulin Human Lispro 0 unit 12/02/21 22:00 12/03/21 06:06 Insulin Lispro 100 Unit/Ml SUB-Q Not Given Q4HR KO Protocol Morphine Sulfate 2 mg 12/02/21 19:53 12/03/21 02:50 Morphine 2 Mg/1 Ml Inj IV 2 mg Q4H PRN Administration Pain, Moderate (4-6) Ondansetron HCl 4 mg 12/02/21 19:41 Ondansetron 4 Mg/2 Ml Inj IV Q3H PRN Nausea And Vomiting Sodium Chloride 10 ml 12/02/21 22:00 12/02/21 23:10 Sodium Chloride 0.9% 10 Ml Flush Syringe IV 10 ml BID KO Administration Sodium Chloride 10 ml 12/02/21 19:41 Sodium Chloride 0.9% 10 Ml Flush Syringe IV PRN PRN LINE FLUSH
[2021-12-03] MEDS: ONDANSETRON 4 MG/2 ML INJ IV PRN (14:12)
[2021-12-03] MEDS: hydrALAZINE 20 MG/1 ML INJ IV PRN (23:24)
[2021-12-04] MEDS: MORPHINE 2 MG/1 ML INJ IV PRN (02:10)
[2021-12-04] MEDS: INSULIN LISPRO 100 UNIT/ML SUB-Q SCH ×6 (02:36→22:00)
[2021-12-04] MEDS: D5W/0.9% NACL 1,000 ML IV SCH (05:33)
[2021-12-04] MEDS: ONDANSETRON 4 MG/2 ML INJ IV PRN ×2 (05:59→21:42)
--- NOTE | 2021-12-04 07:59 | Consultation ---
History of Present Illness - Reason for Consult Consult date: 12/04/21 Requesting physician: ANGUS LOZADA - History of Present Illness 66-year-old lady who is not known to me for presents on account of abdominal pain, nausea and vomiting of a few days duration. She has a history of diabetes mellitus, hypertension and end-stage renal disease on hemodialysis on a Saturday schedule under the care of Dr. Nikhil Dooley at [facility]. Patient states she was doing well until about a week prior to presentation when she developed abdominal pain which she describes as a sharp pain, 8/10 worse in the periumbilical/epigastric area associated with nausea and vomiting. She has not had a bowel movement in a week. She noticed increasing abdominal distention. No fever or chills. Her symptoms kept worsening and so she came to the hospital for further evaluation. CT scan of the abdomen pelvis in the ER showed moderate mid to lower small bowel obstruction, bilateral nephrolithiasis, mild ascites with small amount of fluid and gas suggesting po ssible perforation. Surgery has been consulted and she has an NG tube in place. I am consulted to assist with providing dialysis and managing fluid and electrolyte abnormalities. She admits to mild shortness of breath on presentation. Past History Past Medical History: diabetes, ESRD, hypertension Past Surgical History: Other (Laparotomy for intestinal mass in 2019. 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 denies: smoking, alcohol abuse, prescription drug abuse Family history: stroke (Mother of a stroke), other (Siblings are alive and well. Father of gunshot wound) Medications and Allergies Allergies Allergy/AdvReac Type Severity Reaction Status Date / Time No Known Allergies Allergy Verified 05/03/21 11:21 Home Medications Medication Instructions Recorded Confirmed Last Taken Type Albuterol Mdi (or & Nicu Only) 2 puff IH QID PRN 03/23/21 12/03/21 05/01/21 History [ProAir HFA Inhaler] Aspirin EC [Halfprin EC] 81 mg PO QDAY 03/23/21 12/03/21 12/02/21 14:00 History Calcium Acetate [Phoslo] 667 mg PO TID 03/23/21 12/03/21 12/02/21 14:00 History Hydralazine HCl 100 mg PO TID 03/23/21 12/03/21 12/02/21 14:00 History Insulin Glargine,Hum.rec.anlog 22 unit SQ QHS 03/23/21 12/03/21 12/01/21 22:00 History [Lantus Solostar] Insulin Lispro [Humalog 100 3 units SQ TIDAC 03/23/21 12/03/21 12/02/21 14:00 History UNITS/ML Kwikpen] NIFEdipine [Nifedipine ER] 60 mg PO BID 03/23/21 12/03/21 12/02/21 14:00 History carvediloL [Coreg] 12.5 mg PO BID 03/23/21 12/03/21 12/02/21 14:00 History cloNIDine-TTS PATCH [Catapres-Tts 1 patch TD Q7D 03/23/21 12/03/21 11/25/21 15:00 History 0.3mg Patch] lisinopriL [Lisinopril] 20 mg PO QDAY 03/23/21 12/03/21 12/02/21 14:00 History LORazepam [Lorazepam] 0.5 mg PO DAILY 05/02/21 12/03/21 12/02/21 14:00 History Vit-Fe Fumar-FA [ 1 tab PO QDAY 05/03/21 12/03/21 12/02/21 14:00 History Vitamin] Active Meds: Active Medications Acetaminophen (Acetaminophen 650 Mg Rect Supp) 650 mg RI Q4H PRN PRN Reason: Pain MILD(1-3)/Fever >100.5/PIÑA Albuterol (Albuterol 2.5 Mg/3 Ml Nebu) 2.5 mg IH Q4HRT PRN PRN Reason: Shortness Of Breath Famotidine (Famotidine 20 Mg/2 Ml Inj) 10 mg IV BID KO Last Admin: 12/03/21 22:00 Dose: 10 mg Heparin Sodium (Porcine) (Heparin 5,000 Unit/1 Ml Vial) 5,000 unit SUB-Q Q12HR KO Last Admin: 12/03/21 22:04 Dose: 5,000 unit Hydralazine HCl (Hydralazine 20 Mg/1 Ml Inj) 10 mg IV Q6HR PRN PRN Reason: Blood Pressure Last Admin: 12/03/21 23:24 Dose: 10 mg Hydromorphone HCl (Hydromorphone 0.5 Mg/0.5 Ml Inj) 0.5 mg IV Q3H PRN PRN Reason: Pain , Severe (7-10) Last Admin: 12/03/21 18:15 Dose: 0.5 mg Dextrose/Sodium Chloride (D5ns) 1,000 mls @ 100 mls/hr IV DIRECT KO Last Admin: 12/04/21 05:33 Dose: 100 mls/hr Piperacillin Sod/Tazobactam Sod (Zosyn/Ns 2.25 Gm/50ml) 2.25 gm in 50 mls @ 100 mls/hr IV Q8H KO; Protocol Last Admin: 12/03/21 22:04 Dose: 100 mls/hr Insulin Human Lispro (Insulin Lispro 100 Unit/Ml) 0 unit SUB-Q Q4HR KO; Protocol Last Admin: 12/04/21 05:58 Dose: 4 unit Morphine Sulfate (Morphine 2 Mg/1 Ml Inj) 2 mg IV Q4H PRN PRN Reason: Pain, Moderate (4-6) Last Admin: 12/04/21 02:10 Dose: 2 mg Ondansetron HCl (Ondansetron 4 Mg/2 Ml Inj) 4 mg IV Q3H PRN PRN Reason: Nausea And Vomiting Last Admin: 12/04/21 05:59 Dose: 4 mg Sodium Chloride (Sodium Chloride 0.9% 10 Ml Flush Syringe) 10 ml IV BID KO Last Admin: 12/03/21 22:04 Dose: 10 ml Sodium Chloride (Sodium Chloride 0.9% 10 Ml Flush Syringe) 10 ml IV PRN PRN PRN Reason: LINE FLUSH Review of Systems All systems: negative (Constitutional: no fever or chills. No anorexia or weight loss. HEENT: No sore throat or sinus drainage no hearing or vision impairment . Cardiovascular: No chest pain, shortness of breath, palpitations, lower extremity swelling or dizziness. Respiratory: Admits to nonprod cough, admits to SOB) Gastrointestinal: loss of appetite, other (See history of present illness), no hematemesis, no coffee ground emesis, no BRBPR, no melena, no hematochezia Musculoskeletal: no neck pain, no low back pain, no hot joints Integumentary: no rash, no pruritis Neurological: no paralysis, no weakness, no numbness, no tingling, no seizures, no headaches Psychiatric: no depression, no anxiety attacks Hematologic/Lymphatic: no easy bruising, no easy bleeding Exam - Vital Signs Vital signs: Vital Signs Temp Pulse Resp BP Pulse Ox 100.0 F H 98 H 18 136/82 97 12/02/21 00:29 12/02/21 00:29 12/02/21 00:29 12/02/21 00:12/02/21 00:29 - Physical Exam Narrative exam: Middle-aged -[place] female lying in bed in no acute distress HEENT: NCAT, pink conjunctiva, anicteric sclera, nasogastric tube intact Neck: Supple, no venous distention CVS: S1S2 RRR with no murmur, rub or gallop Chest: Clear to auscultation Abdomen: Distended, soft to firm, tender in the epigastrium, and periumbilical area no organomegaly, bowel sounds are present Extremities: No edema Genitourinary deferred Skin warm and dry Neuro: Awake, alert no focal deficits Results - Lab Results 12/03/21 04:37 12/03/21 04:37 Most recent lab results Calcium 9.0 mg/dL (8.4-10.2) 12/03/21 04:37 Assessment and Plan - Patient Problems (1) Bowel perforation Current Visit: Yes Status: Acute Plan to address problem: Possible bowel perforation. Surgery is following patient. (2) Small bowel obstruction Current Visit: Yes Status: Acute Plan to address problem: Nasogastric tube intact. Surgery is following. (3) End stage renal disease Current Visit: Yes Status: Chronic Plan to address problem: Hemodialysis on a Saturday, Saturday and Saturday schedule. 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
--- NOTE | 2021-12-04 09:48 | Progress Note ---
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 CAT scans from 12/02 and from this morning 12/04 are reviewed with radiologist. Small amount of free air seen on admission may have been part of a decompressed loop of small bowel. Areas improved on this morning's CAT scan. Patient with continued signs of small bowel obstruction however. NG tube requiring advancing 12 cm. Continue NG suction IV fluids and supportive measures. Also continue to try to obtain reports from [facility] on management of the carcinoid tumor and its current staging. Subjective Date of service: 12/04/21 Patient Reports: Positive: still having pain Narrative: CAT scans from 716 and from this morning are reviewed with radiologist. Small amount of free air seen on admission may have been part of a decompressed loop of small bowel. Areas improved on this morning's CAT scan. Patient with continued signs of small bowel obstruction however. NG tube requiring advancing 12 cm. Continue NG suction IV fluids and supportive measures. Also continue to try to obtain reports from [facility] on management of the carcinoid tumor and its current staging. Objective Vital Signs - 12hr 12/03/21 12/03/21 12/03/21 22:00 23:24 23:54 Temperature Pulse Rate 90 Respiratory 17 17 Rate Respiratory 18 Rate [ Generalized] Blood Pressure 172/83 O2 Sat by Pulse Oximetry 12/04/21 12/04/21 12/04/21 01:00 02:40 06:00 Temperature 99.1 F Pulse Rate 87 Respiratory 18 17 18 Rate Respiratory Rate [ Generalized] Blood Pressure 154/66 O2 Sat by Pulse 97 99 Oximetry - Labs 12/03/21 04:37 12/03/21 04:37
--- NOTE | 2021-12-04 09:49 | Cat Scan Report ---
CT ABDOMEN AND PELVIS WITHOUT CONTRAST INDICATION / CLINICAL INFORMATION: Follow-up of bowel obstruction and perforation. TECHNIQUE: Axial CT images were obtained through the abdomen and pelvis without IV contrast. All CT scans at this location are performed using CT dose reduction for ALARA by means of automated exposure control. COMPARISON: 12/02/2021 FINDINGS: LOWER CHEST: Trace bilateral pleural effusions. The right pleural effusion appears slightly increased compared to previous CT. There is bibasilar atelectasis. AORTA / ARTERIES: Mild atherosclerotic calcification without acute abnormality. IVC / VEINS: No significant abnormality. LYMPH NODES: No significant adenopathy. COLON: No significant abnormality. APPENDIX: Not visualized. STOMACH / SMALL BOWEL: Redemonstrated dilated loops of small bowel throughout the central abdomen. PERITONEUM: Trace free fluid. No free air. No fluid collection. LIVER: No significant abnormality. GALLBLADDER: No significant abnormality. BILE DUCTS: No significant abnormality. PANCREAS: No significant abnormality. SPLEEN: No significant abnormality. ADRENALS: No significant abnormality. RIGHT KIDNEY / URETER: Right renal cyst. No acute findings. LEFT KIDNEY / URETER: Left renal cyst. Nonobstructing nephrolith. No acute findings. URINARY BLADDER: No significant abnormality. REPRODUCTIVE ORGANS: Multiple calcified fibroids. SKELETAL SYSTEM: No significant abnormality. ADDITIONAL FINDINGS: Enteric tube terminates within the esophagus. IMPRESSION: 1. Redemonstrated dilated loops of small bowel concerning for small bowel obstruction. No intraperito jessie gas to suggest perforation. 2. Enteric tube terminates within the esophagus, recommend advancement. COMMUNICATION Time of Communication (PUMP OILER/CDT): 8:35 AM Licensed Practitioner Receiving Report: Dr. Rodriguez Signer Name: Subhash Brand DO Signed: 12/04/2021 9:45 AM Workstation Name: [id number]
[2021-12-04 10:01] LABS: Hematocrit 26.5 % (30.3-42.9); Hemoglobin 8.8 gm/dl (10.1-14.3); Mean Corpuscular HGB Conc 33 % (30-34); Mean Corpuscular Volume 95 fl (79-97); Platelet Count 103 K/mm3 (140-440); Red Blood Count 2.78 M/mm3 (3.65-5.03); Red Cell Distribution Width 15.7 % (13.2-15.2)
[2021-12-04] MEDS ORDERED: SODIUM CHLORIDE 0.9% 100 ML IV PRN (10:07)
[2021-12-04] MEDS ORDERED: EPOETIN ALFA-EPBX 10,000 UNIT/1 ML VIAL IV PRN (10:07)
[2021-12-04 10:24] LABS: Calcium 8.7 mg/dL (8.4-10.2)
[2021-12-04] MEDS: HEPARIN 5,000 UNIT/1 ML VIAL SUB-Q SCH ×2 (11:22→21:39)
[2021-12-04] MEDS: FAMOTIDINE 20 MG/2 ML INJ IV SCH ×2 (11:24→21:40)
[2021-12-04] MEDS: HYDROmorphone 0.5 MG/0.5 ML INJ IV PRN ×3 (11:24→21:42)
[2021-12-04] MEDS: hydrALAZINE 20 MG/1 ML INJ IV PRN ×2 (11:48→21:41)
--- NOTE | 2021-12-04 14:29 | Progress Note ---
Assessment and Plan Assessment and plan: CT scan - abdomen: report reviewed Imaging and Cardiology: Abdominal CAT scan Evidence of moderate mid to lower small bowel obstruction Mild bilateral hydro nephrolithiasis without acute change seen Mild ascites,Possible pericardial cyst Fluid is 1 mL of the suture. Etc. mL directly adjacent to the upper left anterior liver as above unrelated to any recent interventional procedures of concern for small amount of perforation no definite abscess is seen at this time. Advance Directives: Yes (Full code) VTE prophylaxis?: Chemical Plan of care discussed with patient/family: Yes - Patient Problems (1) Small bowel obstruction NG tube for decompression Surgery consult appreciated NG tube to low intermittent suction (2) Bowel perforation Questionable IV antibiotic started with Zosyn and vancomycin No elevated white count Discussed with surgery (3) End stage renal disease Hemodialysis as per schedule (4) IDDM (insulin dependent diabetes mellitus) High-dose insulin sliding scale coverage and frequent Accu-Cheks every 4 hours (5) Hypertension Catapres patch if necessary (6) DVT prophylaxis On heparin and GI prophylaxis (7) Advance care planning Date patient denies education conducted, care plan discussed, diagnosis discussed, prognosis discussed. Patient acknowledges understanding and agrees with care plan. +30 minutes. Will closely monitor the patient and adjust the management as needed Blast Furnace Helper recommendations noted and appreciated Plan of care reviewed with the patient and her nurse I also discussed with surgeon Dr. Michael Lynne History Interval history: Seen and examined the patient at the bedside Patient's chart and medications reviewed Patient slightly feels better Surgeon has evaluated the patient and scheduled for repeat CT scan Vital signs noted Hospitalist Physical - Constitutional Vitals: Temp Pulse Resp BP Pulse Ox 99.1 F 87 18 154/66 99 12/04/21 06:00 12/04/21 06:00 12/04/21 06:00 12/04/21 06:00 12/04/21 06:00 General appearance: Present: no acute distress, well-nourished - EENT Eyes: Present: PERRL, EOM intact - Neck Neck: Present: supple, normal ROM - Respiratory Respiratory effort: normal Respiratory: bilateral: diminished, negative: rales, rhonchi, wheezing - Cardiovascular Rhythm: regular Heart Sounds: Present: S1 & S2 - Extremities Extremities: no ischemia, No edema - Abdominal General gastrointestinal: soft, non-tender, tender, non-distended, normal bowel sounds - Integumentary Integumentary: Present: clear, warm - Psychiatric Psychiatric: appropriate mood/affect, cooperative - Neurologic Neurologic: moves all extremities Results - Labs CBC & Chem 7: 12/04/21 09:30 12/04/21 09:30 Labs: Laboratory Last Values WBC 3.7 K/mm3 (4.5-11.0) L 12/04/21 09:30 RBC 2.78 M/mm3 (3.65-5.03) L 12/04/21 09:30 Hgb 8.8 gm/dl (10.1-14.3) L 12/04/21 09:30 Hct 26.5 % (30.3-42.9) L 12/04/21 09:30 MCV 95 fl (79-97) 12/04/21 09:30 MCH 32 pg (28-32) 12/04/21 09:30 MCHC 33 % (30-34) 12/04/21 09:30 RDW 15.7 % (13.2-15.2) H 12/04/21 09:30 Plt Count 103 K/mm3 (140-440) L 12/04/21 09:30 Lymph % (Auto) 6.1 % (13.4-35.0) L 12/02/21 01:42 [place] % (Auto) Registered Pharmacist 12/03/21 04:37 Eos % (Auto) 0.0 % (0.0-4.3) 12/02/21 01:42 Baso % (Auto) 0.2 % (0.0-1.8) 12/02/21 01:42 Lymph # (Auto) 0.6 K/mm3 (1.2-5.4) L 12/02/21 01:42 [place] # (Auto) 0.9 K/mm3 (0.0-0.8) H 12/02/21 01:42 Eos # (Auto) 0.0 K/mm3 (0.0-0.4) 12/02/21 01:42 Baso # (Auto) 0.0 K/mm3 (0.0-0.1) 12/02/21 01:42 Add Manual Diff Complete 12/03/21 04:37 Total Counted 100 12/03/21 04:37 Seg Neutrophils % 84.6 % (40.0-70.0) H 12/02/21 01:42 Seg Neuts % (Manual) 70.0 % (40.0-70.0) 12/03/21 04:37 Band Neutrophils % 1.0 % 12/03/21 04:37 Lymphocytes % (Manual) 18.0 % (13.4-35.0) 12/03/21 04:37 Reactive Lymphs % (Man) 0 % 12/03/21 04:37 Monocytes % (Manual) 11.0 % (0.0-7.3) H 12/03/21 04:37 Eosinophils % (Manual) 0 % (0.0-4.3) 12/03/21 04:37 Basophils % (Manual) 0 % (0.0-1.8) 12/03/21 04:37 Metamyelocytes % 0 % 12/03/21 04:37 Myelocytes % 0 % 12/03/21 04:37 Promyelocytes % 0 % 12/03/21 04:37 Blast Cells % 0 % 12/03/21 04:37 Nucleated RBC % Not Reportable 12/03/21 04:37 Seg Neutrophils # 8.2 K/mm3 (1.8-7.7) H 12/02/21 01:42 Seg Neutrophils # Man 2.9 K/mm3 (1.8-7.7) 12/03/21 04:37 Band Neutrophils # 0.0 K/mm3 12/03/21 04:37 Lymphocytes # (Manual) 0.8 K/mm3 (1.2-5.4) L 12/03/21 04:37 Abs React Lymphs (Man) 0.0 K/mm3 12/03/21 04:37 Monocytes # (Manual) 0.5 K/mm3 (0.0-0.8) 12/03/21 04:37 Eosinophils # (Manual) 0.0 K/mm3 (0.0-0.4) 12/03/21 04:37 Basophils # (Manual) 0.0 K/mm3 (0.0-0.1) 12/03/21 04:37 Metamyelocytes # 0.0 K/mm3 12/03/21 04:37 Myelocytes # 0.0 K/mm3 12/03/21 04:37 Promyelocytes # 0.0 K/mm3 12/03/21 04:37 Blast Cells # 0.0 K/mm3 12/03/21 04:37 WBC Morphology Not Reportable 12/03/21 04:37 Hypersegmented Neuts Not Reportable 12/03/21 04:37 Hyposegmented Neuts Not Reportable 12/03/21 04:37 Hypogranular Neuts Not Reportable 12/03/21 04:37 Smudge Cells Not Reportable 12/03/21 04:37 Toxic Granulation Not Reportable 12/03/21 04:37 Toxic Vacuolation Not Reportable 12/03/21 04:37 Dohle Bodies Not Reportable 12/03/21 04:37 Pelger-Huet Anomaly Not Reportable 12/03/21 04:37 Saleem Rods Not Reportable 12/03/21 04:37 Platelet Estimate Consistent w auto 12/03/21 04:37 Clumped Platelets Not Reportable 12/03/21 04:37 Plt Clumps, EDTA Not Reportable 12/03/21 04:37 Large Platelets Not Reportable 12/03/21 04:37 Giant Platelets Not Reportable 12/03/21 04:37 Platelet Satelliting Not Reportable 12/03/21 04:37 Plt Morphology Comment Not Reportable 12/03/21 04:37 RBC Morphology Not Reportable 12/03/21 04:37 Dimorphic RBCs Not Reportable 12/03/21 04:37 Polychromasia Not Reportable 12/03/21 04:37 Hypochromasia Not Reportable 12/03/21 04:37 Poikilocytosis Not Reportable 12/03/21 04:37 Anisocytosis 1+ 12/03/21 04:37 Microcytosis Not Reportable 12/03/21 04:37 Macrocytosis Not Reportable 12/03/21 04:37 Spherocytes Not Reportable 12/03/21 04:37 Pappenheimer Bodies Not Reportable 12/03/21 04:37 Sickle Cells Not Reportable 12/03/21 04:37 Target Cells Not Reportable 12/03/21 04:37 Tear Drop Cells Not Reportable 12/03/21 04:37 Ovalocytes Not Reportable 12/03/21 04:37 Helmet Cells Not Reportable 12/03/21 04:37 [place] Bodies Not Reportable 12/03/21 04:37 [place] Rings Not Reportable 12/03/21 04:37 Consuelo Cells Not Reportable 12/03/21 04:37 Bite Cells Not Reportable 12/03/21 04:37 Crenated Cell Not Reportable 12/03/21 04:37 Elliptocytes Not Reportable 12/03/21 04:37 Acanthocytes (Spur) Not Reportable 12/03/21 04:37 Rouleaux Not Reportable 12/03/21 04:37 Hemoglobin C Crystals Not Reportable 12/03/21 04:37 Schistocytes Not Reportable 12/03/21 04:37 Malaria parasites Not Reportable 12/03/21 04:37 Parker Bodies Not Reportable 12/03/21 04:37 Hem Pathologist Commnt No 12/03/21 04:37 Sodium 138 mmol/L (137-145) 12/04/21 09:30 Potassium 4.7 mmol/L (3.6-5.0) 12/04/21 09:30 Chloride 91.8 mmol/L (98-107) L 12/04/21 09:30 Carbon Dioxide 25 mmol/L (22-30) 12/04/21 09:30 Anion Gap 26 mmol/L 12/04/21 09:30 BUN 91 mg/dL (7-17) H 12/04/21 09:30 Creatinine 12.5 mg/dL (0.6-1.2) H 12/04/21 09:30 Estimated GFR 4 ml/min 12/04/21 09:30 BUN/Creatinine Ratio 7 % 12/04/21 09:30 Glucose 185 mg/dL (65-100) H 12/04/21 09:30 POC Glucose 190 mg/dL (70-105) H 12/04/21 12:04 Calcium 8.7 mg/dL (8.4-10.2) 12/04/21 09:30 Total Bilirubin 0.50 mg/dL (0.1-1.2) 12/03/21 04:37 AST 11 units/L (5-40) 12/03/21 04:37 ALT 7 units/L (7-56) 12/03/21 04:37 Alkaline Phosphatase 113 units/L (35-129) 12/03/21 04:37 Total Protein 6.5 g/dL (6.3-8.2) 12/03/21 04:37 Albumin 3.5 g/dL (3.9-5) L 12/03/21 04:37 Albumin/Globulin Ratio 1.2 % 12/03/21 04:37 Lipase 80 units/L (13-60) H 12/02/21 01:42 Boles/IV: Voiding Method Toilet Active Medications - Current Medications Current Medications: Generic Name Dose Route Start Last Admin Trade Name Freq PRN Reason Stop Dose Admin Acetaminophen 650 mg 12/02/21 19:53 Acetaminophen 650 Mg Rect Supp [place] Q4H PRN Pain MILD(1-3)/Fever >100.5/PIÑA Albuterol 2.5 mg 12/02/21 19:47 Albuterol 2.5 Mg/3 Ml Nebu IH Q4HRT PRN Shortness Of Breath Epoetin Ariel-epbx 10,000 unit 12/04/21 10:07 Epoetin Ariel-Epbx 10,000 Unit/1 Ml Vial IV JASS PRN hemodialysis Famotidine 10 mg 12/02/21 22:00 12/04/21 11:24 Famotidine 20 Mg/2 Ml Inj IV 10 mg BID KO Administration Heparin Sodium (Porcine) 5,000 unit 12/02/21 22:00 12/04/21 11:22 Heparin 5,000 Unit/1 Ml Vial SUB-Q 5,000 unit Q12HR KO Administration Hydralazine HCl 10 mg 12/03/21 22:30 12/04/21 11:48 Hydralazine 20 Mg/1 Ml Inj IV 10 mg Q6HR PRN Administration Blood Pressure Hydromorphone HCl 0.5 mg 12/02/21 19:53 12/04/21 11:24 Hydromorphone 0.5 Mg/0.5 Ml Inj IV 0.5 mg Q3H PRN Administration Pain , Severe (7-10) Dextrose/Sodium Chloride 1,000 mls @ 100 mls/hr 12/02/21 20:00 12/04/21 05:33 D5ns IV 100 mls/hr DIRECT KO Administration Sodium Chloride 100 mls @ 999 mls/hr 12/04/21 10:07 Nacl 0.9% IV JASS PRN Hypotension Insulin Human Lispro 0 unit 12/02/21 22:00 12/04/21 11:27 Insulin Lispro 100 Unit/Ml SUB-Q 3 unit Q4HR KO Administration Protocol Morphine Sulfate 2 mg 12/02/21 19:53 12/04/21 02:10 Morphine 2 Mg/1 Ml Inj IV 2 mg Q4H PRN Administration Pain, Moderate (4-6) Ondansetron HCl 4 mg 12/02/21 19:41 12/04/21 05:59 Ondansetron 4 Mg/2 Ml Inj IV 4 mg Q3H PRN Administration Nausea And Vomiting Sodium Chloride 10 ml 12/02/21 22:00 12/04/21 11:25 Sodium Chloride 0.9% 10 Ml Flush Syringe IV 10 ml BID KO Administration Sodium Chloride 10 ml 12/02/21 19:41 Sodium Chloride 0.9% 10 Ml Flush Syringe IV PRN PRN LINE FLUSH
--- NOTE | 2021-12-04 16:34 | XRay Report ---
ABDOMEN 1 VIEW INDICATION / CLINICAL INFORMATION: repositioned of tube. COMPARISON: CT from same day. FINDINGS: Enteric catheter tip now projects over the stomach with side port in the proximal stomach. Dilated lo ops of small bowel remain. No free air. Signer Name: Joaquin Lara MD Signed: 12/04/2021 4:29 PM Workstation Name: [employer]
[2021-12-04 16:43] LABS: Hepatitis B Surface Antigen Non-Reactive (Negative); Hepatitis C Virus Antibody Non-Reactive (NonReactive)
[2021-12-05] MEDS: D5W/0.9% NACL 1,000 ML IV SCH (00:39)
[2021-12-05] MEDS: INSULIN LISPRO 100 UNIT/ML SUB-Q SCH ×5 (02:13→18:30)
[2021-12-05] MEDS: HYDROmorphone 0.5 MG/0.5 ML INJ IV PRN ×3 (02:18→15:15)
[2021-12-05] MEDS ORDERED: HYDROmorphone 1 MG/1 ML INJ IM NR (07:05)
--- NOTE | 2021-12-05 09:24 | Progress Note ---
Assessment and Plan Assessment and plan: Assessment and plan Advance Directives: Yes (Full code) VTE prophylaxis?: Chemical Plan of care discussed with patient/family: Yes -- Small bowel obstruction NG tube to low intermittent suction Surgery following, patient passed flatus IV fluids supportive care, start clear liquids --Possible bowel perforation/small bowel perforation ruled out IV antibiotic started with Zosyn and vancomycin No elevated white count CT abdomen and pelvis: 12/02/2021 Evidence of moderate mid to lower small bowel obstruction Mild bilateral hydro nephrolithiasis without acute change seen Mild ascites,Possible pericardial cyst Fluid is 1 mL of the suture. Etc. mL directly adjacent to the upper left anterior liver as above unrelated to any recent interventional procedures of concern for small amount of perforation no definite abscess is seen at this time. Repeat CT scan abdomen ; 12/04/2021 no evidence of bowel perforation IV antibiotics discontinued discussed with surgery Dr. Rodriguez -- End stage renal disease Hemodialysis as per schedule --IDDM (insulin dependent diabetes mellitus) High-dose insulin sliding scale coverage and frequent Accu-Cheks every 4 hours -- Hypertension Catapres patch if necessary -- DVT prophylaxis On heparin and GI prophylaxis --Advance care planning Date patient denies education conducted, care plan discussed, diagnosis discussed, prognosis discussed. Patient acknowledges understanding and agrees with care plan. +30 minutes. Will closely monitor the patient and adjust the management as needed Supervisor Publications recommendations noted and appreciated Plan of care reviewed with the patient and her nurse I also discussed with surgeon Dr. Michael Lynne Daily Hospital course 12/04/2021 Follow-up CT scan no evidence of abdominal perforation, discussed with surgeon Dr. Rodriguez Advised to DC IV antibiotics continue supportive care, continue n.p.o. status, NG tube in place intermittent suction IV fluid and pain medications, closely monitor the patient, follow surgery recommendations Plan of care reviewed with the patient and patient's nurse and the case management 12/05/2021; Start clear liquids and closely monitor Follow surgeon's recommendations History Interval history: I have seen and examined the patient at the bedside Patient's chart and medications reviewed Patient had flatus, did not have bowel movement NG tube in place with intermittent suction Vital signs noted Hospitalist Physical - Constitutional Vitals: Temp Pulse Resp BP Pulse Ox 99.6 F 77 18 141/83 99 12/05/21 05:43 12/05/21 05:43 12/05/21 05:43 12/05/21 05:43 12/05/21 08:48 General appearance: Present: no acute distress, well-nourished - EENT Eyes: Present: PERRL, EOM intact - Neck Neck: Present: supple, normal ROM - Respiratory Respiratory effort: normal Respiratory: bilateral: diminished, negative: rales, rhonchi, wheezing - Cardiovascular Rhythm: regular Heart Sounds: Present: S1 & S2 - Extremities Extremities: no ischemia, No edema - Abdominal General gastrointestinal: soft, non-tender, non-distended - Integumentary Integumentary: Present: clear, warm - Psychiatric Psychiatric: appropriate mood/affect, cooperative - Neurologic Neurologic: moves all extremities Results - Labs CBC & Chem 7: 12/04/21 09:30 12/04/21 09:30 Labs: Laboratory Last Values WBC 3.7 K/mm3 (4.5-11.0) L 12/04/21 09:30 RBC 2.78 M/mm3 (3.65-5.03) L 12/04/21 09:30 Hgb 8.8 gm/dl (10.1-14.3) L 12/04/21 09:30 Hct 26.5 % (30.3-42.9) L 12/04/21 09:30 MCV 95 fl (79-97) 12/04/21 09:30 MCH 32 pg (28-32) 12/04/21 09:30 MCHC 33 % (30-34) 12/04/21 09:30 RDW 15.7 % (13.2-15.2) H 12/04/21 09:30 Plt Count 103 K/mm3 (140-440) L 12/04/21 09:30 Lymph % (Auto) 6.1 % (13.4-35.0) L 12/02/21 01:42 [place] % (Auto) Loader Operator/Ground Leader 12/03/21 04:37 Eos % (Auto) 0.0 % (0.0-4.3) 12/02/21 01:42 Baso % (Auto) 0.2 % (0.0-1.8) 12/02/21 01:42 Lymph # (Auto) 0.6 K/mm3 (1.2-5.4) L 12/02/21 01:42 [place] # (Auto) 0.9 K/mm3 (0.0-0.8) H 12/02/21 01:42 Eos # (Auto) 0.0 K/mm3 (0.0-0.4) 12/02/21 01:42 Baso # (Auto) 0.0 K/mm3 (0.0-0.1) 12/02/21 01:42 Add Manual Diff Complete 12/03/21 04:37 Total Counted 100 12/03/21 04:37 Seg Neutrophils % 84.6 % (40.0-70.0) H 12/02/21 01:42 Seg Neuts % (Manual) 70.0 % (40.0-70.0) 12/03/21 04:37 Band Neutrophils % 1.0 % 12/03/21 04:37 Lymphocytes % (Manual) 18.0 % (13.4-35.0) 12/03/21 04:37 Reactive Lymphs % (Man) 0 % 12/03/21 04:37 Monocytes % (Manual) 11.0 % (0.0-7.3) H 12/03/21 04:37 Eosinophils % (Manual) 0 % (0.0-4.3) 12/03/21 04:37 Basophils % (Manual) 0 % (0.0-1.8) 12/03/21 04:37 Metamyelocytes % 0 % 12/03/21 04:37 Myelocytes % 0 % 12/03/21 04:37 Promyelocytes % 0 % 12/03/21 04:37 Blast Cells % 0 % 12/03/21 04:37 Nucleated RBC % Not Reportable 12/03/21 04:37 Seg Neutrophils # 8.2 K/mm3 (1.8-7.7) H 12/02/21 01:42 Seg Neutrophils # Man 2.9 K/mm3 (1.8-7.7) 12/03/21 04:37 Band Neutrophils # 0.0 K/mm3 12/03/21 04:37 Lymphocytes # (Manual) 0.8 K/mm3 (1.2-5.4) L 12/03/21 04:37 Abs React Lymphs (Man) 0.0 K/mm3 12/03/21 04:37 Monocytes # (Manual) 0.5 K/mm3 (0.0-0.8) 12/03/21 04:37 Eosinophils # (Manual) 0.0 K/mm3 (0.0-0.4) 12/03/21 04:37 Basophils # (Manual) 0.0 K/mm3 (0.0-0.1) 12/03/21 04:37 Metamyelocytes # 0.0 K/mm3 12/03/21 04:37 Myelocytes # 0.0 K/mm3 12/03/21 04:37 Promyelocytes # 0.0 K/mm3 12/03/21 04:37 Blast Cells # 0.0 K/mm3 12/03/21 04:37 WBC Morphology Not Reportable 12/03/21 04:37 Hypersegmented Neuts Not Reportable 12/03/21 04:37 Hyposegmented Neuts Not Reportable 12/03/21 04:37 Hypogranular Neuts Not Reportable 12/03/21 04:37 Smudge Cells Not Reportable 12/03/21 04:37 Toxic Granulation Not Reportable 12/03/21 04:37 Toxic Vacuolation Not Reportable 12/03/21 04:37 Dohle Bodies Not Reportable 12/03/21 04:37 Pelger-Huet Anomaly Not Reportable 12/03/21 04:37 Saleem Rods Not Reportable 12/03/21 04:37 Platelet Estimate Consistent w auto 12/03/21 04:37 Clumped Platelets Not Reportable 12/03/21 04:37 Plt Clumps, EDTA Not Reportable 12/03/21 04:37 Large Platelets Not Reportable 12/03/21 04:37 Giant Platelets Not Reportable 12/03/21 04:37 Platelet Satelliting Not Reportable 12/03/21 04:37 Plt Morphology Comment Not Reportable 12/03/21 04:37 RBC Morphology Not Reportable 12/03/21 04:37 Dimorphic RBCs Not Reportable 12/03/21 04:37 Polychromasia Not Reportable 12/03/21 04:37 Hypochromasia Not Reportable 12/03/21 04:37 Poikilocytosis Not Reportable 12/03/21 04:37 Anisocytosis 1+ 12/03/21 04:37 Microcytosis Not Reportable 12/03/21 04:37 Macrocytosis Not Reportable 12/03/21 04:37 Spherocytes Not Reportable 12/03/21 04:37 Pappenheimer Bodies Not Reportable 12/03/21 04:37 Sickle Cells Not Reportable 12/03/21 04:37 Target Cells Not Reportable 12/03/21 04:37 Tear Drop Cells Not Reportable 12/03/21 04:37 Ovalocytes Not Reportable 12/03/21 04:37 Helmet Cells Not Reportable 12/03/21 04:37 [place] Bodies Not Reportable 12/03/21 04:37 [place] Rings Not Reportable 12/03/21 04:37 Consuelo Cells Not Reportable 12/03/21 04:37 Bite Cells Not Reportable 12/03/21 04:37 Crenated Cell Not Reportable 12/03/21 04:37 Elliptocytes Not Reportable 12/03/21 04:37 Acanthocytes (Spur) Not Reportable 12/03/21 04:37 Rouleaux Not Reportable 12/03/21 04:37 Hemoglobin C Crystals Not Reportable 12/03/21 04:37 Schistocytes Not Reportable 12/03/21 04:37 Malaria parasites Not Reportable 12/03/21 04:37 [place] Bodies Not Reportable 12/03/21 04:37 Hem Pathologist Commnt No 12/03/21 04:37 Sodium 138 mmol/L (137-145) 12/04/21 09:30 Potassium 4.7 mmol/L (3.6-5.0) 12/04/21 09:30 Chloride 91.8 mmol/L (98-107) L 12/04/21 09:30 Carbon Dioxide 25 mmol/L (22-30) 12/04/21 09:30 Anion Gap 26 mmol/L 12/04/21 09:30 BUN 91 mg/dL (7-17) H 12/04/21 09:30 Creatinine 12.5 mg/dL (0.6-1.2) H 12/04/21 09:30 Estimated GFR 4 ml/min 12/04/21 09:30 BUN/Creatinine Ratio 7 % 12/04/21 09:30 Glucose 185 mg/dL (65-100) H 12/04/21 09:30 POC Glucose 193 mg/dL (70-105) H 12/05/21 05:15 Calcium 8.7 mg/dL (8.4-10.2) 12/04/21 09:30 Total Bilirubin 0.50 mg/dL (0.1-1.2) 12/03/21 04:37 AST 11 units/L (5-40) 12/03/21 04:37 ALT 7 units/L (7-56) 12/03/21 04:37 Alkaline Phosphatase 113 units/L (35-129) 12/03/21 04:37 Total Protein 6.5 g/dL (6.3-8.2) 12/03/21 04:37 Albumin 3.5 g/dL (3.9-5) L 12/03/21 04:37 Albumin/Globulin Ratio 1.2 % 12/03/21 04:37 Lipase 80 units/L (13-60) H 12/02/21 01:42 Hepatitis A IgM Ab Non-reactive (NonReactive) 12/04/21 09:30 Hep Bs Antigen Non-reactive (Negative) 12/04/21 09:30 Hep B Core IgM Ab Non-reactive (NonReactive) 12/04/21 09:30 Hepatitis C Antibody Non-reactive (NonReactive) 12/04/21 09:30 Boles/IV: Voiding Method Bedpan Active Medications - Current Medications Current Medications: Generic Name Dose Route Start Last Admin Trade Name Freq PRN Reason Stop Dose Admin Acetaminophen 650 mg 12/02/21 19:53 Acetaminophen 650 Mg Rect Supp [place] Q4H PRN Pain MILD(1-3)/Fever >100.5/PIÑA Albuterol 2.5 mg 12/02/21 19:47 Albuterol 2.5 Mg/3 Ml Nebu IH Q4HRT PRN Shortness Of Breath Epoetin Ariel-epbx 10,000 unit 12/04/21 10:07 Epoetin Ariel-Epbx 10,000 Unit/1 Ml Vial IV JASS PRN hemodialysis Famotidine 10 mg 12/02/21 22:00 12/04/21 21:40 Famotidine 20 Mg/2 Ml Inj IV 10 mg BID KO Administration Heparin Sodium (Porcine) 5,000 unit 12/02/21 22:00 12/04/21 21:39 Heparin 5,000 Unit/1 Ml Vial SUB-Q 5,000 unit Q12HR KO Administration Hydralazine HCl 10 mg 12/03/21 22:30 12/04/21 21:41 Hydralazine 20 Mg/1 Ml Inj IV 10 mg Q6HR PRN Administration Blood Pressure Hydromorphone HCl 0.5 mg 12/02/21 19:53 12/05/21 02:18 Hydromorphone 0.5 Mg/0.5 Ml Inj IV 0.5 mg Q3H PRN Administration Pain , Severe (7-10) Dextrose/Sodium Chloride 1,000 mls @ 100 mls/hr 12/02/21 20:00 12/05/21 00:39 D5ns IV 100 mls/hr DIRECT KO Administration Sodium Chloride 100 mls @ 999 mls/hr 12/04/21 10:07 Nacl 0.9% IV JASS PRN Hypotension Insulin Human Lispro 0 unit 12/02/21 22:00 12/05/21 05:50 Insulin Lispro 100 Unit/Ml SUB-Q 3 unit Q4HR KO Administration Protocol Morphine Sulfate 2 mg 12/02/21 19:53 12/04/21 02:10 Morphine 2 Mg/1 Ml Inj IV 2 mg Q4H PRN Administration Pain, Moderate (4-6) Ondansetron HCl 4 mg 12/02/21 19:41 12/04/21 21:42 Ondansetron 4 Mg/2 Ml Inj IV 4 mg Q3H PRN Administration Nausea And Vomiting Sodium Chloride 10 ml 12/02/21 22:00 12/04/21 21:40 Sodium Chloride 0.9% 10 Ml Flush Syringe IV 10 ml BID KO Administration Sodium Chloride 10 ml 12/02/21 19:41 Sodium Chloride 0.9% 10 Ml Flush Syringe IV PRN PRN LINE FLUSH
[2021-12-05] MEDS: FAMOTIDINE 20 MG/2 ML INJ IV SCH ×2 (09:54→21:19)
[2021-12-05] MEDS: HEPARIN 5,000 UNIT/1 ML VIAL SUB-Q SCH ×2 (09:54→21:19)
--- NOTE | 2021-12-05 10:34 | Progress Note ---
Assessment and Plan - Patient Problems (1) Small bowel obstruction Current Visit: Yes Status: Acute Plan to address problem: Nasogastric tube intact. Repeat CT scan of the abdomen noted. Surgery is following. (2) End stage renal disease Current Visit: Yes Status: Chronic Plan to address problem: Hemodialysis on a Saturday, Saturday and Saturday schedule. (3) Anemia in end-stage renal disease Current Visit: No Status: Acute Plan to address problem: Give erythropoietin on dialysis (4) Hypertensive chronic kidney disease with stage 5 chronic kidney disease or end stage renal disease Current Visit: No Status: Acute Plan to address problem: Follow-up blood pressure on current medications (5) Type 2 diabetes mellitus with diabetic chronic kidney disease Current Visit: No Status: Acute Plan to address problem: Blood sugar management by primary attending Subjective Date of service: 12/05/21 Principal diagnosis: End-stage renal disease, small bowel obstruction Interval history: Patient seen lying in bed. Still complains of abdominal pain but a bit better. Also complains of discomfort in her throat. Admits to nausea but no vomiting Objective - Exam Narrative Exam: Middle-aged -[place] female lying in bed in no acute distress HEENT: NCAT, pink conjunctiva, anicteric sclera, nasogastric tube intact Neck: Supple, no venous distention CVS: S1S2 RRR with no murmur, rub or gallop Chest: Clear to auscultation Abdomen: Distended, soft to firm, tender in the epigastrium, and periumbilical area no organomegaly, bowel sounds are present Extremities: No edema Genitourinary deferred Skin warm and dry Neuro: Awake, alert no focal deficits - Vital Signs Vital signs: Vital Signs - 12hr 12/05/21 12/05/21 12/05/21 00:45 01:00 05:43 Temperature 99.5 F 99.6 F Pulse Rate 86 77 Respiratory 18 18 Rate Blood Pressure 152/68 141/83 [Right] O2 Sat by Pulse 99 99 100 Oximetry 12/05/21 08:48 Temperature Pulse Rate Respiratory Rate Blood Pressure [Right] O2 Sat by Pulse 99 Oximetry - Lab 12/04/21 09:30 12/04/21 09:30 Most recent lab results Calcium 8.7 mg/dL (8.4-10.2) 12/04/21 09:30 Medications & Allergies - Medications Allergies/Adverse Reactions: Allergies No Known Allergies Allergy (Verified 05/03/21 11:21) Home Medications: Home Medications Medication Instructions Recorded Confirmed Last Taken Type Albuterol Mdi (or & Nicu Only) 2 puff IH QID PRN 03/23/21 12/03/21 05/01/21 History [ProAir HFA Inhaler] Aspirin EC [Halfprin EC] 81 mg PO QDAY 03/23/21 12/03/21 12/02/21 14:00 History Calcium Acetate [Phoslo] 667 mg PO TID 03/23/21 12/03/21 12/02/21 14:00 History Hydralazine HCl 100 mg PO TID 03/23/21 12/03/21 12/02/21 14:00 History Insulin Glargine,Hum.rec.anlog 22 unit SQ QHS 03/23/21 12/03/21 12/01/21 22:00 History [Lantus Solostar] Insulin Lispro [Humalog 100 3 units SQ TIDAC 03/23/21 12/03/21 12/02/21 14:00 History UNITS/ML Kwikpen] NIFEdipine [Nifedipine ER] 60 mg PO BID 03/23/21 12/03/21 12/02/21 14:00 History carvediloL [Coreg] 12.5 mg PO BID 03/23/21 12/03/21 12/02/21 14:00 History cloNIDine-TTS PATCH [Catapres-Tts 1 patch TD Q7D 03/23/21 12/03/21 11/25/21 15:00 History 0.3mg Patch] lisinopriL [Lisinopril] 20 mg PO QDAY 03/23/21 12/03/21 12/02/21 14:00 History LORazepam [Lorazepam] 0.5 mg PO DAILY 05/02/21 12/03/21 12/02/21 14:00 History Vit-Fe Fumar-FA [ 1 tab PO QDAY 05/03/21 12/03/21 12/02/21 14:00 History Vitamin] Active Medications: Generic Name Dose Route Start Last Admin Trade Name Freq PRN Reason Stop Dose Admin Acetaminophen 650 mg 12/02/21 19:53 Acetaminophen 650 Mg Rect Supp VA Q4H PRN Pain MILD(1-3)/Fever >100.5/PIÑA Albuterol 2.5 mg 12/02/21 19:47 Albuterol 2.5 Mg/3 Ml Nebu IH Q4HRT PRN Shortness Of Breath Epoetin Ariel-epbx 10,000 unit 12/04/21 10:07 Epoetin Ariel-Epbx 10,000 Unit/1 Ml Vial IV JASS PRN hemodialysis Famotidine 10 mg 12/02/21 22:00 12/05/21 09:54 Famotidine 20 Mg/2 Ml Inj IV 10 mg BID KO Administration Heparin Sodium (Porcine) 5,000 unit 12/02/21 22:00 12/05/21 09:54 Heparin 5,000 Unit/1 Ml Vial SUB-Q 5,000 unit Q12HR KO Administration Hydralazine HCl 10 mg 12/03/21 22:30 12/04/21 21:41 Hydralazine 20 Mg/1 Ml Inj IV 10 mg Q6HR PRN Administration Blood Pressure Hydromorphone HCl 0.5 mg 12/02/21 19:53 12/05/21 02:18 Hydromorphone 0.5 Mg/0.5 Ml Inj IV 0.5 mg Q3H PRN Administration Pain , Severe (7-10) Dextrose/Sodium Chloride 1,000 mls @ 100 mls/hr 12/02/21 20:00 12/05/21 00:39 D5ns IV 100 mls/hr DIRECT KO Administration Sodium Chloride 100 mls @ 999 mls/hr 12/04/21 10:07 Nacl 0.9% IV JASS PRN Hypotension Insulin Human Lispro 0 unit 12/02/21 22:00 12/05/21 05:50 Insulin Lispro 100 Unit/Ml SUB-Q 3 unit Q4HR KO Administration Protocol Morphine Sulfate 2 mg 12/02/21 19:53 12/04/21 02:10 Morphine 2 Mg/1 Ml Inj IV 2 mg Q4H PRN Administration Pain, Moderate (4-6) Ondansetron HCl 4 mg 12/02/21 19:41 12/04/21 21:42 Ondansetron 4 Mg/2 Ml Inj IV 4 mg Q3H PRN Administration Nausea And Vomiting Sodium Chloride 10 ml 12/02/21 22:00 12/05/21 09:54 Sodium Chloride 0.9% 10 Ml Flush Syringe IV 10 ml BID KO Administration Sodium Chloride 10 ml 12/02/21 19:41 Sodium Chloride 0.9% 10 Ml Flush Syringe IV PRN PRN LINE FLUSH
--- NOTE | 2021-12-05 14:06 | Progress Note ---
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 CAT scans from 12/02 and from this morning 12/04 are reviewed with radiologist. Small amount of free air seen on admission may have been part of a decompressed loop of small bowel. Areas improved on this morning's CAT scan. Patient with continued signs of small bowel obstruction however. NG tube requiring advancing 12 cm. Patient with flatus today hopefully this is the first sign of resolving partial small bowel obstruction. NG tube will be clamped patient may try limited amounts of clear liquid diet. We will resume NG suction if patient has any nausea vomiting or pain. Also continue to try to obtain reports from [place] on management of the carcinoid tumor and its current staging. Subjective Date of service: 12/05/21 Patient Reports: Positive: feels better, flatus, no bowel movement Narrative: Patient noted for is on rounds today. Flatter than she was yesterday no BM as yet. She also expressed that she would like to go home. Objective Vital Signs - 12hr 12/05/21 12/05/21 05:43 08:48 Temperature 99.6 F Pulse Rate 77 Respiratory 18 Rate Blood Pressure 141/83 [Right] O2 Sat by Pulse 100 99 Oximetry - Labs 12/04/21 09:30 12/04/21 09:30
[2021-12-05] MEDS: hydrALAZINE 20 MG/1 ML INJ IV PRN (21:19)
[2021-12-05] MEDS: MORPHINE 2 MG/1 ML INJ IV PRN (21:22)
[2021-12-06] MEDS: INSULIN LISPRO 100 UNIT/ML SUB-Q SCH ×7 (00:18→22:23)
[2021-12-06] MEDS: D5W/0.9% NACL 1,000 ML IV SCH (02:12)
[2021-12-06 05:30] LABS: Hematocrit 24.3 % (30.3-42.9); Hemoglobin 8.1 gm/dl (10.1-14.3); Mean Corpuscular HGB Conc 33 % (30-34); Mean Corpuscular Volume 96 fl (79-97); Platelet Count 122 K/mm3 (140-440); Red Blood Count 2.54 M/mm3 (3.65-5.03); Red Cell Distribution Width 15.4 % (13.2-15.2)
[2021-12-06 05:47] LABS: Calcium 8.9 mg/dL (8.4-10.2)
--- NOTE | 2021-12-06 08:48 | Progress Note ---
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 CAT scans from 12/02 and from this morning 12/04 are reviewed with radiologist. Small amount of free air seen on admission may have been part of a decompressed loop of small bowel. Areas improved on this morning's CAT scan. Patient with continued signs of small bowel obstruction however. NG tube requiring advancing 12 cm. Patient with flatus today hopefully this is the first sign of resolving partial small bowel obstruction. NG removed by pt thru the night. She states that she has small amounts of flatus. Repeat the axr today. Also continue to try to obtain reports from [place] on management of the carcinoid tumor and its current staging. Subjective Date of service: 12/06/21 Patient Reports: Positive: no new complaints, still having pain, flatus Objective Vital Signs - 12hr 12/05/21 12/05/21 12/05/21 21:17 21:20 22:56 Temperature 99.9 F H Pulse Rate 80 82 Respiratory 18 18 Rate Blood Pressure 186/71 Blood Pressure 170/70 [Right] O2 Sat by Pulse 100 100 100 Oximetry 12/06/21 12/06/21 05:45 08:19 Temperature 98.7 F Pulse Rate 79 Respiratory 18 Rate Blood Pressure Blood Pressure 164/64 [Right] O2 Sat by Pulse 100 99 Oximetry - Labs 12/06/21 05:00 12/06/21 05:00 Diabetes panel 12/06/21 Range/Units 05:00 Sodium 140 (137-145) mmol/L Potassium 4.0 (3.6-5.0) mmol/L Chloride 92.0 L (98-107) mmol/L Carbon Dioxide 24 (22-30) mmol/L BUN 55 H (7-17) mg/dL Creatinine 10.1 H (0.6-1.2) mg/dL Glucose 191 H (65-100) mg/dL Calcium 8.9 (8.4-10.2) mg/dL Calcium panel 12/06/21 Range/Units 05:00 Calcium 8.9 (8.4-10.2) mg/dL Phosphorus 6.00 H (2.5-4.5) mg/dL Pituitary panel 12/06/21 Range/Units 05:00 Sodium 140 (137-145) mmol/L Potassium 4.0 (3.6-5.0) mmol/L Chloride 92.0 L (98-107) mmol/L Carbon Dioxide 24 (22-30) mmol/L BUN 55 H (7-17) mg/dL Creatinine 10.1 H (0.6-1.2) mg/dL Glucose 191 H (65-100) mg/dL Calcium 8.9 (8.4-10.2) mg/dL Adrenal panel 12/06/21 Range/Units 05:00 Sodium 140 (137-145) mmol/L Potassium 4.0 (3.6-5.0) mmol/L Chloride 92.0 L (98-107) mmol/L Carbon Dioxide 24 (22-30) mmol/L BUN 55 H (7-17) mg/dL Creatinine 10.1 H (0.6-1.2) mg/dL Glucose 191 H (65-100) mg/dL Calcium 8.9 (8.4-10.2) mg/dL
[2021-12-06] MEDS: HEPARIN 5,000 UNIT/1 ML VIAL SUB-Q SCH ×2 (09:01→22:22)
[2021-12-06] MEDS: FAMOTIDINE 20 MG/2 ML INJ IV SCH ×2 (09:01→22:22)
[2021-12-06] MEDS: MORPHINE 2 MG/1 ML INJ IV PRN (09:07)
--- NOTE | 2021-12-06 09:41 | XRay Report ---
ABDOMEN 2 VIEWS INDICATION / CLINICAL INFORMATION: fu sbo. COMPARISON: CT and abdominal radiograph dated 12/04/2021 FINDINGS: TUBES / LINES: None. BOWEL GAS PATTERN: Redemonstrated dilated gas-filled loops of small bowel throughout the central abdo men with multiple air-fluid levels. FREE AIR / EXTRALUMINAL GAS: None seen. ADDITIONAL FINDINGS: No significant additional findings. CHEST: Visualized chest shows no significant abnormality. IMPRESSION: 1. Redemonstrated dilated loops of small bowel throughout the abdomen concerning for small bowel obst ruction. Signer Name: Subhash Brand DO Signed: 12/06/2021 9:36 AM Workstation Name: [id number]
--- NOTE | 2021-12-06 10:01 | Progress Note ---
Assessment and Plan Assessment and plan: Advance Directives: Yes (Full code) VTE prophylaxis?: Chemical Plan of care discussed with patient/family: Yes -- Small bowel obstruction NG tube to low intermittent suction Surgery following, patient passed flatus IV fluids supportive care, start clear liquids --Possible bowel perforation/small bowel perforation ruled out IV antibiotic started with Zosyn and vancomycin No elevated white count CT abdomen and pelvis: 12/02/2021 Evidence of moderate mid to lower small bowel obstruction Mild bilateral hydro nephrolithiasis without acute change seen Mild ascites,Possible pericardial cyst Fluid is 1 mL of the suture. Etc. mL directly adjacent to the upper left anterior liver as above unrelated to any recent interventional procedures of concern for small amount of perforation no definite abscess is seen at this time. Repeat CT scan abdomen ; 12/04/2021 no evidence of bowel perforation IV antibiotics discontinued discussed with surgery Dr. Rodriguez -- End stage renal disease Hemodialysis as per schedule --IDDM (insulin dependent diabetes mellitus) High-dose insulin sliding scale coverage and frequent Accu-Cheks every 4 hours -- Hypertension Catapres patch if necessary -- DVT prophylaxis On heparin and GI prophylaxis --Advance care planning Date patient denies education conducted, care plan discussed, diagnosis discussed, prognosis discussed. Patient acknowledges understanding and agrees with care plan. +30 minutes. Will closely monitor the patient and adjust the management as needed Manager Van recommendations noted and appreciated Plan of care reviewed with the patient and her nurse I also discussed with surgeon Dr. Michael Lynne Daily Hospital course 12/04/2021 Follow-up CT scan no evidence of abdominal perforation, discussed with surgeon Dr. Rodriguez Advised to DC IV antibiotics continue supportive care, continue n.p.o. status, NG tube in place intermittent suction IV fluid and pain medications, closely monitor the patient, follow surgery recommendations Plan of care reviewed with the patient and patient's nurse and the case management 12/05/2021; Start clear liquids and closely monitor Follow surgeon's recommendations 12/06/2021; advance diet to full liquids Discussed with surgeon Dr. Rodriguez History Interval history: I have seen and examined the patient at the bedside Patient feels slightly better. On clear liquids Vital signs noted Hospitalist Physical - Constitutional Vitals: Temp Pulse Resp BP Pulse Ox 98.7 F 79 18 164/64 99 12/06/21 05:45 12/06/21 05:45 12/06/21 09:07 12/06/21 05:45 12/06/21 08:19 General appearance: Present: no acute distress, well-nourished - EENT Eyes: Present: PERRL, EOM intact - Neck Neck: Present: supple - Respiratory Respiratory effort: normal Respiratory: bilateral: diminished, negative: rales, rhonchi, wheezing - Cardiovascular Rhythm: regular Heart Sounds: Present: S1 & S2 - Extremities Extremities: no ischemia, No edema - Abdominal General gastrointestinal: soft, non-tender, non-distended - Integumentary Integumentary: Present: clear, warm - Psychiatric Psychiatric: appropriate mood/affect, cooperative - Neurologic Neurologic: moves all extremities Results - Labs CBC & Chem 7: 12/06/21 05:00 12/06/21 05:00 Labs: Laboratory Last Values WBC 5.6 K/mm3 (4.5-11.0) 12/06/21 05:00 RBC 2.54 M/mm3 (3.65-5.03) L 12/06/21 05:00 Hgb 8.1 gm/dl (10.1-14.3) L 12/06/21 05:00 Hct 24.3 % (30.3-42.9) L 12/06/21 05:00 MCV 96 fl (79-97) 12/06/21 05:00 MCH 32 pg (28-32) 12/06/21 05:00 MCHC 33 % (30-34) 12/06/21 05:00 RDW 15.4 % (13.2-15.2) H 12/06/21 05:00 Plt Count 122 K/mm3 (140-440) L 12/06/21 05:00 Lymph % (Auto) 6.1 % (13.4-35.0) L 12/02/21 01:42 [place] % (Auto) Flask Pusher 12/03/21 04:37 Eos % (Auto) 0.0 % (0.0-4.3) 12/02/21 01:42 Baso % (Auto) 0.2 % (0.0-1.8) 12/02/21 01:42 Lymph # (Auto) 0.6 K/mm3 (1.2-5.4) L 12/02/21 01:42 [place] # (Auto) 0.9 K/mm3 (0.0-0.8) H 12/02/21 01:42 Eos # (Auto) 0.0 K/mm3 (0.0-0.4) 12/02/21 01:42 Baso # (Auto) 0.0 K/mm3 (0.0-0.1) 12/02/21 01:42 Add Manual Diff Complete 12/03/21 04:37 Total Counted 100 12/03/21 04:37 Seg Neutrophils % 84.6 % (40.0-70.0) H 12/02/21 01:42 Seg Neuts % (Manual) 70.0 % (40.0-70.0) 12/03/21 04:37 Band Neutrophils % 1.0 % 12/03/21 04:37 Lymphocytes % (Manual) 18.0 % (13.4-35.0) 12/03/21 04:37 Reactive Lymphs % (Man) 0 % 12/03/21 04:37 Monocytes % (Manual) 11.0 % (0.0-7.3) H 12/03/21 04:37 Eosinophils % (Manual) 0 % (0.0-4.3) 12/03/21 04:37 Basophils % (Manual) 0 % (0.0-1.8) 12/03/21 04:37 Metamyelocytes % 0 % 12/03/21 04:37 Myelocytes % 0 % 12/03/21 04:37 Promyelocytes % 0 % 12/03/21 04:37 Blast Cells % 0 % 12/03/21 04:37 Nucleated RBC % Not Reportable 12/03/21 04:37 Seg Neutrophils # 8.2 K/mm3 (1.8-7.7) H 12/02/21 01:42 Seg Neutrophils # Man 2.9 K/mm3 (1.8-7.7) 12/03/21 04:37 Band Neutrophils # 0.0 K/mm3 12/03/21 04:37 Lymphocytes # (Manual) 0.8 K/mm3 (1.2-5.4) L 12/03/21 04:37 Abs React Lymphs (Man) 0.0 K/mm3 12/03/21 04:37 Monocytes # (Manual) 0.5 K/mm3 (0.0-0.8) 12/03/21 04:37 Eosinophils # (Manual) 0.0 K/mm3 (0.0-0.4) 12/03/21 04:37 Basophils # (Manual) 0.0 K/mm3 (0.0-0.1) 12/03/21 04:37 Metamyelocytes # 0.0 K/mm3 12/03/21 04:37 Myelocytes # 0.0 K/mm3 12/03/21 04:37 Promyelocytes # 0.0 K/mm3 12/03/21 04:37 Blast Cells # 0.0 K/mm3 12/03/21 04:37 WBC Morphology Not Reportable 12/03/21 04:37 Hypersegmented Neuts Not Reportable 12/03/21 04:37 Hyposegmented Neuts Not Reportable 12/03/21 04:37 Hypogranular Neuts Not Reportable 12/03/21 04:37 Smudge Cells Not Reportable 12/03/21 04:37 Toxic Granulation Not Reportable 12/03/21 04:37 Toxic Vacuolation Not Reportable 12/03/21 04:37 Dohle Bodies Not Reportable 12/03/21 04:37 Pelger-Huet Anomaly Not Reportable 12/03/21 04:37 Saleem Rods Not Reportable 12/03/21 04:37 Platelet Estimate Consistent w auto 12/03/21 04:37 Clumped Platelets Not Reportable 12/03/21 04:37 Plt Clumps, EDTA Not Reportable 12/03/21 04:37 Large Platelets Not Reportable 12/03/21 04:37 Giant Platelets Not Reportable 12/03/21 04:37 Platelet Satelliting Not Reportable 12/03/21 04:37 Plt Morphology Comment Not Reportable 12/03/21 04:37 RBC Morphology Not Reportable 12/03/21 04:37 Dimorphic RBCs Not Reportable 12/03/21 04:37 Polychromasia Not Reportable 12/03/21 04:37 Hypochromasia Not Reportable 12/03/21 04:37 Poikilocytosis Not Reportable 12/03/21 04:37 Anisocytosis 1+ 12/03/21 04:37 Microcytosis Not Reportable 12/03/21 04:37 Macrocytosis Not Reportable 12/03/21 04:37 Spherocytes Not Reportable 12/03/21 04:37 Pappenheimer Bodies Not Reportable 12/03/21 04:37 Sickle Cells Not Reportable 12/03/21 04:37 Target Cells Not Reportable 12/03/21 04:37 Tear Drop Cells Not Reportable 12/03/21 04:37 Ovalocytes Not Reportable 12/03/21 04:37 Helmet Cells Not Reportable 12/03/21 04:37 [place] Bodies Not Reportable 12/03/21 04:37 Char[place] Rings Not Reportable 12/03/21 04:37 [place] Cells Not Reportable 12/03/21 04:37 Bite Cells Not Reportable 12/03/21 04:37 Crenated Cell Not Reportable 12/03/21 04:37 Elliptocytes Not Reportable 12/03/21 04:37 Acanthocytes (Spur) Not Reportable 12/03/21 04:37 Rouleaux Not Reportable 12/03/21 04:37 Hemoglobin C Crystals Not Reportable 12/03/21 04:37 Schistocytes Not Reportable 12/03/21 04:37 Malaria parasites Not Reportable 12/03/21 04:37 [place] Bodies Not Reportable 12/03/21 04:37 Hem Pathologist Commnt No 12/03/21 04:37 Sodium 140 mmol/L (137-145) 12/06/21 05:00 Potassium 4.0 mmol/L (3.6-5.0) 12/06/21 05:00 Chloride 92.0 mmol/L (98-107) L 12/06/21 05:00 Carbon Dioxide 24 mmol/L (22-30) 12/06/21 05:00 Anion Gap 28 mmol/L 12/06/21 05:00 BUN 55 mg/dL (7-17) H 12/06/21 05:00 Creatinine 10.1 mg/dL (0.6-1.2) H 12/06/21 05:00 Estimated GFR 5 ml/min 12/06/21 05:00 BUN/Creatinine Ratio 5 % 12/06/21 05:00 Glucose 191 mg/dL (65-100) H 12/06/21 05:00 POC Glucose 178 mg/dL (70-105) H 12/06/21 08:14 Calcium 8.9 mg/dL (8.4-10.2) 12/06/21 05:00 Phosphorus 6.00 mg/dL (2.5-4.5) H 12/06/21 05:00 Magnesium 1.80 mg/dL (1.7-2.3) 12/06/21 05:00 Total Bilirubin 0.50 mg/dL (0.1-1.2) 12/03/21 04:37 AST 11 units/L (5-40) 12/03/21 04:37 ALT 7 units/L (7-56) 12/03/21 04:37 Alkaline Phosphatase 113 units/L (35-129) 12/03/21 04:37 Total Protein 6.5 g/dL (6.3-8.2) 12/03/21 04:37 Albumin 3.5 g/dL (3.9-5) L 12/03/21 04:37 Albumin/Globulin Ratio 1.2 % 12/03/21 04:37 Lipase 80 units/L (13-60) H 12/02/21 01:42 Hepatitis A IgM Ab Non-reactive (NonReactive) 12/04/21 09:30 Hep Bs Antigen Non-reactive (Negative) 12/04/21 09:30 Hep B Core IgM Ab Non-reactive (NonReactive) 12/04/21 09:30 Hepatitis C Antibody Non-reactive (NonReactive) 12/04/21 09:30 Boles/IV: Voiding Method Bedpan Active Medications - Current Medications Current Medications: Generic Name Dose Route Start Last Admin Trade Name Freq PRN Reason Stop Dose Admin Acetaminophen 650 mg 12/02/21 19:53 Acetaminophen 650 Mg Rect Supp SD Q4H PRN Pain MILD(1-3)/Fever >100.5/PIÑA Albuterol 2.5 mg 12/02/21 19:47 Albuterol 2.5 Mg/3 Ml Nebu IH Q4HRT PRN Shortness Of Breath Epoetin Ariel-epbx 10,000 unit 12/04/21 10:07 Epoetin Ariel-Epbx 10,000 Unit/1 Ml Vial IV JASS PRN hemodialysis Famotidine 10 mg 12/02/21 22:00 12/06/21 09:01 Famotidine 20 Mg/2 Ml Inj IV 10 mg BID KO Administration Heparin Sodium (Porcine) 5,000 unit 12/02/21 22:00 12/06/21 09:01 Heparin 5,000 Unit/1 Ml Vial SUB-Q 5,000 unit Q12HR KO Administration Hydralazine HCl 10 mg 12/03/21 22:30 12/05/21 21:19 Hydralazine 20 Mg/1 Ml Inj IV 10 mg Q6HR PRN Administration Blood Pressure Hydromorphone HCl 0.5 mg 12/02/21 19:53 12/05/21 15:15 Hydromorphone 0.5 Mg/0.5 Ml Inj IV 0.5 mg Q3H PRN Administration Pain , Severe (7-10) Dextrose/Sodium Chloride 1,000 mls @ 100 mls/hr 12/02/21 20:00 12/06/21 02:12 D5ns IV 100 mls/hr DIRECT KO Administration Sodium Chloride 100 mls @ 999 mls/hr 12/04/21 10:07 Nacl 0.9% IV JASS PRN Hypotension Insulin Human Lispro 0 unit 12/02/21 22:00 12/06/21 09:02 Insulin Lispro 100 Unit/Ml SUB-Q 3 unit Q4HR KO Administration Protocol Morphine Sulfate 2 mg 12/02/21 19:53 12/06/21 09:07 Morphine 2 Mg/1 Ml Inj IV 2 mg Q4H PRN Administration Pain, Moderate (4-6) Ondansetron HCl 4 mg 12/02/21 19:41 12/04/21 21:42 Ondansetron 4 Mg/2 Ml Inj IV 4 mg Q3H PRN Administration Nausea And Vomiting Sodium Chloride 10 ml 12/02/21 22:00 12/06/21 09:02 Sodium Chloride 0.9% 10 Ml Flush Syringe IV 10 ml BID KO Administration Sodium Chloride 10 ml 12/02/21 19:41 Sodium Chloride 0.9% 10 Ml Flush Syringe IV PRN PRN LINE FLUSH
--- NOTE | 2021-12-06 10:35 | Progress Note ---
Assessment and Plan - Patient Problems (1) Small bowel obstruction Current Visit: Yes Status: Acute Plan to address problem: Appears to be improving. Has passed some flatus. Diet per. general surgeon. (2) End stage renal disease Current Visit: Yes Status: Chronic Plan to address problem: Hemodialysis on a Saturday, Saturday and Saturday schedule. Tolerating treatment today with no complications. Q 350/600 (3) Anemia in end-stage renal disease Current Visit: No Status: Acute Plan to address problem: Give erythropoietin on dialysis (4) Hypertensive chronic kidney disease with stage 5 chronic kidney disease or end stage renal disease Current Visit: No Status: Acute Plan to address problem: Follow-up blood pressure on current medications (5) Type 2 diabetes mellitus with diabetic chronic kidney disease Current Visit: No Status: Acute Plan to address problem: Blood sugar management by primary attending Subjective Date of service: 12/06/21 Principal diagnosis: End-stage renal disease, small bowel obstruction Interval history: Patient seen lying in bed on dialysis. She feels better. Still no bowel movement but has passed some flatus. Abdominal pain is better. No nausea vomiting. NGT is out Objective - Exam Narrative Exam: Middle-aged -[place]e female lying in bed in no acute distress HEENT: NCAT, pink conjunctiva, anicteric sclera Neck: Supple, no venous distention CVS: S1S2 RRR with no murmur, rub or gallop Chest: Clear to auscultation Abdomen: Protuberant, soft to firm, tenderness resolving in the epigastrium, and periumbilical area, no organomegaly, bowel sounds are present Extremities: No edema Genitourinary deferred Skin warm and dry Neuro: Awake, alert no focal deficits - Vital Signs Vital signs: Vital Signs - 12hr 12/05/21 12/06/21 12/06/21 22:56 05:45 08:19 Temperature 98.7 F Pulse Rate 82 79 Respiratory 18 18 Rate Blood Pressure 170/70 164/64 [Right] O2 Sat by Pulse 100 100 99 Oximetry 12/06/21 09:07 Temperature Pulse Rate Respiratory 18 Rate Blood Pressure [Right] O2 Sat by Pulse Oximetry - Lab 12/06/21 05:00 12/06/21 05:00 Most recent lab results Calcium 8.9 mg/dL (8.4-10.2) 12/06/21 05:00 Phosphorus 6.00 mg/dL (2.5-4.5) H 12/06/21 05:00 Magnesium 1.80 mg/dL (1.7-2.3) 12/06/21 05:00 Medications & Allergies - Medications Allergies/Adverse Reactions: Allergies No Known Allergies Allergy (Verified 05/03/21 11:21) Home Medications: Home Medications Medication Instructions Recorded Confirmed Last Taken Type Albuterol Mdi (or & Nicu Only) 2 puff IH QID PRN 03/23/21 12/03/21 05/01/21 History [ProAir HFA Inhaler] Aspirin EC [Halfprin EC] 81 mg PO QDAY 03/23/21 12/03/21 12/02/21 14:00 History Calcium Acetate [Phoslo] 667 mg PO TID 03/23/21 12/03/21 12/02/21 14:00 History Hydralazine HCl 100 mg PO TID 03/23/21 12/03/21 12/02/21 14:00 History Insulin Glargine,Hum.rec.anlog 22 unit SQ QHS 03/23/21 12/03/21 12/01/21 22:00 History [Lantus Solostar] Insulin Lispro [Humalog 100 3 units SQ TIDAC 03/23/21 12/03/21 12/02/21 14:00 History UNITS/ML Kwikpen] NIFEdipine [Nifedipine ER] 60 mg PO BID 03/23/21 12/03/21 12/02/21 14:00 History carvediloL [Coreg] 12.5 mg PO BID 03/23/21 12/03/21 12/02/21 14:00 History cloNIDine-TTS PATCH [Catapres-Tts 1 patch TD Q7D 03/23/21 12/03/21 11/25/21 15:00 History 0.3mg Patch] lisinopriL [Lisinopril] 20 mg PO QDAY 03/23/21 12/03/21 12/02/21 14:00 History LORazepam [Lorazepam] 0.5 mg PO DAILY 05/02/21 12/03/21 12/02/21 14:00 History Vit-Fe Fumar-FA [ 1 tab PO QDAY 05/03/21 12/03/21 12/02/21 14:00 History Vitamin] Active Medications: Generic Name Dose Route Start Last Admin Trade Name Freq PRN Reason Stop Dose Admin Acetaminophen 650 mg 12/02/21 19:53 Acetaminophen [address] Q4H PRN Pain MILD(1-3)/Fever >100.5/PIÑA Albuterol 2.5 mg 12/02/21 19:47 Albuterol 2.5 Mg/3 Ml Nebu IH Q4HRT PRN Shortness Of Breath Epoetin Ariel-epbx 10,000 unit 12/04/21 10:07 Epoetin Ariel-Epbx 10,000 Unit/1 Ml Vial IV JASS PRN hemodialysis Famotidine 10 mg 12/02/21 22:00 12/06/21 09:01 Famotidine 20 Mg/2 Ml Inj IV 10 mg BID KO Administration Heparin Sodium (Porcine) 5,000 unit 12/02/21 22:00 12/06/21 09:01 Heparin 5,000 Unit/1 Ml Vial SUB-Q 5,000 unit Q12HR KO Administration Hydralazine HCl 10 mg 12/03/21 22:30 12/05/21 21:19 Hydralazine 20 Mg/1 Ml Inj IV 10 mg Q6HR PRN Administration Blood Pressure Hydromorphone HCl 0.5 mg 12/02/21 19:53 12/05/21 15:15 Hydromorphone 0.5 Mg/0.5 Ml Inj IV 0.5 mg Q3H PRN Administration Pain , Severe (7-10) Dextrose/Sodium Chloride 1,000 mls @ 100 mls/hr 12/02/21 20:00 12/06/21 02:12 D5ns IV 100 mls/hr DIRECT KO Administration Sodium Chloride 100 mls @ 999 mls/hr 12/04/21 10:07 Nacl 0.9% IV JASS PRN Hypotension Insulin Human Lispro 0 unit 12/02/21 22:00 12/06/21 09:02 Insulin Lispro 100 Unit/Ml SUB-Q 3 unit Q4HR KO Administration Protocol Morphine Sulfate 2 mg 12/02/21 19:53 12/06/21 09:07 Morphine 2 Mg/1 Ml Inj IV 2 mg Q4H PRN Administration Pain, Moderate (4-6) Ondansetron HCl 4 mg 12/02/21 19:41 12/04/21 21:42 Ondansetron 4 Mg/2 Ml Inj IV 4 mg Q3H PRN Administration Nausea And Vomiting Sodium Chloride 10 ml 12/02/21 22:00 12/06/21 09:02 Sodium Chloride 0.9% 10 Ml Flush Syringe IV 10 ml BID KO Administration Sodium Chloride 10 ml 12/02/21 19:41 Sodium Chloride 0.9% 10 Ml Flush Syringe IV PRN PRN LINE FLUSH
[2021-12-06] MEDS: HYDROmorphone 0.5 MG/0.5 ML INJ IV PRN ×2 (18:40→22:21)
[2021-12-06] MEDS: hydrALAZINE 20 MG/1 ML INJ IV PRN (18:40)
[2021-12-07] MEDS: MORPHINE 2 MG/1 ML INJ IV PRN ×2 (01:02→10:09)
[2021-12-07] MEDS: INSULIN LISPRO 100 UNIT/ML SUB-Q SCH ×4 (02:24→16:43)
[2021-12-07] MEDS: hydrALAZINE 20 MG/1 ML INJ IV PRN (03:51)
[2021-12-07] MEDS: ONDANSETRON 4 MG/2 ML INJ IV PRN (03:52)
[2021-12-07] MEDS: HYDROmorphone 0.5 MG/0.5 ML INJ IV PRN (05:32)
--- NOTE | 2021-12-07 08:35 | Progress Note ---
Assessment and Plan - Patient Problems (1) Small bowel obstruction Current Visit: Yes Status: Acute Plan to address problem: Appears to be improving. Has passed some flatus. Continue management by general surgeon. (2) End stage renal disease Current Visit: Yes Status: Chronic Plan to address problem: Hemodialysis on a Saturday, Saturday and Saturday schedule. I told her to discuss with her primary secretarial teacher on discharge about referral back to [facility] for reevaluation regarding suitability for kidney transplantation (3) Anemia in end-stage renal disease Current Visit: No Status: Acute Plan to address problem: Give erythropoietin on dialysis (4) Hypertensive chronic kidney disease with stage 5 chronic kidney disease or end stage renal disease Current Visit: No Status: Acute Plan to address problem: Follow-up blood pressure on current medications (5) Type 2 diabetes mellitus with diabetic chronic kidney disease Current Visit: No Status: Acute Plan to address problem: Blood sugar management by primary attending Subjective Date of service: 12/07/21 Principal diagnosis: End-stage renal disease, small bowel obstruction Interval history: Patient seen lying in bed on dialysis. She feels better. Passed more flatus. Abdominal pain is improving. No nausea or vomiting. She asked if I can help get her on the kidney transplant list Objective - Exam Narrative Exam: Middle-aged -Northern Irish female lying in bed in no acute distress HEENT: NCAT, pink conjunctiva, anicteric sclera Neck: Supple, no venous distention CVS: S1S2 RRR with no murmur, rub or gallop Chest: Clear to auscultation Abdomen: Protuberant, soft to firm, no tenderness, no organomegaly, bowel sounds are present Extremities: No edema Genitourinary deferred Skin warm and dry Neuro: Awake, alert no focal deficits - Vital Signs Vital signs: Vital Signs - 12hr 12/06/21 12/07/21 12/07/21 21:00 03:45 03:51 Temperature 98.9 F 98.7 F Pulse Rate 87 97 H 93 H Respiratory 18 18 Rate Blood Pressure 180/77 199/89 199/89 O2 Sat by Pulse 100 94 Oximetry - Lab 12/06/21 05:00 12/06/21 05:00 Most recent lab results Calcium 8.9 mg/dL (8.4-10.2) 12/06/21 05:00 Phosphorus 6.00 mg/dL (2.5-4.5) H 12/06/21 05:00 Magnesium 1.80 mg/dL (1.7-2.3) 12/06/21 05:00 Medications & Allergies - Medications Allergies/Adverse Reactions: Allergies No Known Allergies Allergy (Verified 05/03/21 11:21) Home Medications: Home Medications Medication Instructions Recorded Confirmed Last Taken Type Albuterol Mdi (or & Nicu Only) 2 puff IH QID PRN 03/23/21 12/03/21 05/01/21 History [ProAir HFA Inhaler] Aspirin EC [Halfprin EC] 81 mg PO QDAY 03/23/21 12/03/21 12/02/21 14:00 History Calcium Acetate [Phoslo] 667 mg PO TID 03/23/21 12/03/21 12/02/21 14:00 History Hydralazine HCl 100 mg PO TID 03/23/21 12/03/21 12/02/21 14:00 History Insulin Glargine,Hum.rec.anlog 22 unit SQ QHS 03/23/21 12/03/21 12/01/21 22:00 History [Lantus Solostar] Insulin Lispro [Humalog 100 3 units SQ TIDAC 03/23/21 12/03/21 12/02/21 14:00 History UNITS/ML Kwikpen] NIFEdipine [Nifedipine ER] 60 mg PO BID 03/23/21 12/03/21 12/02/21 14:00 History carvediloL [Coreg] 12.5 mg PO BID 03/23/21 12/03/21 12/02/21 14:00 History cloNIDine-TTS PATCH [Catapres-Tts 1 patch TD Q7D 03/23/21 12/03/21 11/25/21 15:00 History 0.3mg Patch] lisinopriL [Lisinopril] 20 mg PO QDAY 03/23/21 12/03/21 12/02/21 14:00 History LORazepam [Lorazepam] 0.5 mg PO DAILY 05/02/21 12/03/21 12/02/21 14:00 History Vit-Fe Fumar-FA [ 1 tab PO QDAY 05/03/21 12/03/21 12/02/21 14:00 History Vitamin] Active Medications: Generic Name Dose Route Start Last Admin Trade Name Freq PRN Reason Stop Dose Admin Acetaminophen 650 mg 12/02/21 19:53 Acetaminophen [address] Q4H PRN Pain MILD(1-3)/Fever >100.5/PIÑA Albuterol 2.5 mg 12/02/21 19:47 Albuterol 2.5 Mg/3 Ml Nebu IH Q4HRT PRN Shortness Of Breath Epoetin Ariel-epbx 10,000 unit 12/04/21 10:07 Epoetin Ariel-Epbx 10,000 Unit/1 Ml Vial IV JASS PRN hemodialysis Famotidine 10 mg 12/02/21 22:00 12/06/21 22:22 Famotidine 20 Mg/2 Ml Inj IV 10 mg BID KO Administration Heparin Sodium (Porcine) 5,000 unit 12/02/21 22:00 12/06/21 22:22 Heparin 5,000 Unit/1 Ml Vial SUB-Q 5,000 unit Q12HR KO Administration Hydralazine HCl 10 mg 12/03/21 22:30 12/07/21 03:51 Hydralazine 20 Mg/1 Ml Inj IV 10 mg Q6HR PRN Administration Blood Pressure Hydromorphone HCl 0.5 mg 12/02/21 19:53 12/07/21 05:32 Hydromorphone 0.5 Mg/0.5 Ml Inj IV 0.5 mg Q3H PRN Administration Pain , Severe (7-10) Dextrose/Sodium Chloride 1,000 mls @ 100 mls/hr 12/02/21 20:00 12/06/21 02:12 D5ns IV 100 mls/hr DIRECT KO Administration Sodium Chloride 100 mls @ 999 mls/hr 12/04/21 10:07 Nacl 0.9% IV JASS PRN Hypotension Insulin Human Lispro 0 unit 12/02/21 22:00 12/07/21 06:16 Insulin Lispro 100 Unit/Ml SUB-Q 3 unit Q4HR KO Administration Protocol Morphine Sulfate 2 mg 12/02/21 19:53 12/07/21 01:02 Morphine 2 Mg/1 Ml Inj IV 2 mg Q4H PRN Administration Pain, Moderate (4-6) Ondansetron HCl 4 mg 12/02/21 19:41 12/07/21 03:52 Ondansetron 4 Mg/2 Ml Inj IV 4 mg Q3H PRN Administration Nausea And Vomiting Sodium Chloride 10 ml 12/02/21 22:00 12/06/21 22:24 Sodium Chloride 0.9% 10 Ml Flush Syringe IV 10 ml BID KO Administration Sodium Chloride 10 ml 12/02/21 19:41 Sodium Chloride 0.9% 10 Ml Flush Syringe IV PRN PRN LINE FLUSH
--- NOTE | 2021-12-07 09:09 | Progress Note ---
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 CAT scans from 12/02 and from this morning 12/04 are reviewed with radiologist. Small amount of free air seen on admission may have been part of a decompressed loop of small bowel. Areas improved on this morning's CAT scan. Patient with continued signs of small bowel obstruction however. NG tube requiring advancing 12 cm. Patient feeling better today tolerating full liquids. If all medical conditions are stable patient can be discharged today on clear liquids with instructions to advance her diet this weekend. I can see patient in the office next week. It may be safer to keep the patient on full liquids until I see her in the office on Saturday. Unofficially reports from [facility] indicate the patient had a segment of small b owel resected with a laparoscopic assisted open technique. An area of intussusception with the initial carcinoid tumor and several lymph nodes were resected. A handsewn anastomosis was created. As many of his 5 lymph nodes were noted to be positive with metastases. Patient also being closely followed by medical oncology at [facility]. Her last visit was last year without evidence of recurrent disease. She will be referred back to her medical oncologist from the office visit anticipated as an ou tpatient next week. Subjective Date of service: 12/07/21 Patient Reports: Positive: feels better, tolerating liquids well, flatus Narrative: Patient feeling better today tolerating full liquids. If all medical conditions are stable patient can be discharged today on clear liquids with instructions to advance her diet this weekend. I can see patient in the office next week. It may be safer to keep the patient on full liquids until I see her in the office on Saturday. Unofficially reports from [facility] indicate the patient had a segment of small bowel resected with a laparoscopic assisted open technique. An area of intussusception with the initial carcinoid tumor and several lymph nodes were resected. A handsewn anastomosis was created. As many of his 5 lymph nodes were noted to be positive with metastases. Patient also being closely followed by medical oncology at [facility]. Her last visit was last year without evidence of recurrent disease. She will be referred back to her medical oncologist from the office visit anticipated as an outpatient next week. Objective Vital Signs - 12hr 12/07/21 12/07/21 03:45 03:51 Temperature 98.7 F Pulse Rate 97 H 93 H Respiratory 18 Rate Blood Pressure 199/89 199/89 O2 Sat by Pulse 94 Oximetry - Labs 12/06/21 05:00 12/06/21 05:00
[2021-12-07] MEDS: HEPARIN 5,000 UNIT/1 ML VIAL SUB-Q SCH (10:02)
[2021-12-07] MEDS: FAMOTIDINE 20 MG/2 ML INJ IV SCH (10:10)
--- NOTE | 2021-12-07 10:16 | Progress Note ---
Assessment and Plan Assessment and plan: Advance Directives: Yes (Full code) VTE prophylaxis?: Chemical Plan of care discussed with patient/family: Yes -- Small bowel obstruction NG tube to low intermittent suction Surgery following, patient passed flatus IV fluids supportive care, start clear liquids --Possible bowel perforation/small bowel perforation ruled out IV antibiotic started with Zosyn and vancomycin No elevated white count CT abdomen and pelvis: 12/02/2021 Evidence of moderate mid to lower small bowel obstruction Mild bilateral hydro nephrolithiasis without acute change seen Mild ascites,Possible pericardial cyst Fluid is 1 mL of the suture. Etc. mL directly adjacent to the upper left anterior liver as above unrelated to any recent interventional procedures of concern for small amount of perforation no definite abscess is seen at this time. Repeat CT scan abdomen ; 12/04/2021 no evidence of bowel perforation IV antibiotics discontinued discussed with surgery Dr. Rodriguez -- End stage renal disease Hemodialysis as per schedule --IDDM (insulin dependent diabetes mellitus) High-dose insulin sliding scale coverage and frequent Accu-Cheks every 4 hours -- Hypertension Catapres patch if necessary -- DVT prophylaxis On heparin and GI prophylaxis --Advance care planning Date patient denies education conducted, care plan discussed, diagnosis discussed, prognosis discussed. Patient acknowledges understanding and agrees with care plan. +30 minutes. Will closely monitor the patient and adjust the management as needed [employer] recommendations noted and appreciated Plan of care reviewed with the patient and her nurse I also discussed with surgeon Dr. Michael Lynne Hospitalist Physical - Constitutional Vitals: Temp Pulse Resp BP Pulse Ox 98.7 F 93 H 18 199/89 94 12/07/21 03:45 12/07/21 03:51 12/07/21 03:45 12/07/21 03:51 12/07/21 03:45 General appearance: Present: no acute distress, well-nourished Results - Labs CBC & Chem 7: 12/06/21 05:00 12/06/21 05:00 Labs: Laboratory Last Values WBC 5.6 K/mm3 (4.5-11.0) 12/06/21 05:00 RBC 2.54 M/mm3 (3.65-5.03) L 12/06/21 05:00 Hgb 8.1 gm/dl (10.1-14.3) L 12/06/21 05:00 Hct 24.3 % (30.3-42.9) L 12/06/21 05:00 MCV 96 fl (79-97) 12/06/21 05:00 MCH 32 pg (28-32) 12/06/21 05:00 MCHC 33 % (30-34) 12/06/21 05:00 RDW 15.4 % (13.2-15.2) H 12/06/21 05:00 Plt Count 122 K/mm3 (140-440) L 12/06/21 05:00 Lymph % (Auto) 6.1 % (13.4-35.0) L 12/02/21 01:42 [place] % (Auto) Spe[place] 12/03/21 04:37 Eos % (Auto) 0.0 % (0.0-4.3) 12/02/21 01:42 Baso % (Auto) 0.2 % (0.0-1.8) 12/02/21 01:42 Lymph # (Auto) 0.6 K/mm3 (1.2-5.4) L 12/02/21 01:42 [place] # (Auto) 0.9 K/mm3 (0.0-0.8) H 12/02/21 01:42 Eos # (Auto) 0.0 K/mm3 (0.0-0.4) 12/02/21 01:42 Baso # (Auto) 0.0 K/mm3 (0.0-0.1) 12/02/21 01:42 Add Manual Diff Complete 12/03/21 04:37 Total Counted 100 12/03/21 04:37 Seg Neutrophils % 84.6 % (40.0-70.0) H 12/02/21 01:42 Seg Neuts % (Manual) 70.0 % (40.0-70.0) 12/03/21 04:37 Band Neutrophils % 1.0 % 12/03/21 04:37 Lymphocytes % (Manual) 18.0 % (13.4-35.0) 12/03/21 04:37 Reactive Lymphs % (Man) 0 % 12/03/21 04:37 Monocytes % (Manual) 11.0 % (0.0-7.3) H 12/03/21 04:37 Eosinophils % (Manual) 0 % (0.0-4.3) 12/03/21 04:37 Basophils % (Manual) 0 % (0.0-1.8) 12/03/21 04:37 Metamyelocytes % 0 % 12/03/21 04:37 Myelocytes % 0 % 12/03/21 04:37 Promyelocytes % 0 % 12/03/21 04:37 Blast Cells % 0 % 12/03/21 04:37 Nucleated RBC % Not Reportable 12/03/21 04:37 Seg Neutrophils # 8.2 K/mm3 (1.8-7.7) H 12/02/21 01:42 Seg Neutrophils # Man 2.9 K/mm3 (1.8-7.7) 12/03/21 04:37 Band Neutrophils # 0.0 K/mm3 12/03/21 04:37 Lymphocytes # (Manual) 0.8 K/mm3 (1.2-5.4) L 12/03/21 04:37 Abs React Lymphs (Man) 0.0 K/mm3 12/03/21 04:37 Monocytes # (Manual) 0.5 K/mm3 (0.0-0.8) 12/03/21 04:37 Eosinophils # (Manual) 0.0 K/mm3 (0.0-0.4) 12/03/21 04:37 Basophils # (Manual) 0.0 K/mm3 (0.0-0.1) 12/03/21 04:37 Metamyelocytes # 0.0 K/mm3 12/03/21 04:37 Myelocytes # 0.0 K/mm3 12/03/21 04:37 Promyelocytes # 0.0 K/mm3 12/03/21 04:37 Blast Cells # 0.0 K/mm3 12/03/21 04:37 WBC Morphology Not Reportable 12/03/21 04:37 Hypersegmented Neuts Not Reportable 12/03/21 04:37 Hyposegmented Neuts Not Reportable 12/03/21 04:37 Hypogranular Neuts Not Reportable 12/03/21 04:37 Smudge Cells Not Reportable 12/03/21 04:37 Toxic Granulation Not Reportable 12/03/21 04:37 Toxic Vacuolation Not Reportable 12/03/21 04:37 Dohle Bodies Not Reportable 12/03/21 04:37 Pelger-Huet Anomaly Not Reportable 12/03/21 04:37 Saleem Rods Not Reportable 12/03/21 04:37 Platelet Estimate Consistent w auto 12/03/21 04:37 Clumped Platelets Not Reportable 12/03/21 04:37 Plt Clumps, EDTA Not Reportable 12/03/21 04:37 Large Platelets Not Reportable 12/03/21 04:37 Giant Platelets Not Reportable 12/03/21 04:37 Platelet Satelliting Not Reportable 12/03/21 04:37 Plt Morphology Comment Not Reportable 12/03/21 04:37 RBC Morphology Not Reportable 12/03/21 04:37 Dimorphic RBCs Not Reportable 12/03/21 04:37 Polychromasia Not Reportable 12/03/21 04:37 Hypochromasia Not Reportable 12/03/21 04:37 Poikilocytosis Not Reportable 12/03/21 04:37 Anisocytosis 1+ 12/03/21 04:37 Microcytosis Not Reportable 12/03/21 04:37 Macrocytosis Not Reportable 12/03/21 04:37 Spherocytes Not Reportable 12/03/21 04:37 Pappenheimer Bodies Not Reportable 12/03/21 04:37 Sickle Cells Not Reportable 12/03/21 04:37 Target Cells Not Reportable 12/03/21 04:37 Tear Drop Cells Not Reportable 12/03/21 04:37 Ovalocytes Not Reportable 12/03/21 04:37 Helmet Cells Not Reportable 12/03/21 04:37 [place] Bodies Not Reportable 12/03/21 04:37 [place] Rings Not Reportable 12/03/21 04:37 Consuelo Cells Not Reportable 12/03/21 04:37 Bite Cells Not Reportable 12/03/21 04:37 Crenated Cell Not Reportable 12/03/21 04:37 Elliptocytes Not Reportable 12/03/21 04:37 Acanthocytes (Spur) Not Reportable 12/03/21 04:37 Rouleaux Not Reportable 12/03/21 04:37 Hemoglobin C Crystals Not Reportable 12/03/21 04:37 Schistocytes Not Reportable 12/03/21 04:37 Malaria parasites Not Reportable 12/03/21 04:37 Parker Bodies Not Reportable 12/03/21 04:37 Hem Pathologist Commnt No 12/03/21 04:37 Sodium 140 mmol/L (137-145) 12/06/21 05:00 Potassium 4.0 mmol/L (3.6-5.0) 12/06/21 05:00 Chloride 92.0 mmol/L (98-107) L 12/06/21 05:00 Carbon Dioxide 24 mmol/L (22-30) 12/06/21 05:00 Anion Gap 28 mmol/L 12/06/21 05:00 BUN 55 mg/dL (7-17) H 12/06/21 05:00 Creatinine 10.1 mg/dL (0.6-1.2) H 12/06/21 05:00 Estimated GFR 5 ml/min 12/06/21 05:00 BUN/Creatinine Ratio 5 % 12/06/21 05:00 Glucose 191 mg/dL (65-100) H 12/06/21 05:00 POC Glucose 159 mg/dL (70-105) H 12/07/21 04:56 Calcium 8.9 mg/dL (8.4-10.2) 12/06/21 05:00 Phosphorus 6.00 mg/dL (2.5-4.5) H 12/06/21 05:00 Magnesium 1.80 mg/dL (1.7-2.3) 12/06/21 05:00 Total Bilirubin 0.50 mg/dL (0.1-1.2) 12/03/21 04:37 AST 11 units/L (5-40) 12/03/21 04:37 ALT 7 units/L (7-56) 12/03/21 04:37 Alkaline Phosphatase 113 units/L (35-129) 12/03/21 04:37 Total Protein 6.5 g/dL (6.3-8.2) 12/03/21 04:37 Albumin 3.5 g/dL (3.9-5) L 12/03/21 04:37 Albumin/Globulin Ratio 1.2 % 12/03/21 04:37 Lipase 80 units/L (13-60) H 12/02/21 01:42 Hepatitis A IgM Ab Non-reactive (NonReactive) 12/04/21 09:30 Hep Bs Antigen Non-reactive (Negative) 12/04/21 09:30 Hep B Core IgM Ab Non-reactive (NonReactive) 12/04/21 09:30 Hepatitis C Antibody Non-reactive (NonReactive) 12/04/21 09:30 Boles/IV: Voiding Method Bedside Commode Active Medications - Current Medications Current Medications: Generic Name Dose Route Start Last Admin Trade Name Freq PRN Reason Stop Dose Admin Acetaminophen 650 mg 12/02/21 19:53 Acetaminophen 650 Mg Rect Supp DE Q4H PRN Pain MILD(1-3)/Fever >100.5/PIÑA Albuterol 2.5 mg 12/02/21 19:47 Albuterol 2.5 Mg/3 Ml Nebu IH Q4HRT PRN Shortness Of Breath Epoetin Ariel-epbx 10,000 unit 12/04/21 10:07 Epoetin Ariel-Epbx 10,000 Unit/1 Ml Vial IV JASS PRN hemodialysis Famotidine 10 mg 12/02/21 22:00 12/07/21 10:10 Famotidine 20 Mg/2 Ml Inj IV 10 mg BID KO Administration Heparin Sodium (Porcine) 5,000 unit 12/02/21 22:00 12/07/21 10:02 Heparin 5,000 Unit/1 Ml Vial SUB-Q 5,000 unit Q12HR KO Administration Hydralazine HCl 10 mg 12/07/21 10:14 Hydralazine 20 Mg/1 Ml Inj IV Q4H PRN Hypertension Hydralazine HCl 50 mg 12/07/21 14:00 Hydralazine 25 Mg Tab PO Q8HR KO Hydromorphone HCl 0.5 mg 12/02/21 19:53 12/07/21 05:32 Hydromorphone 0.5 Mg/0.5 Ml Inj IV 0.5 mg Q3H PRN Administration Pain , Severe (7-10) Dextrose/Sodium Chloride 1,000 mls @ 100 mls/hr 12/02/21 20:00 12/06/21 02:12 D5ns IV 100 mls/hr DIRECT KO Administration Sodium Chloride 100 mls @ 999 mls/hr 12/04/21 10:07 Nacl 0.9% IV JASS PRN Hypotension Insulin Human Lispro 0 unit 12/02/21 22:00 12/07/21 06:16 Insulin Lispro 100 Unit/Ml SUB-Q 3 unit Q4HR KO Administration Protocol Morphine Sulfate 2 mg 12/02/21 19:53 12/07/21 10:09 Morphine 2 Mg/1 Ml Inj IV 2 mg Q4H PRN Administration Pain, Moderate (4-6) Ondansetron HCl 4 mg 12/02/21 19:41 12/07/21 03:52 Ondansetron 4 Mg/2 Ml Inj IV 4 mg Q3H PRN Administration Nausea And Vomiting Sodium Chloride 10 ml 12/02/21 22:00 12/07/21 10:10 Sodium Chloride 0.9% 10 Ml Flush Syringe IV 10 ml BID KO Administration Sodium Chloride 10 ml 12/02/21 19:41 Sodium Chloride 0.9% 10 Ml Flush Syringe IV PRN PRN LINE FLUSH
[2021-12-07] MEDS ORDERED: hydrALAZINE 20 MG/1 ML INJ IV PRN (11:00)
[2021-12-07 12:57] VITALS: BP 160/61
[2021-12-07] MEDS ORDERED: hydrALAZINE 25 MG TAB PO SCH (14:00)
--- NOTE | 2021-12-07 15:09 | Discharge Summary ---
Providers - Providers Date of Admission: 12/02/21 19:42 Date of discharge: 12/07/21 Attending physician: ANGUS LOZADA 12/02/21 20:14 Consult to Physician [CONS] Routine Comment: Consulting Provider: EMY RODRIGUEZ Physician Instructions: Reason For Exam: SBO 12/03/21 10:43 Consult to Physician [CONS] Routine Comment: Consulting Provider: MANNY MALIK Physician Instructions: Reason For Exam: End-stage renal disease on hemodialysis TTS Primary care physician: ERNIE LOCKWOOD Hospitalization Reason for admission: Abdominal pain, small bowel obstruction Condition: Stable Pertinent studies: CT abdomen and pelvis: 12/02/2021 Evidence of moderate mid to lower small bowel obstruction Mild bilateral hydro nephrolithiasis without acute change seen Mild ascites,Possible pericardial cyst Fluid is 1 mL of the suture. Etc. mL directly adjacent to the upper left anterior liver as above unrelated to any recent interventional procedures of concern for small amount of perforation no definite abscess is seen at this time. Repeat CT scan abdomen ; 12/04/2021 no evidence of bowel perforation Hospital course: -66-year-old female patient with significant past medical history of ESRD on hemodialysis TTS hypertension was admitted to emergency room with abdominal pain of 1 day duration. Initial work-up is consistent with small bowel obstruction, possible small bowel perforation seen on CT scan, patient was placed on n.p.o. status and NG suctioning intermittent, evaluated by surgeon advised intermittent suction n.p.o. status and serial abdominal x-rays, nephrology evaluated the patient and scheduled for dialysis per schedule patient blood pressures blood sugars closely monitored medications optimized Nephrology and surgeon following the patient daily and optimized medications Initial CT scan findings suspicion for small bowel perforation however on repeat CT scan and wound evaluated by surgeon small bowel perforation is completely ruled out.Patient's symptoms slowly but gradually improved patient was started on clear liquids subsequently remove the NG tube and advance to full liquids today. Patient tolerated well Today patient is comfortable no new complaints, vital signs stable, patient already has established outpatient hemodialysis which was set up. Cleared by all the consultants Stable at discharge Discharge diagnosis - Small bowel obstruction NG tube to low intermittent suction Surgery following, patient passed flatus IV fluids supportive care, start clear liquids --Possible bowel perforation/small bowel perforation ruled out IV antibiotic started with Zosyn and vancomycin No elevated white count CT abdomen and pelvis: 12/02/2021 Evidence of moderate mid to lower small bowel obstruction Mild bilateral hydro nephrolithiasis without acute change seen Mild ascites,Possible pericardial cyst Fluid is 1 mL of the suture. Etc. mL directly adjacent to the upper left anterior liver as above unrelated to any recent interventional procedures of concern for small amount of perforation no definite abscess is seen at this time. Repeat CT scan abdomen ; 12/04/2021 no evidence of bowel perforation IV antibiotics discontinued discussed with surgery Dr. Rodriguez -- End stage renal disease MWF Hemodialysis as per schedule --IDDM (insulin dependent diabetes mellitus) High-dose insulin sliding scale coverage and frequent Accu-Cheks every 4 hours -- Hypertension Catapres patch if necessary -- DVT prophylaxis On heparin and GI prophylaxis --Advance care planning Date patient denies education conducted, care plan discussed, diagnosis discussed, prognosis discussed. Patient acknowledges understanding and agrees with care plan. +30 minutes. Cleared by all the consultants for discharge and follow-up per schedule Stable at discharge Disposition: 01 HOME / SELF CARE / HOMELESS Final Discharge Diagnosis (Prints w/discharge instructions): Small bowel obstruction/resolved. Small bowel perforation ruled out. End-stage renal disease on hemodialysis MWF. Type 2 diabetes mellitus. Hypertension Time spent for discharge: 35 min Core Measure Documentation - Palliative Care Palliative Care/ Comfort Measures: Not Applicable - Core Measures Any of the following diagnoses?: none Exam - Constitutional Vitals: Temp Pulse Resp BP Pulse Ox 99.2 F 84 18 160/61 97 12/07/21 12:51 12/07/21 12:51 12/07/21 12:51 12/07/21 12:51 12/07/21 12:51 General appearance: Present: no acute distress, well-nourished - EENT Eyes: Present: PERRL, EOM intact - Neck Neck: Present: supple, normal ROM, enlarged thyroid - Respiratory Respiratory effort: normal Respiratory: bilateral: diminished, rhonchi, negative: rales, wheezing - Cardiovascular Rhythm: regular Heart Sounds: Present: S1 & S2 - Extremities Extremities: no ischemia, No edema - Abdominal General gastrointestinal: Present: soft, non-distended, normal bowel sounds - Integumentary Integumentary: Present: clear, warm - Musculoskeletal Musculoskeletal: strength equal bilaterally - Psychiatric Psychiatric: appropriate mood/affect, cooperative - Neurologic Neurologic: moves all extremities Plan Activity: advance as tolerated, fall precautions Diet: diabetic, renal, other (Clear liquid diet till you see the surgeon on Saturday) Additional Instructions: Follow renal/hemodialysis per schedule Saturday/Saturday/Saturday. Next dialysis tomorrow Saturday. Follow-up with surgeon Dr. Michael Lynne on 12/11/2021 at 10 AM in the office. Continue clear liquid diet till you see the surgeon. If you have worsening symptoms contact MD or go to the nearest emergency room as needed. Follow-up with primary care physician in 1 week. Follow-up your [facility] physicians per schedule Follow up with: EMY RODRIGUEZ MD [Staff Physician] - 12/11/21 10:00 am MANNY MALIK MD [Staff Physician] - 7 Days Prescriptions: oxyCODONE /ACETAMINOPHEN [Percocet 5/325] 1 tab PO Q8H PRN #15 PRN Reason: Pain , Severe (7-10) Ondansetron [Zofran Odt] 4 mg PO Q8HR PRN #20 tab.rapdis PRN Reason: Nausea And Vomiting
== END 2021-12-07 18:25 | disposition home or self-care (01) | DRG 388 ==
LOC: ED 00:25 → 3A 19:42
PROVIDERS: ADMIT Internal Medicine; ATTEND Internal Medicine
PROC: 0D9670Z Drainage of Stomach with Drainage Device, Via Natural or Artificial Opening (ICD-10-PCS; principal; 2021-12-04)
PROC: 5A1D70Z Performance of Urinary Filtration, Intermittent, Less than 6 Hours Per Day (ICD-10-PCS; 2021-12-04)
PROC: 5A1D70Z Performance of Urinary Filtration, Intermittent, Less than 6 Hours Per Day (ICD-10-PCS; 2021-12-06)
DX: K56.609 Unspecified intestinal obstruction, unspecified as to partial versus complete obstruction (principal); N18.6 End stage renal disease; I12.0 Hypertensive chronic kidney disease with stage 5 chronic kidney disease or end stage renal disease; E11.22 Type 2 diabetes mellitus with diabetic chronic kidney disease; D63.1 Anemia in chronic kidney disease; Z79.899 Other long term (current) drug therapy; Z79.4 Long term (current) use of insulin; Z82.3 Family history of stroke; Z79.82 Long term (current) use of aspirin
CPT/HCPCS: 36415; 74018; 74019; 74176; 80048; 80053; 80074; 82962; 83690; 83735; 84100; 85007; 85025; 85027; G0378; J3490; Q9967; J0360; J1170; J1644; J1815; J2060; J2270; J2405; J2543; J3370; J7042